=== PATIENT | female | born 1945 | race Caucasian/White ===

== ENCOUNTER 2016-09-18 08:38 | Outpatient (CLI) | payer MEDICARE ==
[2016-09-18] MEDS ORDERED: BARIUM SULFATE 135 ML BOTTLE PO ONE (09:40)
[2016-09-18] MEDS ORDERED: BARIUM SULFATE 176 GM BOTTLE PO ONE (09:40)
== END 2016-09-18 08:39 | disposition home or self-care (01) ==
DX: K21.9 Gastro-esophageal reflux disease without esophagitis (principal); K44.9 Diaphragmatic hernia without obstruction or gangrene; R05 Cough
CPT/HCPCS: 74220; A9270

== ENCOUNTER 2016-10-02 13:00 | Outpatient (CLI) | payer MEDICARE | END 2016-10-02 13:01 | disposition home or self-care (01) | DX: G23.1 Progressive supranuclear ophthalmoplegia [Steele-Richardson-Olszewski] (principal); F32.9 Major depressive disorder, single episode, unspecified; Z66 Do not resuscitate; Z87.891 Personal history of nicotine dependence; Z91.81 History of falling; Z51.5 Encounter for palliative care ==

== ENCOUNTER 2016-11-09 | Outpatient (CLI) | payer MEDICARE | END 2016-11-09 09:51 | disposition home or self-care (01) ==

== ENCOUNTER 2016-11-12 | Outpatient (CLI) | payer MEDICARE | END 2016-11-12 17:30 | disposition critical access hospital (66) | CPT/HCPCS: A0425; A0429 ==

== ENCOUNTER 2016-11-12 17:44 | Emergency (ER) | payer MEDICARE ==
[2016-11-12] MEDS ORDERED: TETANUS/DIPHTHERIA/PERTUSSIS 0.5 ML SYRINGE IM ONE ×2 (17:49→17:51)
== END 2016-11-12 19:55 | disposition home or self-care (01) ==
DX: S01.01XA Laceration without foreign body of scalp, initial encounter (principal); W01.0XXA Fall on same level from slipping, tripping and stumbling without subsequent striking against object, initial encounter; Y92.129 Unspecified place in nursing home as the place of occurrence of the external cause; G23.1 Progressive supranuclear ophthalmoplegia [Steele-Richardson-Olszewski]; F03.90 Unspecified dementia, unspecified severity, without behavioral disturbance, psychotic disturbance, mood disturbance, and anxiety; I10 Essential (primary) hypertension; E11.9 Type 2 diabetes mellitus without complications; Z91.81 History of falling; Z79.82 Long term (current) use of aspirin; Z79.84 Long term (current) use of oral hypoglycemic drugs

== ENCOUNTER 2016-12-13 13:30 | Outpatient (CLI) | payer MEDICARE | END 2016-12-13 13:31 | disposition home or self-care (01) | DX: Z51.5 Encounter for palliative care (principal); G23.1 Progressive supranuclear ophthalmoplegia [Steele-Richardson-Olszewski]; F32.3 Major depressive disorder, single episode, severe with psychotic features; R13.10 Dysphagia, unspecified; N39.0 Urinary tract infection, site not specified; Z91.81 History of falling; Z66 Do not resuscitate ==

== ENCOUNTER 2017-01-09 13:00 | Outpatient (CLI) | payer MEDICARE | END 2017-01-09 13:01 | disposition home or self-care (01) | DX: Z51.5 Encounter for palliative care (principal); G23.1 Progressive supranuclear ophthalmoplegia [Steele-Richardson-Olszewski]; R13.10 Dysphagia, unspecified; M25.512 Pain in left shoulder; K21.9 Gastro-esophageal reflux disease without esophagitis; F43.21 Adjustment disorder with depressed mood; E11.9 Type 2 diabetes mellitus without complications; Z91.81 History of falling; Z66 Do not resuscitate; Z87.440 Personal history of urinary (tract) infections ==

== ENCOUNTER 2017-02-07 14:00 | Outpatient (CLI) | payer MEDICARE ==
--- NOTE | 2017-02-07 21:15 | CONSULTATION NOTE ---
DATE OF CONSULTATION: 02/07/2017 00:00:00 REQUESTING PROVIDER: Kamran Balderrama MD. TIME OF VISIT: [id number]. TOPIC: Followup palliative care consult. Thank you, Dr. Balderrama for asking the palliative care consult service to be involved in the care of y our patient and continue to provide support for symptom management and goals of care, as well as murray sition planning. The patient is seen in her home setting, which is the dementia unit at [facility]. It is considerable and taxing effort for her to leave the home. She has progressive symptoms and sequela from her progressive supranuclear palsy. BRIEF HISTORY OF PRESENT ILLNESS UPDATE: This is a jose 72-year-old woman who has worsening progres sive supranuclear palsy originally noted as far as symptoms in 2010. She has been having rapid functi onal decline over the last several months to a year with visual deficits worsening, some change in he r cognition with impulsivity and difficulty with choking and swallowing, as well as functional declin e. In the context of progression of her disease she would be considered late stage. I am seeing her t yanick because she had told the staff that she had wanted to . She reports that she is uncomfortable all the time. Staff reports she has been intermittently tearful and has had a sad weekend. Has not h ad any suicidal action. I did followup with Louie, who is her sister, she had the same experience, t he patient wanted to "kill herself" and I am trying to discern the patient's current level of distres s and level of depression today. The patient does admit to feeling like she is dying. Does report she is somewhat scared and anxious about this. When asked if she wanted further information she declined . She does express feelings of overwhelming loss, recognizing she is not going to return to any level of independence and continues to become more and more dependent. The patient is quite tearful, able to express her sadness and did explore her feelings around this. This is the first time she has reall y admitted to depression beyond grief and depressive symptoms, and is willing to explore antidepress ants in the context of this. She is in a single room now. Her sister is doing as much as she can to b reak up the isolation and provide activities. The patient appreciates this, does enjoy human interact ion, field trips and activities. She had been out on the bus today. She does appear to have continued toning back in position, stiffening. She reports her vision changes are worsening, she sits with her head back and pressure on her neck, up most of the time. She has fregoso d increased left shoulder pain, most recently has been trialed on tramadol 50 mg b.i.d. from her [facility] physician with some relief, but not significant improvement. She did have a fall last week t hat did result in some left rib pain. On examination, she has some point tenderness just below her le ft breast. Unable to palpate any displaced fracture. She is able to be assisted sitting and standing without any sign of pain behaviors. She was able to weight bear and ambulate a few steps. She is work ing with physical therapy on a private-pay basis through [facility]. They have been working on stab ilizing and slowing her gait by adding weight to her walker, stretching and working on lowering her t one of her cervical extensors in hopes to help her swelling and posture and they are seeing her about 2 times a week. She does have the right to refuse this and we did explore also accessing her benefit to be able to access speech therapy as well. She has been evaluated by Na Bragg and would like t o continue to work with her. When asked what the patient worries about most, it continues to be her family. She does feel like a b urden. This is both Louie, her sister and her ex- Mohinder who visits her once a week. She is ab le to express some anticipatory grieving over leaving them and the sadness that they are going to fee l upon her . SYMPTOM BURDEN: As noted above. Left shoulder pain does appear to be worsening as far severity. She d oes report fatigue, does report she is sleeping better. She reports her appetite is good. She does pe rceive her quality of life as quite limited. CODE STATUS: THE PATIENT IS A DO NOT ATTEMPT RESUSCITATION, LIMITED ADDITIONAL INTERVENTIONS, USE OF ANTIBIOTICS IF LIFE CAN BE PROLONGED AND TRIAL OF MEDICALLY ASSISTED NUTRITION IF IT WAS GOING TO ALIREZA SAUNDERS QUALITY OF LIFE. SHELDON NICOLE IS HER SISTER AND DURABLE [facility] [place] THERAPEUTIC RECREATION DIRECTOR FOR MEDICAL A FFAIRS. HER PHONE NUMBER IS [phone], AND HER CELL IS [phone]. 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 She retired early a t age 55 related to her was a bit older wanting her to be available to take care of him. Unfo rtunately, her last year in a car accident. Her family is very much supportive. She has lost her daughter to cancer. She does have a son who does visit her intermittently. She does have gra ndchildren that check on her regularly as well. She is Gnosticism by background and receives quite a bi t of support from the ongoing weekly visits from the palliative care floor grinder. PERFORMANCE STATUS: The patient does need major assistance and cueing for all transfers. She does hav e trouble with her posture given her vision limitations and her tendency to tip. She has had some imp ulsivity. She has now had another fall and would put her at a palliative care performance status at 5 0%, of course, what is concerning is her progressive dysphagia. She did see the speech therapist who did progress her diet and provided some fairly prescriptive instructions as far as precautions. Her s ister is working on getting someone to be able to feed her. She has found someone for meals on , all 3 meals, and Wednesdays lunch and dinner. REVIEW OF SYSTEMS: ENT: Reports continued vision loss, is unable to really describe, but she can still see. CARDIOVASCULAR: Denies chest pain, no further GERD. RESPIRATORY: Denies shortness of breath though she does have intermittent choking with eating. GASTROINTESTINAL: She is incontinent of stool, reports her appetite has been good. GENITOURINARY: She most recently was treated last week with Cipro. She denies any further signs or sy mptoms. She reports she is aware of when she has burning and foul odor. MUSCULOSKELETAL: Continues to have muscle stiffness and intermittent tremors and some freezing. She i s quite stiff when trying to move. INTEGUMENTARY: Confirmed with caregivers no skin breakdown. NEUROLOGIC: She does have some intermittent short-term memory deficits though she is able to particip ate in the conversation. Her speech is getting much more difficult to understand, so it is hard to re ally get a clear picture of her cognitive status though she was quite engaged and conversant today, p articularly around her emotional distress. PSYCHIATRIC: She does admit to grief and loss and does appear somewhat anxious, particularly around t he recognition she is dying from her disease process. ENDOCRINE: No history of diabetes or hypothyroidism. HEMATOLOGIC/IMMUNOLOGIC: Recently treated for a urinary tract infection last week. Unfortunately was not able to get a culture and sensitivity. It was mixed lopez. PHYSICAL EXAMINATION: GENERAL: She is lying in bed. She does have her neck flexed back. She is gazing at me, able to make e ye contact. Her speech is very soft and difficult to understand. ENT: Mucous membranes are moist, no signs or symptoms of candidiasis. NECK: Slightly thickened. Trachea midline. RESPIRATORY: Breath sounds are diminished but clear. CARDIOVASCULAR: Her temperature 96, O2 saturation on room air 95%, pulse is 68, blood pressure was 11 2/64. EXTREMITIES: No lower extremity edema. She does need major assistance from getting from sitting to st anding. RESPIRATORY: No cough noted during conversation. PALLIATIVE CARE DISCUSSION: Who is present, myself and the patient. It was as above, the patient admi tted to the realization that she is dying and that things are not going to get better. Voiced concern s over all the things that she has yet to do. She is worried of course about her family, and does adm it to depression, is quite tearful through our conversation. In our discussion, we did discuss trying to address her looking at her pain, as well as her trying a medication for her depression. Unfortuna tely at that point in time, I did not recognize reviewing the change of her pain medication. She just presents with overwhelming feeling of sadness and appears to be in fairly significant amount of exis tential distress. I did follow up with a long lengthy conversation again with Louie, her DPOA, recognizing that the pa sergey's awareness that she is dying. Had expressed to her sister, as well, "that I don't want it . " She has been trying to put together more support, more interactions, things that might improve her quality of life, recognizing that her quantity of life is limited. She has made arrangements for new full size bed with the ability to elevate the head. She continues to allow whatever services that [facility] ht be of help to her and take her out for rides, anything to do some work to make her life more mera able. We did broach the fact that the patient at some point will hit a decision point that may look l yasmin transitioning to hospice, particularly the patient does not want to extend her current quality of life or her perceived suffering. We did agree though that at this point in time we would address her issue of discomfort and try and lighten her depression with some medication. Reassurance and recogni tion was given of what she is currently providing for her sister. IMPRESSION: This is a 72-year-old woman with progressive supranuclear palsy who continues to have wor sening functional and some cognitive decline. She does present today with major depressive disorder w ith persistent pervasive feelings of sadness and distress. She is appropriately grieving her current loss of quality of life and has agreed to trial antidepressant recognizing of course this may or may not be of help to her. She continues to have pain and discomfort, suspect most likely acute pain from her ribs is a contusion. RECOMMENDATIONS/COUNSELING DONE: 1. Progressive supranuclear palsy continues with both functional and considerable decline. It is diff icult to tease out cognitive decline. Will have physical therapy come back and do an evaluation for s afety, positioning and any equipment adjustments, as well as to address if there is further intervent ion available for her pain relief of her left shoulder. Also, will have speech therapy come to help w ith caregiver training for feeding and to assist with communication and voice quality. 2. Dysphagia. They do have an evaluation done from Na Bragg, speech therapy with diet modificatio ns and instructions for caregivers to follow. Na would like to continue to follow her to be able t o modify as appropriate. 3. Left shoulder pain. I will go ahead and discontinue the Tramadol 50 mg b.i.d. secondary to its int eractions with antidepressants. I did consult with her PCP and did in agreement to move forward with an opioids, will start with 1/2 tab t.i.d. and evaluate her tolerance and make sure she has no sedati on, nausea, or difficulty with the medication with confusion, then moved to a full tab t.i.d. for bet ter pain control. Did discuss with her sister related concerns about rib fracture. The patient andi roberto does not present with displaced symptoms. Would not recommend an x-ray at this point in time, as it would not change our treatment plan. 4. Major depressive disorder, poorly controlled. The patient now willing to consider antidepressant a nd will go ahead and start her on escitalopram 10 mg daily and titrate accordingly. Orders were writt en and are sent to facility and [facility]. Counseling was provided and acknowledged normalizing her cu rrent feelings of loss and concern about her eminent decline related to her disease process. 5. Advanced care planning. I have spoken with her sister, Louie, as far as moving forward on goals o f care in the context of her continued current decline, it is a quite complex situation. She is at hi gh risk for sequela of a fall or aspiration. I suspect we are moving into the 6 months or less progno sis, the need to further define this patient's goals of care. [id number] health is considerable and taxing effort for the patient to leave the facility to receive services. She requires PT for evaluation of current safety equipment, the need for transfe r retaining, OT for management of left shoulder pain for "frozen shoulder" and ST for assessment and caregiver training for feeding techniques, as well as communication. TIME SPENT: 60 minutes with greater than 50% of this done in counseling and coordination of care with in the facility with staff, followup with sister, review of symptom burden and anticipatory guidance. JOB #: [id number] EXT JOB #:[id number]
== END 2017-02-07 14:01 | disposition home or self-care (01) ==
LOC: PC 14:00
PROVIDERS: ATTEND Nurse Practitioner Adult Health
DX: Z51.5 Encounter for palliative care (principal); G23.1 Progressive supranuclear ophthalmoplegia [Steele-Richardson-Olszewski]; R13.10 Dysphagia, unspecified; M25.512 Pain in left shoulder; F32.9 Major depressive disorder, single episode, unspecified; Z87.440 Personal history of urinary (tract) infections; Z91.81 History of falling; Z66 Do not resuscitate

== ENCOUNTER 2017-02-22 02:57 | Outpatient (CLI) | payer MEDICARE | END 2017-02-22 02:58 | disposition critical access hospital (66) | LOC: EMS 02:57 | PROVIDERS: ATTEND Surgery | DX: S01.01XA Laceration without foreign body of scalp, initial encounter (principal); W01.198A Fall on same level from slipping, tripping and stumbling with subsequent striking against other object, initial encounter; Y92.121 Bathroom in nursing home as the place of occurrence of the external cause | CPT/HCPCS: A0425; A0429 ==

== ENCOUNTER 2017-02-22 03:10 | Emergency (ER) | payer MEDICARE ==
--- NOTE | 2017-02-22 03:29 | ED Physician Documentation ---
PD HPI HEAD INJURY - Stated complaint Stated Complaint: GLF - Chief complaint Chief Complaint: General - History obtained from History obtained from: EMS - History of Present Illness Mechanism of head injury: Fell, Laceration Where head injury occurred: Home Timing - onset: Enter time (229), Today Location of injury: Back Quality of pain: Pain Associated symptoms: Amnesia. No: LOC, AMS, Nausea / vomiting, Neck pain, Paresthesias, Seizures, Ear drainage, Nasal drainage Symptoms improve with: Rest Symptoms worsen with: Palpation, Movement Contributing factors: No: Anticoagulated Similar symptoms before: Has not had sx before Recently seen: Not recently seen - Additional information Additional information: 72 y/o female with advanced dementia due to supranuclear palsy did not push her call button to go to the bathroom and fell in the bathroom striking the back of her head. She denies neck pain, nausea or dizziness. 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 - Present Medications Home Medications: Ambulatory Orders Medication Instructions Recorded Confirmed Aspirin [Aspir 81] 81 mg PO DAILY 06/03/13 11/12/16 Losartan [Cozaar] 25 mg PO DAILY 06/03/13 11/12/16 Metformin HCl [Glumetza] 500 mg PO BID 06/03/13 11/12/16 Pravastatin Sodium 40 mg PO HS 06/03/13 11/12/16 Brimonidine 0.2% Ophth Drops 1 drops BID 11/12/16 11/12/16 [Alphagan P 0.2% Ophth Drops] Dorzolamide 2% Ophth Drops 1 drops BID 11/12/16 11/12/16 [Trusopt 2% Ophth Drops] Erythromycin Base [Erythromycin 1 applic BID 11/12/16 11/12/16 Ophthalmic Ointment] Latanoprost 0.005% Ophth Drops 1 drops DAILY 11/12/16 11/12/16 [Xalatan Ophth Drops] - Allergies Allergies/Adverse Reactions: Allergies Allergy/AdvReac Type Severity Reaction Status Date / Time Iodinated Contrast- Oral and Allergy Severe Respiratory Verified 02/22/17 03:16 IV Dye [Iodinated Contrast Media - IV Dye] bee pollen [Bee Pollen] Allergy Hives Verified 02/22/17 03:16 - Social History Does the pt smoke?: No Smoking Status: Never smoker Does the pt drink ETOH?: No Does the pt have substance abuse?: No - Immunizations Immunizations are current?: Yes - POLST Patient has POLST: No PD ED PE NORMAL - Vitals Vital signs reviewed: Yes (hypertensive ) - General General: Well developed/nourished, Other (The patient has a wide open eye stare and looks surprised. ) - HEENT HEENT: Other (There is limited EOM. There is a 2cm laceration to the left occiput with a tender hematoma and no crepitance. ) - Neck Neck: Other (The neck is rigid and extended but there is no bony tenderness. ) - Cardiac Cardiac: RRR, No murmur - Respiratory Respiratory: No respiratory distress, Clear bilaterally - Abdomen Abdomen: Soft, Non tender - Back Back: No CVA TTP, No spinal TTP - Derm Derm: Normal color, Warm and dry, No rash - Extremities Extremities: No deformity, No edema Results - Vitals Vitals: Vital Signs - 24 hr 02/22/17 03:12 Temperature 37.1 C Heart Rate 81 Respiratory 20 Rate Blood Pressure 163/101 H O2 Saturation 96 Oxygen O2 Source Room air - Rads (name of study) CT cervical spine Radiology: Prelim report reviewed (Impression: Stable degenerative changes in the cervical spine since 11/12/2016. No fracture is identified.), EMP read indepedently, See rad report CT head Radiology: Prelim report reviewed (Impression: No acute or focal intracranial abnormality.), EMP read indepedently, See rad report Procedures - Laceration (location) scalp Length in cm: 2 Wound type: Irregular, Clean Neurovascular status: Sensory intact, Motor intact, Vascular intact Anesthesia: Lidocaine 1% Wound Preparation: Hibiclens, Irrigated copiously NS, Wound explored, To the base Skin layer closure: [place] Other: Patient tolerated well, No complications, Tetanus UTD Complexity: Simple PD MEDICAL DECISION MAKING - ED course Complexity details: reviewed old records, reviewed results, re-evaluated patient , considered differential, d/w patient ED course: 72 y/o female with progressive supranuclear palsy fell in the bathroom this evening unwitnessed. She has a laceration to the scalp and this is stapled. CT of the head and neck were negative for acute. Departure - Departure Disposition: 01 Home, Self Care Clinical Impression: Fall from slip, trip, or stumble Qualifiers: Encounter type: initial encounter Qualified Code(s): W01.0XXA - Fall on same level from slipping, tripping and stumbling without subsequent striking against object, initial encounter Scalp laceration Qualifiers: Encounter type: initial encounter Qualified Code(s): S01.01XA - Laceration without foreign body of scalp, initial encounter Condition: Stable Instructions: ED Laceration Scalp Stitch Or Stap Follow-Up: Kamran Balderrama DO [Provider Admit Priv/Credential] - Comments: jesús out in 7-10 days
--- NOTE | 2017-02-22 04:18 | CT Preliminary Report ---
Exam: CT Head W/O IMPRESSION: No acute or focal intracranial abnormality. [facility] SITE ID: [id number]
--- NOTE | 2017-02-22 04:21 | CT Report ---
EXAM: CT HEAD EXAM DATE: 02/22/2017 04:04 AM. CLINICAL HISTORY: Unwitnessed fall. Head injury. COMPARISON: 11/12/2016. TECHNIQUE: Multiaxial CT images were obtained from the foramen magnum to the vertex. IV contrast: Non e. Reformats: Coronal. In accordance with CT protocol optimization, one or more of the following dose reduction techniques w ere utilized for this exam: automated exposure control, adjustment of mA and/or KV based on patient s ize, or use of iterative reconstructive technique. FINDINGS: Parenchyma: No intraparenchymal hemorrhage. No evidence of mass, midline shift, or CT findings of inf arction. Izaguirre-white differentiation is distinct. Extraaxial Spaces: Normal for age. No subdural or epidural collections identified. Ventricles: Normal in size and position. Sinuses: Imaged paranasal sinuses, orbits, and mastoids show no significant abnormality. Bones: No evidence of fracture or calvarial defect. Other: Extracranial soft tissue swelling over the left parietal region. IMPRESSION: No acute or focal intracranial abnormality. [facility] Referring Provider Line: [phone] SITE ID: [id number]
[2017-02-22] MEDS ORDERED: LIDOCAINE 1% 2 ML VIAL ONE (04:36)
--- NOTE | 2017-02-22 05:05 | CT Preliminary Report ---
Exam: CT Cervical Spine W/O IMPRESSION: Stable degenerative changes in the cervical spine since 11/12/2016. No fracture is identi fied. [facility] SITE ID: [id number]
--- NOTE | 2017-02-22 05:08 | CT Report ---
EXAM: CT CERVICAL SPINE WITHOUT CONTRAST DATE: 02/22/2017 04:04 AM HISTORY: Unwitnessed fall. Evaluate for cervical spine fracture COMPARISONS: 11/12/2016. TECHNIQUE: Thin-section axial images were acquired of the cervical spine without contrast. Post-proce ssing: Coronal and sagittal reformats. Other: None. In accordance with CT protocol optimization, one or more of the following dose reduction techniques w ere utilized for this exam: automated exposure control, adjustment of mA and/or KV based on patient s ize, or use of iterative reconstructive technique. FINDINGS: Alignment: Normal. No scoliosis or spondylolisthesis. Bones: No fracture or bone lesion. Interspace Levels/Facets: Stable degenerative changes in the cervical spine, most pronounced involving the disk spaces from C3- C4 through C6-C7, inclusive. Endplate osteophyte narrows the central canal and foramina bilaterally a t these levels, unchanged. Musculature: Normal. No fatty atrophy. Other: The paravertebral and prevertebral soft tissues are normal. The lung apices are clear. IMPRESSION: Stable degenerative changes in the cervical spine since 11/12/2016. No fracture is identi fied. [facility] Referring Provider Line: [phone] SITE ID: [id number]
[2017-02-22 05:15] VITALS: BP 159/75
== END 2017-02-22 07:21 | disposition home or self-care (01) ==
LOC: EDUNIT# → ED 03:10
DX: S01.01XA Laceration without foreign body of scalp, initial encounter (principal); S00.03XA Contusion of scalp, initial encounter; W01.0XXA Fall on same level from slipping, tripping and stumbling without subsequent striking against object, initial encounter; Y92.121 Bathroom in nursing home as the place of occurrence of the external cause; G23.1 Progressive supranuclear ophthalmoplegia [Steele-Richardson-Olszewski]; F03.90 Unspecified dementia, unspecified severity, without behavioral disturbance, psychotic disturbance, mood disturbance, and anxiety; E11.9 Type 2 diabetes mellitus without complications; Z79.84 Long term (current) use of oral hypoglycemic drugs; I10 Essential (primary) hypertension; Z79.82 Long term (current) use of aspirin
CPT/HCPCS: 12001; 70450; 72125; 99284

== ENCOUNTER 2017-03-01 13:35 | Outpatient (CLI) | payer MEDICARE ==
--- NOTE | 2017-03-02 18:09 | CONSULTATION NOTE ---
DATE OF CONSULTATION: 03/01/2017 00:00:00 REQUESTING PROVIDER: Kamran Balderrama DO. TIME OF VISIT: 12:45 to 01:45. Thank you, Dr. Balderrama, for asking the palliative care consult service to be involved in the care of your patient and providing support for pain and symptom management, goals of care, as well as the transition planning. The patient is seen in her home setting, which is the dementia unit at [facility]. It is considerable and taxing effort for her to leave the home. She has progressive symptoms and sequela from her progressive supranuclear palsy. BRIEF HISTORY OF PRESENT ILLNESS UPDATE: This is a jose 72-year-old woman who has worsening progressive supranuclear palsy originally noted as far as symptoms back in 2010. She has had a rapid decline over the last several months to a year with continued visual deficits worsening, able to only see blurred images, some change in her cognition with some fullness, impulsivity, difficulty with choking and swallowing, as well as functional decline. She is mostly wheelchair bound at this point. The patient last seen had an exacerbation of her depression and her bilateral shoulder pain. Today, she presents actually in a fairly good mood with good interaction. She is able to say she is not depressed and that she is not worrying about anything. She does appear with her voice though it is soft, a little bit more modulated. She is not tearing or crying through the visit today. Her other presenting symptom is bilateral shoulder pain. She reports currently it is a 0/10, at worst prior to medication, initiation of the hydrocodone, it was 9/10. We had started her on hydrocodone 5/325 mg half tab t.i.d. and after 1 week increased it to 1 tab t.i.d. She reports that it made her feel too foggy and more out of it, so she reports she wanted to decrease it back down. Currently, she is satisfied with her current regimen. She can have extra half tab for breakthrough pain if needed. SYMPTOM BURDEN: Pain as noted above. She does have ongoing fatigue. She is sleeping well at night though, but still sleeps some through the day. Part of this is isolation and boredom, other is that she does tire easily with increased activity. She denies nausea. Her appetite has been good. She denies shortness of breath, depression as noted above, and perceives currently her quality of life is acceptable. CODE STATUS: THE PATIENT IS A DO NOT ATTEMPT RESUSCITATION, LIMITED ADDITIONAL INTERVENTIONS, USE OF ANTIBIOTICS IF LIFE CAN BE PROLONGED AND TRIAL OF MEDICALLY ASSISTED NUTRITION IF IT WERE GOING TO SUSTAIN CURRENT QUALITY OF LIFE. JESSICA IS HER SISTER AND DURABLE [facility] PROC[employer] RN FOR MEDICAL AFFAIRS. HER PHONE NUMBER IS [phone] AND HER CELL IS [phone]. BRIEF SOCIAL HISTORY: The patient unfortunately had to move from [facility] in to [facility]. She does have some short-term memory and cognitive deficits as well as impulsivity, but was unable to get her needs met over on the assisted living side. This has been a very difficult adjustment for her. She currently now, though, has her own apartment, she got her full bed and she is absolutely thrilled and her sister, Jessica, has done many things to try and support her far as decrease in isolation and breaking up her days. She very much enjoys the weekly visits from the palliative care community outreach worker, she is Buddhist by background and her kalani is important to her. She does have other family members that visit and Louie has made arrangements for paid caregiver to come help with feeding. PERFORMANCE STATUS: The patient needs major assistance and cueing for all transfers and bed mobility. She does have a tendency with her posture to tone back. Home health, PT and speech therapy have been working with her, going to trial a [id number] wheelchair. She is dependent for bathing. REVIEW OF SYSTEMS: ENT: Reports continues vision loss, does have difficulty describing this. CARDIOVASCULAR: Denies chest pain. RESPIRATORY: Denies shortness of breath. She does have intermittent choking when she eats and drinks, drinking more so. This is quite frightening to her. GASTROINTESTINAL: She is incontinent of stool. She did have some diarrhea last week. Reports that she is moving her bowels every second or third day. Denies constipation. She is currently not on any bowel medications. MUSCULOSKELETAL: She continues to have muscle stiffening, intermittent tremors and some freezing. She is quite stiff to move. NEUROLOGIC: She does have some short-term memory deficits though she is quite able to participate and respond in conversation. Her responses though are somewhat delayed. Her speech is more difficult for her and her voice is quite soft. PSYCHIATRIC: She does appear to have improved mood. She was talking to her ex- Mohinder on arrival, it does appear they talk frequently on the phone. This does provide her some emotional support. She is unable to really talk much , but does listen to him extensively. ENDOCRINE: No history of diabetes or hypothyroidism. HEMATOLOGIC/IMMUNOLOGIC: She continues to have recurrent urinary tract infections. Unfortunately is describing burning and discomfort the last few days. Last culture was mixed lopez. PHYSICAL EXAMINATION: GENERAL: She is lying in the bed. She looks very comfortable in her new full bed. She is gazing and trying to keep contact with me. Her speech is very soft and more difficult to understand. ENT: Mucous membranes are moist, no signs or symptoms of candidiasis. NECK: Slightly thickened with her head tipped back. Trachea midline. RESPIRATORY: Breath sounds are diminished but clear. CARDIOVASCULAR: Her temperature is 97.0, pulse is 72, O2 saturation is 93, blood pressure 108/62. EXTREMITIES: She has no lower extremity edema. Does need major assistance in getting from sitting to standing and bed mobility. PALLIATIVE CARE DISCUSSION: WHO WAS PRESENT: Myself, the patient and Sofia Andrade , nurse practitioner. The patient reports she is not worrying about anything, she has nothing that she really wants to talk about. She is feeling less depressed and more encouraged. She does have this "new person" who is helping her with feeding. She finds this quite challenging, as she talks so fast and cannot follow her. She reports that she "jabbers." Her biggest concern was getting her jesús out today. We did not really explore anything further other than she is finding much support from the palliative care team. IMPRESSION: This is a 72-year-old woman with progressive supranuclear palsy who continues to have worsening functional status. She did have a fall that resulted in jesús on 02/22/2017. Her CT of her head and neck were unremarkable. She does present today with improved mood, better pain control and perceives better quality of life with the recent modifications to her bedroom with the bed and looking forward to getting the chair. She continues to be supported by the palliative care consult team through community outreach worker, social media strategist and nurse practitioner. RECOMMENDATIONS/COUNSELING DONE: 1. Head laceration from a ground level fall. She had 2 jesús. The area does appear well healed. The small amount of crusting of eschar area was clean. Lenox were removed. Just a slight bit of oozing, is no area to really put a dressing on. They did not cut her hair. I did tell her though it will just work its way off as far as she when she is shampooing her hair. 2. Urinary tract infection symptoms. I am concerned, we did not have a CandS last time to treat. She has been treated twice now with Cipro. I did go ahead and get a cath specimen and hoping to further treat this. She is having discomfort and pain and burning and was very tender in obtaining the specimen. There are no signs or symptoms of candidiasis, but it is red and somewhat swollen in her vaginal area. Specimen was dropped off at [facility]. 3. Dysphagia. She is being worked with Ivana ERICKSON and Na SACNHEZ. They are expecting a [id number] wheelchair, will continue to work with positioning and aspiration precautions and diet. I did speak with the dance director as far as a followup with the person feeding with them to create as less distracting environment so that she can concentrate on eating and not trying to talk. 4. Left shoulder pain. She is being well managed on her hydrocodone 1/2 tab t.i.d. She was unable to tolerate a larger dose. She does feel that her pain is well controlled on his current regimen. We will need to watch for constipation. Currently, she is moving her bowels without difficulty. 5. Major depressive disorder, poorly controlled. She has been started on escitalopram. At this point in time, it does appear we do not need to titrate this. Counseling has continued to provide as far as support through the interdisciplinary team. TIME SPENT: 60 minutes with greater than 50% of this done in counseling and coordination of care, within the facility with staff, followup with the directive of nursing, as well as review of symptom burden, anticipatory guidance and obtaining a urine specimen and getting it to the lab. ALLERGIES: NO KNOWN DRUG ALLERGIES. MEDICATION LIST: 1. Woman's 1 daily multivitamin 1 time a day. 2. Brimonidine 0.2% eyedrops 1 drop both eyes 2 times a day. 3. Torsemide HCL 2% eyedrops 1 in both eyes b.i.d.. 4. Metformin 500 mg. 1 tab b.i.d.. 5. Hydrocodone/acetaminophen 5/325 mg 1/2 tab t.i.d. around the clock. 6. Hydrocodone/acetaminophen tablet 5/325 mg 1/2 tab p.r.n.. 7. Acetaminophen 500 mg. 1 tab every 5 hours p.r.n. for breakthrough pain. 8. Bisacodyl suppository 10 mg if constipation not relieved in 38 hours. 9. Blood glucose monitoring for signs and symptoms of hypoglycemia. 10. Milk of magnesia 30 mg q.24h as needed for constipation. 11. Robitussin syrup 100/10 mg/5 ml, 10 ml q.6h hours p.r.n. cough. 12. Pravastatin 40 mg daily. 13. Miralax 1/2 scoop daily for constipation. 14. Lexapro 10 mg daily. 15. Latanoprost 0.005% eyedrops, 1 drop b.i.d. Of note, her weight is diminished through the week on 02/15 at 174.6, 02/22 at 173.4, and 03/01 at 171.2. ADDENDUM 03/02/2017 C & S not available, past microbiolgy had very little resistance. Has had two rounds of short CIPRO. Ordered Bactrim DS BID for 10 days, called Louie to give message to Katheryn and rX faxed to [employer] [facility] [employer]. Update and support to sister provided. JOB #: [id number] EXT JOB #:[id number] MTDD
== END 2017-03-01 13:36 | disposition home or self-care (01) ==
LOC: PC 13:35
PROVIDERS: ATTEND Nurse Practitioner Adult Health
DX: Z51.5 Encounter for palliative care (principal); S01.91XD Laceration without foreign body of unspecified part of head, subsequent encounter; R30.0 Dysuria; R13.10 Dysphagia, unspecified; F32.9 Major depressive disorder, single episode, unspecified; M25.512 Pain in left shoulder; M25.511 Pain in right shoulder; G23.1 Progressive supranuclear ophthalmoplegia [Steele-Richardson-Olszewski]; Z99.3 Dependence on wheelchair; Z79.891 Long term (current) use of opiate analgesic; Z66 Do not resuscitate; Z91.81 History of falling; Z87.440 Personal history of urinary (tract) infections

== ENCOUNTER 2017-03-01 14:00 | Outpatient (CLI) | payer MEDICARE ==
[2017-03-01 16:55] LABS: BILIRUBIN,URINE NEGATIVE (NEGATIVE); PH,URINE 6.5 PH (5.0-7.5)
[2017-03-01 17:14] LABS: UA w/ MICROSCOPIC CHARGE YES
[2017-03-01 17:15] LABS: UR CULTURE IF IND INDICATED
== END 2017-03-01 14:01 | disposition home or self-care (01) ==
LOC: LAB.R 14:00
PROVIDERS: ATTEND Nurse Practitioner Adult Health
DX: R30.9 Painful micturition, unspecified (principal)
CPT/HCPCS: 81001; 81003; 87077; 87086

== ENCOUNTER 2017-03-28 15:00 | Outpatient (CLI) | payer MEDICARE ==
--- NOTE | 2017-03-28 20:00 | PROVIDER PROGRESS NOTE ---
Palliative Care Follow Up - Referral Referring Provider: Dr. Ceci Balderrama Time of Visit: 9761-6705 Referral setting: Assisted living (Patient seen at [facility], it is a taxing and considerable effort for her to get out of facility, as well as to evaluate current care plan and family conference) Referral Reason: Progressive Supranuclear Palsy - Information Sources Records Reviewed: RN notes reviewed, Old records reviewed History obtained from: Patient, Family (sister Louie), Caregiver (Cintia RODRIGUEZ) Exam limitations: Clinical condition (Patient with more difficulty with speech and voice, hard to understand) - History of Present Illness Update Brief HPI Update: This is a jose 72 year old woman with progressive supranuclear palsy, who has had rapid decline even in the month since I last saw her. Her ability to swallow is very compromised both by her dysphagia, as well as her spastic neck, it is almost impossible to get her into a neutral position. Rehab services have been working with J brace, massage, and positioning in attempt to improve safety and positioning to aid with swallowing. The continued difficulty is she continues to choke, more prominently with food, but also on secretions. She does admit this is much more scarey and alarming to her than previously. It is also more concern for facility staff about her choking and having an incident. Speech has been working with CGs to educate on techniques. There is a referral for Dr. Barone in process to evaluate if botox may help with rigidity and process. My evaluation is that no matter even with positioning is that with her progressive disease, even positioning is not going to make up for her poor diaphragmatic cough and affect on swallowing/vocal chords. Thus our meeting today about goals of care and at juncture to discuss tube feedings. Patient has had about 5 pound weight loss, amazingly has not had aspiration pneumonia, but has been treated almost monthly with AB for UTI, wonder if that is treating some of it. She is getting frustrated as she is having more difficulty communicating, voice is soft, and words hard to understand. She has some impulsivity, and STM issues in that she had a fall on 03/24 when she got up without calling. She does report her pain is much better, her depression improved, and still enjoys her relationships with family and friends. Social History - Living Situation Living arrangement: Assisted living Living Situation: With family (sister oversees care, has hired some private assistance for feeding and socialization), With caregiver(s) Support System: Patient has had rapid decline, moved into [facility] end of last year and because of choking and increased needs transitioned over to [facility]. Her sister and family are her lifeline, she is very friendly with staff, has an ex Mohinder who provides support as well. She gets weekly visits from the Senior Operator. Medications/Allergies - Medications Home Medications: Ambulatory Orders Medication Instructions Recorded Confirmed Aspirin [Aspir 81] 81 mg PO DAILY 06/03/13 03/28/17 Losartan [Cozaar] 25 mg PO DAILY 06/03/13 03/28/17 Metformin HCl [Glumetza] 500 mg PO BID 06/03/13 03/28/17 Pravastatin Sodium 40 mg PO HS 06/03/13 03/28/17 Brimonidine 0.2% Ophth Drops 1 drops BID 11/12/16 03/28/17 [Alphagan P 0.2% Ophth Drops] Dorzolamide 2% Ophth Drops 1 drops BID 11/12/16 03/28/17 [Trusopt 2% Ophth Drops] Latanoprost 0.005% Ophth Drops 1 drops DAILY 11/12/16 03/28/17 [Xalatan Ophth Drops] Acetaminophen 500 mg PO Q6HR PRN 03/28/17 03/28/17 Bisacodyl Supp [Dulcolax Supp] 10 mg PO DAILY PRN 03/28/17 03/28/17 Escitalopram Oxalate 10 mg PO DAILY 03/28/17 03/28/17 HYDROcod/ACETAM 5/325 [Arroyo 5/325] 0.5 tab PO Q8HR PRN 03/28/17 03/28/17 HYDROcod/ACETAM 5/325 [Arroyo 5/325] 0.5 tab PO TID 03/28/17 03/28/17 Loperamide HCl [Loperamide] 1 tab PO Q6HR PRN 03/28/17 03/28/17 Magnesium Hydroxide [Milk of 30 ml PO DAILY PRN 03/28/17 03/28/17 Magnesia] Meloxicam 7.5 mg PO DAILY PRN 03/28/17 03/28/17 Multivitamin W/Minerals [Theragran 1 tab PO DAILY 03/28/17 03/28/17 M] Omeprazole [PriLOSEC] 20 mg PO DAILY 03/28/17 03/28/17 Polyethylene Glycol 3350 [Miralax] 8.5 gm PO DAILY 03/28/17 03/28/17 guaiFENesin/DEXTROMETHORPHAN 10 ml PO Q6HR PRN 03/28/17 03/28/17 [Robitussin Dm] - Allergies Allergies/Adverse Reactions: Allergies Allergy/AdvReac Type Severity Reaction Status Date / Time Iodinated Contrast- Oral and Allergy Severe Respiratory Verified 02/22/17 03:16 IV Dye [Iodinated Contrast Media - IV Dye] bee pollen [Bee Pollen] Allergy Hives Verified 02/22/17 03:16 Review of Systems - Constitutional Constitutional: reports: Fatigue, Weakness, Weight loss - Eyes Eyes: reports: Blurred vision, Vision loss, Other (very watery) - Ears, Nose & Throat Ears, Nose & Throat: denies: Nasal congestion - Cardiovascular Cariovascular: reports: Decr. exercise tolerance - Respiratory Respiratory: reports: Cough (choking with eating and secretions) - Gastrointestinal Gastrointestinal: denies: Abdominal pain, Constipation - Genitourinary Genitourinary: denies: Dysuria, Frequency, Urgency - Musculoskeletal Musculoskeletal: reports: Muscle aches, Stiffness, Limited range of motion, Muscle weakness - Integumentary Integumentary: reports: Dryness - Neurological Neurological: reports: General weakness, Memory problems - Psychiatric Psychiatric: reports: Depression (improved) - Endocrine Endocrine: reports: Other (bs good range) - Hematologic/Lymphatic Hematologic/Lymphatic: reports: Recurrent infections (utis) - All Other Systems All Other Systems: reports: Reviewed and negative Physical Examination - Vital Signs Temperature: 97.7 C Pulse Rate: 63 Respiratory Rate: 18 O2 Saturation: 94 (ra) Blood Pressure: 122/68 - Physical Exam General Appearance: positive: Mild distress, Anxious Eyes Bilateral: positive: Other (eyes watery with squinting) ENT: positive: No signs of dehydration Neck: positive: Stiff neck (thrust and toned) Cardiovascular: positive: Regular rate & rhythm Abdomen: positive: Nml bowel sounds Skin: positive: Pallor, Dryness Extremities: negative: No pedal edema Neurologic/Psychiatric: positive: Oriented x3, Weakness, Slurred/abnml speech Palliative Care - POLST Patient has POLST: Yes POLST Status: DNR, Limited Interventions Pain: Pain improved, Location ( right shoulder), Severity (none) Drowsiness: Mild (1-3) Nausea: None Anxiety: Mild (1-3) Dyspnea: None Anorexia: None Insomnia: Sleeps well Constipation: Yes, Opoid induced, Managed Feelings of wellbeing/Perceived Quality of Life: Worsening Performance Status: Patient totally dependent for ADLs and feeding, limited rom of arms/tremors. Can foot pedal w/c , needs assist with transfers. Dislikes tilt in space in the context of "no brakes" and can't "wheel it" with her feet. - Palliative Care Discussion: Patient discussion included sister Louie, myself, and Sofia LEE. Discussed options regarding PEG /tube feedings vs continued choking which is very scarey for her. She is aware another setting would be required, but is not ready to and afraid of dying at this time. She still enjoys being with her friends and family, staff enjoy her here. In attempting to address anticipatory guidance as communication is becoming very difficult, establishing a threshold to know when to stop the feeding. If perceived suffering or unable to be present with her loved ones, tried encouraging different weighs to communicate yes/no, on squeeze of no 2 for yes, then using thumbs up and thumbs down. Did use it in interpretting discussion to sister. Louie had asked I meet with her first, knows she does not want to be a burden on her, and feels may share more honestly if I had spoken to her prior to family meeting. Impression and Recommendations - Palliative Care Impression: This is a 72 year old woman with PSP who demonstrates ongoing decline, mostly functional in nature manifested by increased choking, dysphagia, difficulty communicating, increased vision changes,weight loss and increased weakness. At critical juncture of needing to decide on feeding tube vs no tf and hospice support, patient goals to include pursuing PEG tube with hope to improve QOL and extend quantity as well. Family conference with sister to confirm goals, plan will necessitate moving to next level of care. Recommendations/Counseling Done: 1. Dysphagia. Discussed case with Na Bragg HIGH SCHOOL LEARNING SUPPORT TEACHER, only so much with positioning can do to facilitate eating, agreed most problem with neurological decline and choking is very scary to patient. Will use what precautions and resources currently available until transition. Spoke with Dr. Balderrama regarding family conference, will make referral to surgeon on [place]. 2. Left shoulder pain, improved with rehab support and TID 1/2 tab hydrocodone TID, no changes needed. Not using any BTP meds. 3. UTI, finished last course of AB on 03/13. Denies any recurrent symptoms. 4. Major depressive disorder, single episode. Patient reports feelings of depression have much improved. Appears less tearful and able to tolerate very difficult conversation. Meeting weekly with Senior Operator. 5. Advanced Care Planning. Family conference for goals of care, will revisit again next week as very complicated decision making, weighing of benefits and burdens. Sister will start looking for other setting, GARBAGE TRUCK DRIVER back next week will alert her to assist with transition. POLST in place. Discussion of how to support patient in current setting until then with MICHAEL.
== END 2017-03-28 15:01 | disposition home or self-care (01) ==
LOC: PC 15:00
PROVIDERS: ATTEND Nurse Practitioner Adult Health
DX: Z51.5 Encounter for palliative care (principal); R13.10 Dysphagia, unspecified; M25.512 Pain in left shoulder; F32.9 Major depressive disorder, single episode, unspecified; G23.1 Progressive supranuclear ophthalmoplegia [Steele-Richardson-Olszewski]; Z87.440 Personal history of urinary (tract) infections; Z91.81 History of falling; Z66 Do not resuscitate; Z79.891 Long term (current) use of opiate analgesic

== ENCOUNTER 2017-04-04 14:30 | Outpatient (CLI) | payer MEDICARE ==
--- NOTE | 2017-04-04 18:14 | PROVIDER PROGRESS NOTE ---
Palliative Care Follow Up - Referral Referring Provider: Dr. Ceci Balderrama Time of Visit: 0750-0235 Referral setting: Assisted living Referral Reason: PSP - Information Sources History obtained from: Patient Exam limitations: Clinical condition (Some STM issues, voice is getting very soft and difficult to hear) - History of Present Illness Update Brief HPI Update: This is a jose 72 year old woman with progressive supranuclear palsy, who continues with decline, reports more difficulty with choking even since last week. Her ability to swallow is compromised by her dysphagia, spasticity in neck , and difficult cough effort. PT/ST have been working with J brace, massage, and positioning, and has private CG Ruben who is aiding with feeding, reports best technique is head forward and slowing down. Patient reports felt poorly for several days, but improved today, had fever, denies s/s UTI today, lungs are clear. Her voice is quite soft, more delayed speech in conversation, and concern about STM issues and impulsivity. Reports pain in shoulders/neck controlled, depression currently managed, and awaiting appointment with surgeon for PEG tube placement, Louie having difficulty finding jail that will accept her, goal of today's visit to revisit goals of care. Social History - Living Situation Living arrangement: Assisted living Living Situation: Other (staff very attentive, paid cg to help with feeding) Support System: Sister Louie KARIMI, working very hard on finding alternative placement; Mohinder ex advocate and support for patient as well Medications/Allergies - Medications Home Medications: Ambulatory Orders Medication Instructions Recorded Confirmed Aspirin [Aspir 81] 81 mg PO DAILY 06/03/13 03/28/17 Losartan [Cozaar] 25 mg PO DAILY 06/03/13 03/28/17 Metformin HCl [Glumetza] 500 mg PO BID 06/03/13 03/28/17 Pravastatin Sodium 40 mg PO HS 06/03/13 03/28/17 Brimonidine 0.2% Ophth Drops 1 drops BID 11/12/16 03/28/17 [Alphagan P 0.2% Ophth Drops] Dorzolamide 2% Ophth Drops 1 drops BID 11/12/16 03/28/17 [Trusopt 2% Ophth Drops] Latanoprost 0.005% Ophth Drops 1 drops DAILY 11/12/16 03/28/17 [Xalatan Ophth Drops] Acetaminophen 500 mg PO Q6HR PRN 03/28/17 03/28/17 Bisacodyl Supp [Dulcolax Supp] 10 mg PO DAILY PRN 03/28/17 03/28/17 Escitalopram Oxalate 10 mg PO DAILY 03/28/17 03/28/17 HYDROcod/ACETAM 5/325 [[place] 5/325] 0.5 tab PO Q8HR PRN 03/28/17 03/28/17 HYDROcod/ACETAM 5/325 [[place] 5/325] 0.5 tab PO TID 03/28/17 03/28/17 Loperamide HCl [Loperamide] 1 tab PO Q6HR PRN 03/28/17 03/28/17 Magnesium Hydroxide [Milk of 30 ml PO DAILY PRN 03/28/17 03/28/17 Magnesia] Meloxicam 7.5 mg PO DAILY PRN 03/28/17 03/28/17 Multivitamin W/Minerals [Theragran 1 tab PO DAILY 03/28/17 03/28/17 M] Omeprazole [PriLOSEC] 20 mg PO DAILY 03/28/17 03/28/17 Polyethylene Glycol 3350 [Miralax] 8.5 gm PO DAILY 03/28/17 03/28/17 guaiFENesin/DEXTROMETHORPHAN 10 ml PO Q6HR PRN 03/28/17 03/28/17 [Robitussin Dm] - Allergies Allergies/Adverse Reactions: Allergies Allergy/AdvReac Type Severity Reaction Status Date / Time Iodinated Contrast- Oral and Allergy Severe Respiratory Verified 02/22/17 03:16 IV Dye [Iodinated Contrast Media - IV Dye] bee pollen [Bee Pollen] Allergy Hives Verified 02/22/17 03:16 Review of Systems - Constitutional Constitutional: reports: Fatigue, Fever (reports felt feverish a couple of days ago, afebrile today and "feels normal again"), Weakness, Weight loss - Eyes Eyes: reports: Blurred vision (continues to worsen), Field loss, Vision loss - Ears, Nose & Throat Ears, Nose & Throat: reports: Other (voice getting very weak, reports choking continues to get worse). denies: Hearing loss - Cardiovascular Cariovascular: denies: Chest pain, Edema, Lightheadedness - Respiratory Respiratory: reports: Cough, Other (SOB with choking episodes). denies: Sputum production - Gastrointestinal Gastrointestinal: reports: Abdominal pain (now resolved, thinking may had flu like symptoms). denies: Constipation, Diarrhea, Nausea - Genitourinary Genitourinary: reports: Incontinence. denies: Dysuria, Frequency - Musculoskeletal Musculoskeletal: reports: Muscle aches, Stiffness, Limited range of motion, Muscle weakness - Integumentary Integumentary: reports: Dryness - Neurological Neurological: reports: Memory problems, Other (mostly wheelchair bound) - Psychiatric Psychiatric: reports: Depression (reports controlled), Anxiety (when choking). denies: Suicidal, Delusions, Hallucinations - Endocrine Endocrine: reports: Intolerance to heat - Hematologic/Lymphatic Hematologic/Lymphatic: reports: Recurrent infections (recurrent UTIs, denies current symptoms) - All Other Systems All Other Systems: reports: Reviewed and negative Physical Examination - Vital Signs Temperature: 98.0 C Pulse Rate: 73 Respiratory Rate: 18 O2 Saturation: 98 (ra) Blood Pressure: 112/62 - Physical Exam General Appearance: positive: Mild distress Eyes Bilateral: positive: Other (eyes). negative: No lid inflammation (tilted gaze) ENT: positive: No signs of dehydration. negative: Oral lesions Neck: positive: Stiff neck Respiratory: positive: Breath sounds nml, Other Cardiovascular: positive: Regular rate & rhythm Abdomen: positive: Nml bowel sounds Skin: positive: Pallor Extremities: positive: No pedal edema Neurologic/Psychiatric: positive: Mood/affect nml (Participated in conversation , speech slow but answers appropriate, revisited frequently information to assure understanding), Slurred/abnml speech Palliative Care - POLST Patient has POLST: Yes POLST Status: DNR, Limited Interventions Pain: Pain unchanged, Location (left shoulder, back), Severity (reports currently controlled no concerns) Drowsiness: Mild (1-3) (does spend a lot of time in bed, fatigue worsening) Nausea: None Anxiety: None Dyspnea: None Anorexia: None Insomnia: Sleeps well Constipation: No, Yes, Opoid induced, Managed Feelings of wellbeing/Perceived Quality of Life: Worsening, Comment (concerned about choking and transition to new setting) Performance Status: Is mostly wheelchair bound, can ambulate with contact assist short distances, dependent for feeding and ADLs - Palliative Care Discussion: Surrogate decision maker [Brad MADDOX" [place] [phone]. Patient on bed, aware discussion to revisit decision and questions about tube feeding. Jj having difficulty finding placement or someone to accept her, this has been of concern for all involved. Does not have appointment with surgeon yet. Revisited goal, if patient still wanted to pursue, patient still enjoys family, outings ( though getting more difficult) perceives quality of life as still worth living. Did ask me about if it is "reversible", counseled at the time she no longer wants to have TF or if she can't make that decision, and QOL is such not acceptable can stop, but would still be able to use PEG for medications which is very important to keep her comfortable at EOL when that time comes. She wanted to know if she could still eat some, counseled on risks/benefits, could still do ice cream etc. but would be less "volume" and risk at this time going in, at some point will not be safe and getting closer to have anything by mouth if choking. She perceives this is getting worse still, and is fearful. Reviewed the process, will have consult with surgeon, then set date, if gets sick or hospitalized may have to happen sooner or urgently. ernst Vines but very good friend and support joined us at the end of visit on speaker phone, concerned about finding a good placement, he lives in [place] and is willing to be advocate for her if she is "place" further afield. Patient at this time, still saying wants to proceed, questions addressed, just waiting on coordination care. Impression and Recommendations - Palliative Care Impression: This is a jose 72 year old woamn with PSP who demonstrates ongoing decline, mostly functional in nature manifrested by increased choking, dypsphagia, difficulting with communication, and weigh loss. Patient's goals include currently moving forward with PEG placement, this will result in need for transition to another level of care. Patient's questions and concerns revisited and addressed, wants to move forward. Recommendations/Counseling Done: 1. Dysphagia. Patient's perception continues to progress as far as difficulty choking, awaiting PEG tube placement, timing is dependent on surgical referral and finding new setting. Counseling of placement of tube and feedings, implications, addressing concerns, and revisiting goals. Patient does want to proceed at this time, perceives QOL such that is not ready to transition EOL care yet. Patient concerns included "reversing" decision if wanted, reiterated need for PG tube for medications. Patient following aspiration precautions, working with team. 2. Left shoulder pain. Patient reports currently controlled. 3. Advanced Care Planning. Having difficulty finding placement for transition, left message for [facility] if any further ideas. Will need to coordinate timing with PEG tube placement. Message left in follow up with sister regarding referral progress. Time Spent: 45 minutes with greater than 50% done in counseling regarding TF and goals of care, anticipatory guidance.
== END 2017-04-04 14:31 | disposition home or self-care (01) ==
LOC: PC 14:30
PROVIDERS: ATTEND Nurse Practitioner Adult Health
DX: Z51.5 Encounter for palliative care (principal); R13.10 Dysphagia, unspecified; M25.512 Pain in left shoulder; G23.1 Progressive supranuclear ophthalmoplegia [Steele-Richardson-Olszewski]; Z99.3 Dependence on wheelchair; Z87.440 Personal history of urinary (tract) infections; Z66 Do not resuscitate; M54.9 Dorsalgia, unspecified

== ENCOUNTER 2017-04-23 13:30 | Outpatient (CLI) | payer MEDICARE ==
--- NOTE | 2017-04-23 17:35 | PROVIDER PROGRESS NOTE ---
Palliative Care Follow Up - Referral Referring Provider: Dr. Ceci Balderrama Time of Visit: [id number] Referral setting: Assisted living (Patient is seen in her home setting which is [facility] assisted living memory care section) Referral Reason: PSP - Information Sources Records Reviewed: Old records reviewed History obtained from: Patient, Caregiver Exam limitations: Clinical condition (patient with some mild STM issues, very difficult speech to understand) - History of Present Illness Update Brief HPI Update: This is a jose 72 year old woman with progressive supranuclear palsy, who continues to decline. She has had increasing difficulty with swallowing and choking not only on her food but secretions as well. She did see Dr. Regalado regarding placement of a feeding tube, she has been vascilating in her messaging to various team members, and was seen in the setting by Speech Therapist Na Bragg. There has been reluctance to move forward as finding placement once she has the PEG tube, will necessitate a change in her living situation. But [facility] is very clear, she is already concerned about being able to meet her needs with increasing symptom burden and as an assisted living not only the PEG tube, but her choking risk is more than they want to take on. She has lost another 5 pounds this week, she has presented with symptoms of a UTI, unfortunately they did NOT get a UA as requested so unclear if treating appropriately, is on tetracycline based on last micro and positive response. She reports her symptoms have resolved. The concern is her hypertonicity in her neck that results in hyperextenstion,leaving her airway open for food to penetrate her larynx. She had choking and coughing reported today both and breakfast and lunch, such that the residents were very upset, she was scared as well. She has a very poor ineffective cough. Even with the PEG tube, she would struggle with her secretions, I had her on her back for part of an exam, and was unable to clear her oral secretions unless turned on side, and needed assist to turn. Please see pallliative care discussion, but patient is "not ready to " and wants to proceed with PEG tube placement at this time, will need transition plan in place before can set appt. Social History - Living Situation Living arrangement: Assisted living (at [facility]) Support System: Mohinder martinez very concerned about patient getting good care, per patient has been exploring placement options [place] [facility] Louie Barragan patient's sister and DPOA, has been supporting her and trying to find placement, has been coming against many barriers, now [facility] until 04/29. Left message to follow up Medications/Allergies - Medications Home Medications: Ambulatory Orders Medication Instructions Recorded Confirmed Aspirin [Aspir 81] 81 mg PO DAILY 06/03/13 04/23/17 Losartan [Cozaar] 25 mg PO DAILY 06/03/13 04/23/17 Metformin HCl [Glumetza] 500 mg PO BID 06/03/13 04/23/17 Pravastatin Sodium 40 mg PO HS 06/03/13 03/28/17 Brimonidine 0.2% Ophth Drops 1 drops BID 11/12/16 04/23/17 [Alphagan P 0.2% Ophth Drops] Dorzolamide 2% Ophth Drops 1 drops BID 11/12/16 04/23/17 [Trusopt 2% Ophth Drops] Latanoprost 0.005% Ophth Drops 1 drops DAILY 11/12/16 04/23/17 [Xalatan Ophth Drops] Acetaminophen 500 mg PO Q6HR PRN 03/28/17 04/23/17 Bisacodyl Supp [Dulcolax Supp] 10 mg PO DAILY PRN 03/28/17 04/23/17 Escitalopram Oxalate 10 mg PO DAILY 03/28/17 04/23/17 HYDROcod/ACETAM 5/325 [[place] 5/325] 0.5 tab PO Q8HR PRN 03/28/17 04/23/17 HYDROcod/ACETAM 5/325 [[place] 5/325] 0.5 tab PO TID 03/28/17 04/23/17 Loperamide HCl [Loperamide] 1 tab PO Q6HR PRN 03/28/17 04/23/17 Magnesium Hydroxide [Milk of 30 ml PO DAILY PRN 03/28/17 04/23/17 Magnesia] Meloxicam 7.5 mg PO DAILY PRN 03/28/17 04/23/17 Multivitamin W/Minerals [Theragran 1 tab PO DAILY 03/28/17 04/23/17 M] Omeprazole [PriLOSEC] 20 mg PO DAILY 03/28/17 04/23/17 Polyethylene Glycol 3350 [Miralax] 8.5 gm PO DAILY 03/28/17 04/23/17 guaiFENesin/DEXTROMETHORPHAN 10 ml PO Q6HR PRN 03/28/17 04/23/17 [Robitussin Dm] Saccharomyces Boulardii [Florastor] 250 mg PO BID 04/23/17 04/23/17 Tetracycline HCl 500 mg PO TID 04/23/17 04/23/17 - Allergies Allergies/Adverse Reactions: Allergies Allergy/AdvReac Type Severity Reaction Status Date / Time Iodinated Contrast- Oral and Allergy Severe Respiratory Verified 02/22/17 03:16 IV Dye [Iodinated Contrast Media - IV Dye] bee pollen [Bee Pollen] Allergy Hives Verified 02/22/17 03:16 Review of Systems - Constitutional Constitutional: reports: Fatigue, Weakness, Weight loss (159.2 04/20 was 164 04/13) - Eyes Eyes: reports: Blurred vision (worsenng), Field loss, Vision loss - Ears, Nose & Throat Ears, Nose & Throat: reports: Hearing loss, Other (less able to speak) - Cardiovascular Cariovascular: denies: Chest pain, Edema - Respiratory Respiratory: reports: Cough, SOB with exertion - Gastrointestinal Gastrointestinal: reports: Constipation (intermittent), Other (has to eat slowing, increase in choking episodes) - Genitourinary Genitourinary: reports: Urgency, Incontinence. denies: Dysuria - Musculoskeletal Musculoskeletal: reports: Stiffness, Limited range of motion, Muscle weakness - Integumentary Integumentary: reports: Dryness - Neurological Neurological: reports: General weakness, Memory problems - Psychiatric Psychiatric: reports: Depression (sadness, denies depression), Anxiety (with choking), Hallucinations (history per staff last week with UTI) - Endocrine Endocrine: reports: Intolerance to heat, Other (blood sugars every other day in good range about 120's) - Hematologic/Lymphatic Hematologic/Lymphatic: reports: Recurrent infections (UTIs, no aspiration pneumonia yet) - All Other Systems All Other Systems: reports: Reviewed and negative Physical Examination - Vital Signs Temperature: 97.8 C Pulse Rate: 71 Respiratory Rate: 18 O2 Saturation: 95 (RA AT REST) Blood Pressure: 112/68 - Physical Exam General Appearance: positive: Alert, Anxious Eyes Bilateral: positive: No lid inflammation, Conjunctivae nml, Other (needs to tip back to see me; watery eyes) ENT: positive: No signs of dehydration Neck: positive: Stiff neck (hyperextended, examined her in bed) Respiratory: positive: Breath sounds nml, Other (patient noted choking episode on secretions; very difficult to get deep enough breath to expel liquid) Cardiovascular: positive: Regular rate & rhythm Abdomen: positive: Non-tender, Nml bowel sounds, No distention Skin: positive: Pallor Extremities: positive: Other (bed mobility with assistance; pivot transfers and one person assist, can walk few steps but difficult with balance/hyperextension and vision) Neurologic/Psychiatric: positive: Oriented x3, Weakness, Slurred/abnml speech Palliative Care - POLST Patient has POLST: Yes POLST Status: DNR, Limited Interventions Pain: Pain unchanged, Location (shoulder/neck reports well controlled on current regimen) Drowsiness: Mild (1-3) Nausea: None Anxiety: Mild (1-3) Dyspnea: Mild (1-3) Anorexia: None Insomnia: Sleeps well Constipation: Yes, Opoid induced, Managed (reports intermittently problem; on AB will not titrate today) Feelings of wellbeing/Perceived Quality of Life: Worsening Performance Status: Patient dependent for all ADLs including feeding and bed posititioning, though can make needs known when person nearby, difficulty summoning someone if in distress - Palliative Care Discussion: Discussed the TF again, as needing to move forward on concerns of facility, staff, and clinical team. Reviewed she has lost 5 pounds over a week. Reviewed her visit with the surgeon, she says she knew alot about the PEG tube as we had been discussing it for several visits now. I reviewed that she has been inconsistent in what she has been telling the different members of the team and her caregivers. She is telling me yes she wants to go ahead, yes she understands she will have to move and yes she knows she is getting worse but she is not ready to still appreciates her current quality of life. She said she was not sure because she wanted the freedom of not having the tube but had not appreciated not having the tube would mean at some point we would be doing comfort measures only. She would still like oral intake as long as possible, but after today does understand that it is hard on the staff when she is choking, and concern for safety if she is not able to clear her airway. Speech therapist was hoping to extend her time with more careful feeding and support. She is scheduled for swallow evaluation tomorrow. Unfortunately the PEG tube will only decrease her risk with eating, she is still going to be at risk because of her oral secretions. She was unable to define what a threshold for no further treatment would be. I do not believe given the complexity of her care, she will be able to stay in her current setting much longer with or without a PEG tube. She is now needing meds crushed, discussed could give them in her PEG tube and would be able to "skip this". For EOL a PEG tube will assist with management of comfort medications too, given her inability to clear oral meds/secretions. Impression and Recommendations - Palliative Care Impression: This is a jose unfortunate 72 year old woman with worsening PSP, with increasing difficulties managing her dysphagia. After much discussion, patient is currently expressing desire to move on with PEG tube feeding unfortunately her sister is not available this week, but will send her message. Recommendations/Counseling Done: 1. Dysphagia secondary to progressive PSP. Patient due for swallow evaluation follow up tomorrow, call to Na SANCHEZ with my concerns and findings today. Agreed PEG tube will be of benefit, but patient will remain at risk for aspiration with secretions. Patient is due to follow up with surgeon next week. Would recommend to coordinate with transition plan and placement, may consider inpatient stay for safety considerations in transition. 2. Chronic pain neck and shoulder. Currently controlled with current regimen, in addition to massage PT/support. 3. Depression, despite multiple changes and decline patient remains remarkedly upbeat, continues to worry about the impact on those around her. She is seeing the Palliative Care Residential Advisor on weekly basis. 4. Advanced care planning. Has POLST, currently satisfied with current quality of life though admits it is declining. Will need transition plan, message left for sister. Spoke with facility RN [facility], will not be able to care for her much longer with or without PEG tube with her increasing care needs. 5. UTI. Positive urine dip and symptoms. Facililty was to obtain cathed UA, does not appear to have happened prior to starting AB based on last micro. Patients symptoms improved. Will need to continue to monitor as recurrent in nature. Time Spent: 60 minutes with greate than 50% done in counseling of patient related to goals of care/PEG tube and anticipatory guidance. Coordination of care with facility staff and ST.
== END 2017-04-23 13:31 | disposition home or self-care (01) ==
LOC: PC 13:30
PROVIDERS: ATTEND Nurse Practitioner Adult Health
DX: Z51.5 Encounter for palliative care (principal); G23.1 Progressive supranuclear ophthalmoplegia [Steele-Richardson-Olszewski]; G89.29 Other chronic pain; M54.2 Cervicalgia; M25.519 Pain in unspecified shoulder; F32.9 Major depressive disorder, single episode, unspecified; N39.0 Urinary tract infection, site not specified; Z87.440 Personal history of urinary (tract) infections; R63.4 Abnormal weight loss; K59.03 Drug induced constipation; T40.2X5A Adverse effect of other opioids, initial encounter; Z66 Do not resuscitate

== ENCOUNTER 2017-04-24 09:00 | Outpatient (CLI) | payer MEDICARE ==
[2017-04-24] MEDS ORDERED: BARIUM SULFATE 148 GM POWDER PO ONE (09:53)
[2017-04-24] MEDS ORDERED: BARIUM SULFATE 454 GM TUBE PO ONE (09:53)
--- NOTE | 2017-04-24 12:56 | XRAY Report ---
MODIFIED BARIUM SWALLOW: 04/24/2017 HISTORY: Dysphagia. FINDINGS/IMPRESSION: Standard modified barium swallow performed under direction of the Speech Pathol ogist. The patient consumed pureed material under fluoroscopic guidance. A videotape was obtained. Fluoro time 42 seconds. Prompt aspiration/penetration documented. The procedure was terminated when this was identified. Reference Speech Pathology report for more detailed procedural information. JOB #: [id number] EXT JOB #:[id number]
== END 2017-04-24 09:01 | disposition home or self-care (01) ==
LOC: DI 09:00
PROVIDERS: ATTEND Surgery
DX: R13.10 Dysphagia, unspecified (principal)
CPT/HCPCS: 74230

== ENCOUNTER 2017-05-01 08:49 | Day surgery (SDC) | payer MEDICARE ==
[2017-05-01 09:46] LABS: CALCIUM 9.9 mg/dL (8.5-10.3); CREATININE 0.8 mg/dL (0.4-1.0); POTASSIUM 4.1 mmol/L (3.5-5.0)
[2017-05-01] MEDS ORDERED: LACTATED RINGERS 1,000 ML IV ONE ×2 (10:00→14:16)
[2017-05-01] MEDS ORDERED: LIDOCAINE 1%-EPI 1:100000 20 ML MDV SUBQ ONE (13:11)
[2017-05-01] MEDS ORDERED: MIDAZOLAM 2 MG/2 ML VIAL IVP ONE (13:45)
[2017-05-01] MEDS ORDERED: fentaNYL 100 MCG/2 ML VIAL IVP ONE (13:45)
[2017-05-01] MEDS: fentaNYL 100 MCG/2 ML VIAL ONE ×2 (14:05→14:25)
--- NOTE | 2017-05-01 14:07 | OPERATIVE REPORT ---
DATE OF SURGERY: 05/01/2017 00:00:00 SURGEON: Evelyn Regalado MD. IMPROVEMENT MANAGER: Ramone Rooney MD. PREOPERATIVE DIAGNOSIS: Supragenicular palsy with dysphagia. POSTOPERATIVE DIAGNOSIS: Supragenicular palsy with dysphagia. NAME OF PROCEDURE: Percutaneous gastrostomy tube placement. INDICATION FOR PROCEDURE: This is a 72-year-old female with progressive supragenicular palsy causing severe dysphagia with inability to take p.o. FINDINGS: After obtaining informed consent, the patient was intubated by Anesthesia. She was prepped and draped in the usual sterile fashion and a time-out was taken according to protocol. The endoscope was introduced into the patient's stomach and the anterior abdominal wall was palpated to identify t he location of the needle insertion site. The area was also transilluminated to ensure safe passage o f the needle. An 18 mL syringe was then inserted and local anesthetic administrated. The introducer n eedle was then placed through the abdominal cavity into the stomach. The guidewire was then inserted through the needle and was grasped with a snare from the endoscope. This was then withdrawn from the patient's mouth. The gastrostomy tube was then connected to the guidewire and was withdrawn back thro ugh the patient's stomach out through the external abdominal wall. The endoscope was reintroduced, an d a PEG tube was positioned ensuring that the flange was abutting the gastric mucosa, but was not not ed to be too tight. The PEG tube was then secured into place at this location. The endoscope was then removed. The patient was extubated and taken to the recovery room in stable condition after tolerate d the procedure well. ESTIMATED BLOOD LOSS: Minimal. COMPLICATIONS: None. JOB #: [id number] EXT JOB #:[id number]
[2017-05-01 16:02] VITALS: BP 132/82
== END 2017-05-01 08:50 | disposition home or self-care (01) ==
LOC: SDS 08:49
PROVIDERS: ATTEND Surgery
PROC: 0DH63UZ Insertion of Feeding Device into Stomach, Percutaneous Approach (ICD-10-PCS; principal; 2017-05-01 10:45)
DX: R13.10 Dysphagia, unspecified (principal); G23.1 Progressive supranuclear ophthalmoplegia [Steele-Richardson-Olszewski]; Z87.891 Personal history of nicotine dependence
CPT/HCPCS: 49440; 80048; J7120

== ENCOUNTER 2017-05-02 15:00 | Outpatient (CLI) | payer MEDICARE ==
--- NOTE | 2017-05-02 22:07 | PROVIDER PROGRESS NOTE ---
Palliative Care Follow Up - Referral Referring Provider: Dr. Kamran Balderrama Time of Visit: 2739-1097 Referral setting: Shelter Facility (New setting for patient, just moved in yesterday; staff are not familiar with her yet) Referral Reason: Progressive Supranuclear Palsey (PSP) - Information Sources Records Reviewed: RN notes reviewed History obtained from: Patient, Caregiver (clinical staff are new to patient) Exam limitations: Clinical condition (patient with very difficult speech to understand as her ability to move air through her vocal cords has diminished) - History of Present Illness Update Brief HPI Update: This is a jose unfortunate 72 year old woman with progressive supranulcear palsy, who has had original symptoms back in 2010. Dhes has had a rapid decline over the last several year that has necessitated move from home to assist living at [facility], then to [facility] and now to [facility]. Related to her disease process she is unable to aim her eyes properly, has increasing visual deficits, so for her to see faces or have conversation needs to tip head back and have objects close. The other significant issue is the loss of balance with walking and/or transferring and will find her falling/leaning back and has had many falls as a result. Finally the most dramatic symptom is the change in ability to swallow, this has reached a point where she coughs and chokes or any oral intake including her secretions. As a result of the severe decline the last week, she had a PEG tube place 05/01. Speech therapy had noted she has an "absent cough" and when she clears her airway it is with a forceful adducting of her vocal chords and this can make a horrendous loud high pitched cough/ sound that was often frightening to staff and other residents, she is very embarrassed with this happens. After weighing benefits and burdens agains transitioning to hospice, patient still feels has quality of life though understands things are changing quickly, and wanted to proceed, it was almost too late as the choking and cough had peaked over this last week. She was having weight loss with decreased intake, and developed a UTI most likely contributed to by her decrease in fluids. Today I find her with much confusion over her transition orders. Surgeon had them wait 24 hours before starting feeding, unfortunately she is choking/ coughing is needing to be NPO, they had tried medications with much difficulty today. Was seen by facility [facility] with recommendations minimal oral challenges, was to work on managing secretions, and confirmed with Na SANCHEZ who saw her last at [facility] on Sunday to NOT have her do any thing oral. Patient has had not intake other than few bites with meds since admission yesterday. Social History - Living Situation Living arrangement: intermediate Support System: Clementina is paid caregiver that provides support/outings for patient. Mohinder is exhusband still very much committed to their friendship, and sister Louie Barragan is DPOA and has been instrumental is helping Katheryn get care needs met and managing her affairs. She has a son who visits some too. Medications/Allergies - Medications Home Medications: Ambulatory Orders Medication Instructions Recorded Confirmed Aspirin [Aspir 81] 81 mg PEG DAILY 06/03/13 05/01/17 Losartan [Cozaar] 25 mg PEG DAILY 06/03/13 05/02/17 Brimonidine 0.2% Ophth Drops 1 drops EACHEYE BID 11/12/16 05/02/17 [Alphagan P 0.2% Ophth Drops] Dorzolamide 2% Ophth Drops 1 drops EACHEYE BID 11/12/16 05/02/17 [Trusopt 2% Ophth Drops] Latanoprost 0.005% Ophth Drops 1 drops EACHEYE DAILY 11/12/16 05/02/17 [Xalatan Ophth Drops] Acetaminophen 500 mg PEG Q6HR PRN 03/28/17 05/01/17 Bisacodyl Supp [Dulcolax Supp] 10 mg [place] DAILY PRN 03/28/17 05/02/17 Escitalopram Oxalate 10 mg PEG DAILY 03/28/17 05/02/17 HYDROcod/ACETAM 5/325 [[place] 5/325] 2.5 mg PEG Q8HR PRN 03/28/17 05/02/17 Loperamide HCl [Loperamide] 10 ml PEG Q6HR PRN 03/28/17 05/02/17 Magnesium Hydroxide [Milk of 30 ml PEG DAILY PRN 03/28/17 05/02/17 Magnesia] Multivitamin W/Minerals [Theragran 10 ml PEG DAILY 03/28/17 05/02/17 M] Omeprazole [PriLOSEC] 20 mg PEG DAILY 03/28/17 05/02/17 Polyethylene Glycol 3350 [Miralax] 8.5 gm PEG DAILY 03/28/17 05/02/17 guaiFENesin/DEXTROMETHORPHAN 10 ml PEG Q6HR PRN 03/28/17 05/02/17 [Robitussin Dm] Saccharomyces Boulardii [Florastor] 250 mg PEG BID 04/23/17 05/02/17 - Allergies Allergies/Adverse Reactions: Allergies Allergy/AdvReac Type Severity Reaction Status Date / Time Iodinated Contrast- Oral and Allergy Severe Respiratory Verified 02/22/17 03:16 IV Dye [Iodinated Contrast Media - IV Dye] bee pollen [Bee Pollen] Allergy Hives Verified 02/22/17 03:16 morphine AdvReac Intermediate Hallucinati Verified 05/01/17 09:59 ons Review of Systems - Constitutional Constitutional: reports: Fatigue, Weakness, Weight loss. denies: Fever, Chills - Eyes Eyes: reports: Blurred vision, Field loss, Vision loss - Ears, Nose & Throat Ears, Nose & Throat: reports: Other (voice weakening) - Cardiovascular Cariovascular: reports: Decr. exercise tolerance. denies: Chest pain - Respiratory Respiratory: reports: Cough (high pitch; exacerbated with attempts for food/ fluid). denies: Wheezing - Gastrointestinal Gastrointestinal: denies: Abdominal pain, Abdominal distention, Nausea, Vomiting - Genitourinary Genitourinary: reports: Incontinence (mild;only if not toileted urgently), Other (recent UTI) - Musculoskeletal Musculoskeletal: reports: Muscle aches, Stiffness, Limited range of motion, Muscle weakness - Integumentary Integumentary: reports: Dryness, Other (new PEG site) - Neurological Neurological: reports: General weakness, Memory problems, Abnormal gait - Psychiatric Psychiatric: reports: Depression (controlled currently; sad at decline), Anxiety (in new setting) - Endocrine Endocrine: reports: Other (patient with diabetes; not restarted on metformin will need to monitor) - Hematologic/Lymphatic Hematologic/Lymphatic: reports: Recurrent infections (UTIs ; so far no aspiration pneumonia but on AB frequently) - All Other Systems All Other Systems: reports: Reviewed and negative Physical Examination - Vital Signs Temperature: 96.8 C Pulse Rate: 83 Respiratory Rate: 18 O2 Saturation: 95 Blood Pressure: 120/72 - Physical Exam General Appearance: positive: No acute distress, Alert Eyes Bilateral: positive: No lid inflammation, Other (tipped back; difficulty focusing) ENT: positive: Dry mucous membranes, Other (lips dry) Neck: positive: Stiff neck (tipped back) Respiratory: positive: Breath sounds nml. negative: Wheezes, Rales, Rhonchi Cardiovascular: positive: Regular rate & rhythm Abdomen: positive: Other (TF just started about 30 mls in; bowel tones sluggish) Skin: positive: Other (exit site without s/s of leakage or infections) Extremities: positive: No pedal edema, Other (up to br) Neurologic/Psychiatric: positive: Oriented x3, Weakness, Slurred/abnml speech Palliative Care - POLST Patient has POLST: Yes POLST Status: DNR, Limited Interventions Pain: Pain unchanged, Location (usually in shoulders; patient reports overall improved; may consider stopping hydrocodone next visit) Drowsiness: Mild (1-3) Nausea: None Anxiety: Mild (1-3) Dyspnea: None Anorexia: Weight loss Insomnia: Sleeps well Constipation: Yes, Opoid induced, Managed Feelings of wellbeing/Perceived Quality of Life: Worsening Performance Status: Previous level of function prior to this episode [patient dependent for all ADLs , has been participating in program to maintain current function]. Current level of functioning [no change except no longer eating so not being fed]. Palliative Care Performance Status [40]. - Palliative Care Discussion: Surrogate decision maker [Louie Barragan]. Patient/Family understanding of the illness [Sister distressed at continued changes for Katheryn; patient understands the terminal nature of her disease; is hoping for longer time; but at time of transition wants to not suffer]. Information preferences [patient with some cognitive changes but understands most explainations if repeated allowed to ask questions]. Most important goals [quality of life]. Patient somewhat overwhelmed in communicating her needs in a new setting as staff at [facility] used to her. Still retaining her sense of humor through our conversation, hoping this will give her more quality of life without the choking as it is very scarey for her, and quantity of more time with her friends and family. Results - Lab Results Lab results reviewed: Yes Lab and Imaging Results: 05/01 sodium 139; k 3.9 Impression and Recommendations - Palliative Care Impression: This is a jose 72 year old woman with PSP, with rapid progression of dysphagia , minimal ability to clear airway, and recent to transition to [facility] to support new PEG tube feeding. Patient treatment plan with confusion on transition, at risk for sequela of dehydration, orders/calls made to address. Recommendations/Counseling Done: 1. Dysphagia secondary to PSP, at critical threshold. Confirmed with Na SANCHEZ who had done barium swallow and visit last Sunday, patient is not to be taking anything orally related to her risk. Goal has been to sustain her nutritionally as best able in her current setting until TF initiated. Ifeoma SANCHEZ here, will follow and continue to evaluate for quality of life issues, but assistance with management of oral secretions and continued program. NPO order written with speech to modify as appropriate. Spoke to Louie about obtaining ALS wheelchair to facility "tilt in space'. Had received meds orally today with coughing and choking. 2. Malnutrition. Unfortantely has not received other than few bites/sips with medications any meaningful intake and did not see commissioning specialist despite request urgently to do so on admit. Call to Brionna for support; given information recommendations made to patient needs 1800 calories, receiving Jevity 1.2 librado/ ml. Orders written to start [address] tube [address] to 10 ml, check residual every 4 hours if less than 50 to add 10 mls, no goal stated. Recommended final goal rate 70 mls/hr. Will need water needs would be calculated at 175 mls ever [address] Rooney seconds grader for Dr. Regalado related situation and need to address fluid status; his recommendations were to be more agressive at this time do a 175 ml gravity water drain; continue with plan to add 10 ml; but hold only for residual greater than 200 ml; and check q 1 hour until less than and restart feeding. Further inst. were given to staff to keep HOB greater than 45 degrees; check residual and patient status if not any coughing or choking can still regurgitate with PEG tube. Ondansetron 8 mg ODT every 8 hours ordered as needed for nausea. Medicaitons to be given through tube. Plan reviewed with clinical staff. Weights weekly and BMP in follow up on Sunday to assist with dietary recommendations. Brionna will see her Sunday next week. 3. Left shoulder pain; patient perceives may be able to stop pain medication; agreed to re-evaluate next visit. 4. Depression, despite changes patient though expresses anxiety with transition feels she is doing okay. Palliative Care Hand I Blocker visited earlier to offer support. Time Spent: 75 minutes in counseling and coordination of care related to TF and transition to new setting.
== END 2017-05-02 15:01 | disposition home or self-care (01) ==
LOC: PC 15:00
PROVIDERS: ATTEND Nurse Practitioner Adult Health
DX: Z51.5 Encounter for palliative care (principal); R13.10 Dysphagia, unspecified; E46 Unspecified protein-calorie malnutrition; M25.512 Pain in left shoulder; F32.9 Major depressive disorder, single episode, unspecified; F41.9 Anxiety disorder, unspecified; E11.9 Type 2 diabetes mellitus without complications; G23.1 Progressive supranuclear ophthalmoplegia [Steele-Richardson-Olszewski]; Z91.81 History of falling; Z93.1 Gastrostomy status; Z87.440 Personal history of urinary (tract) infections; Z79.84 Long term (current) use of oral hypoglycemic drugs; Z66 Do not resuscitate
CPT/HCPCS: 99310

== ENCOUNTER 2017-05-07 21:55 | Outpatient (CLI) | payer MEDICARE ==
[2017-05-07 22:56] LABS: CALCIUM 9.6 mg/dL (8.5-10.3); CREATININE 0.7 mg/dL (0.4-1.0); POTASSIUM 4.1 mmol/L (3.5-5.0)
== END 2017-05-07 21:56 ==
LOC: LAB.R 21:55
DX: N18.3 Chronic kidney disease, stage 3 (moderate) (principal)
CPT/HCPCS: 80048

== ENCOUNTER 2017-05-08 14:00 | Outpatient (CLI) | payer MEDICARE ==
--- NOTE | 2017-05-08 17:20 | PROVIDER PROGRESS NOTE ---
Palliative Care Follow Up - Referral Referring Provider: Dr. Kamran Balderrama Time of Visit: 2920-0090 Referral setting: [facility] Facility Referral Reason: PSP - Information Sources Records Reviewed: RN notes reviewed, Other History obtained from: Patient, Family (sister Louie had "list of concerns" wanted me to follow up from patient) Exam limitations: Clinical condition (patient with more difficulty communicating ; voice very soft; some stm issues noted) - History of Present Illness Update Brief HPI Update: Please see 05/02 note for more extensive HPI. This is a jose 72 year old woman with progressive supranuclear palsy who recently had PEG tube place 05/01 for increased choking, dysphagia, and weight loss. She has been tolerating her new tube feeding, currently at 70 mls hr with total of 1400 ml/24 hours and 175 ml q4 hours flushes water. It was a bit of a complicated transition but things are settling down. Patient appears well hydrated, more alert, and denies depression or anxiety. She is going to be working with rehab team including Ifeoma SANCHEZ to maximize function with the focus on quality of life. She is relieved to not be choking, is managing her oral secretions, and starting to adjust to new setting. Communication has been challenging as her voice is very weak, and looking at creating a communication board to assist. Social History - Living Situation Living arrangement: [facility] (new setting for patient since last Sunday) Support System: Sister Louie Barragan, visits regularly oversees her care and finances; paid cg Clementina has shifts to come provide support and transportation; Mohinder ex comes weekly to visit and provide support Medications/Allergies - Medications Home Medications: Ambulatory Orders Medication Instructions Recorded Confirmed Aspirin [Aspir 81] 81 mg PEG DAILY 06/03/13 05/01/17 Losartan [Cozaar] 25 mg PEG DAILY 06/03/13 05/02/17 Brimonidine 0.2% Ophth Drops 1 drops EACHEYE BID 11/12/16 05/02/17 [Alphagan P 0.2% Ophth Drops] Dorzolamide 2% Ophth Drops 1 drops EACHEYE BID 11/12/16 05/02/17 [Trusopt 2% Ophth Drops] Latanoprost 0.005% Ophth Drops 1 drops EACHEYE DAILY 11/12/16 05/02/17 [Xalatan Ophth Drops] Acetaminophen 500 mg PEG Q6HR PRN 03/28/17 05/01/17 Bisacodyl Supp [Dulcolax Supp] 10 mg IN DAILY PRN 03/28/17 05/02/17 Escitalopram Oxalate 10 mg PEG DAILY 03/28/17 05/02/17 HYDROcod/ACETAM 5/325 [[place] 5/325] 2.5 mg PEG Q8HR PRN 03/28/17 05/02/17 Loperamide HCl [Loperamide] 10 ml PEG Q6HR PRN 03/28/17 05/02/17 Magnesium Hydroxide [Milk of 30 ml PEG DAILY PRN 03/28/17 05/02/17 Magnesia] Multivitamin W/Minerals [Theragran 10 ml PEG DAILY 03/28/17 05/02/17 M] Omeprazole [PriLOSEC] 20 mg PEG DAILY 03/28/17 05/02/17 Polyethylene Glycol 3350 [Miralax] 8.5 gm PEG DAILY 03/28/17 05/02/17 guaiFENesin/DEXTROMETHORPHAN 10 ml PEG Q6HR PRN 03/28/17 05/02/17 [Robitussin Dm] Saccharomyces Boulardii [Florastor] 250 mg PEG BID 04/23/17 05/02/17 - Allergies Allergies/Adverse Reactions: Allergies Allergy/AdvReac Type Severity Reaction Status Date / Time Iodinated Contrast- Oral and Allergy Severe Respiratory Verified 02/22/17 03:16 IV Dye [Iodinated Contrast Media - IV Dye] bee pollen [Bee Pollen] Allergy Hives Verified 02/22/17 03:16 morphine AdvReac Intermediate Hallucinati Verified 05/01/17 09:59 ons Review of Systems - Constitutional Constitutional: reports: Fatigue, Weakness, Weight loss (lost 1.5 pounds this week 157) - Eyes Eyes: reports: Blurred vision (as a result of PSP), Vision loss, Corrective lenses - Ears, Nose & Throat Ears, Nose & Throat: reports: Other (dry mouth). denies: Hearing loss - Cardiovascular Cariovascular: reports: Decr. exercise tolerance. denies: Chest pain - Respiratory Respiratory: reports: Cough (less cough per patient report without having any thing orally; staff report less cough as well this week; managing oral secretions currently), SOB with exertion - Gastrointestinal Gastrointestinal: reports: Constipation (reports only BM once since here; confirmed with staff), Nausea (denies at time of visit; ondansetron given one time on records), Other (Tolerating at 70 ml in hour/bolus water 175 ml q4 hours ; worried about weight gain; reports feeling hungery; did meet with director validation today). denies: Vomiting, Reflux/heartburn - Genitourinary Genitourinary: reports: Incontinence (at times), Other (complains of "itching and burning in groin"; recently on AB). denies: Dysuria - Musculoskeletal Musculoskeletal: reports: Stiffness (flailed back and stiff with PSP) - Integumentary Integumentary: denies: Rash - Neurological Neurological: reports: General weakness, Focal weakness (listing to right in chair), Memory problems, Slurred speech (sister reports staff having difficult time understanding her; voice much more quiet) - Psychiatric Psychiatric: denies: Depression, Anxiety - Endocrine Endocrine: reports: Other (Blood sugars slightly eleveated are not fasting because of TF 130-150 range) - Hematologic/Lymphatic Hematologic/Lymphatic: reports: Recurrent infections (has had frequent UTIs not pneumonia yet) - All Other Systems All Other Systems: reports: Reviewed and negative Physical Examination - Vital Signs Temperature: 97.8 C Pulse Rate: 72 Respiratory Rate: 18 O2 Saturation: 95 Blood Pressure: 102/62 - Physical Exam General Appearance: positive: No acute distress, Alert Eyes Bilateral: positive: Conjunctivae nml ENT: positive: No signs of dehydration Neck: positive: Trachea midline, Stiff neck (tipped back with tone) Respiratory: positive: Breath sounds nml, Other (diminished in bases difficulty taking full breath) Cardiovascular: positive: Regular rate & rhythm Abdomen: positive: Non-tender, Nml bowel sounds, No distention, Other (PEG exit site looks good; exam of vaginal area-thick white secretions; redness and irritation; uncomfortable when manipulating labia for exam) Skin: positive: Pallor. negative: Rash Extremities: positive: Other (shuffle pivot transfer; needing significant cuing ; difficult to get to bend to sit; suppose to have HOB up 45 degrees to prevent aspiration) Neurologic/Psychiatric: positive: Oriented x3, Mood/affect nml, Weakness, Slurred/abnml speech (speech difficult) Palliative Care - POLST Patient has POLST: Yes POLST Status: DNR, Limited Interventions Pain: Pain unchanged, Location (bilateral shoulder pain; reports currently controlled does not want to change regimen; 2.5 mg hydrocodone TID) Drowsiness: Mild (1-3), Comment (reports more fatigue; comfortable laying in bed ; not new behavior did this at [facility]) Nausea: None Anxiety: None Dyspnea: Mild (1-3) (with activity sixto) Insomnia: Sleeps well Constipation: Yes, Opoid induced, Unmanaged, Comment (will titrate bowel program ) Feelings of wellbeing/Perceived Quality of Life: No change (Still perceives life as worth living; worries about her loved ones worrying about her) Performance Status: Dependent for all ADLs, toileting; and cueing for transfers - Palliative Care Discussion: Surrogate decision maker []. Patient/Family understanding of the illness []. Information preferences []. Most important goals []. Patient/Family concerns [] . Family conference []. Results - Lab Results Lab results reviewed: Yes Lab and Imaging Results: NA 137 k4.1 BUN 9.0; Glucose 131; Ca 9.6 Impression and Recommendations - Palliative Care Impression: This is a 72 year old woman with PSP, recently initiated on tube feeding as lost ability to swallow/high risk for aspiration and to meet nutritional needs. This necessitated a move to higher skilled facility of SNF. She is tolerating well at 70 ml, with water bolus 175 ml q 4 hours no nausea or diarrhea. Having more difficulty in new setting in communicating her needs with new caregivers and with progressive loss of voice. Recommendations/Counseling Done: 1. Vaginal candidiasis. Diflucan 100 mg ordered for 3 days. Patient recently prior to surgery had UTI treated with AB. 2. Dysphagia related to PSP. Tolerating current Jevity at 1.2 at 70 mls in hour. Spoke with director validation, Brionna, recommended increase to 80 mls for less " tube time" to accomodate patient's goals to be able to take "field trips" out. Rama SANCHEZ is ordering "see's chocolate lollipops" to allow pleasure tastes. Tube feedings increased to 75 ml for 3 days, then 80 mls, to stop residual checks unless symptomatic. 3. Diabetes Type II. Patient concerned about "elevated" BS reviewed not fasting and within a reasonable range, will monitor and adjust accordingly. 4. Constipation. Increased Miralax form 8.6 to 17 grams daily. Inst. to give 2 senna now, and if no BM tomorrow biscodyl supp per [place] bowel program. 5. Chronic shoulder pain. Discussed given her constipation and less stress on shoulders stopping hydrocodone, patient wants to continue at this time, feels effective regimen, expects to increase activity as time goes on. 6. Dysphonia secondary to PSP. Discussed at length with Rama SANCHEZ about reader board to communicate with staff, both patient and staff get frustrated. Staff and patient in agreement. 7. Generalized weakness. patient notes continue less tolerance of sitting balance/activity. Will be working with rehab to maximize function. Patient very much as goal wants to participate for as long as possible in activities that bring her reece. Reports very much enjoyed outing with Mohinder on ride to [facility]. 8. Advanced care planning, patient continues to express resignation and acceptance of current situation. Denies depression or anxiety currently, worries about the burden on her loved ones and some about her impending decline. Counseling for normalizing her feelings regarding anticipatory grief. Will continue with [facility] Zipper Trimmer Hand, new volunteers to start, encouraged to participate in activities in new setting as has energy too. Time Spent: Time spent 60 minutes with greater than 50% done in counseling on pain/ depression and bowels, coordination of care with facility staff, director validation and sister Louie.
== END 2017-05-08 14:01 | disposition home or self-care (01) ==
LOC: PC 14:00
PROVIDERS: ATTEND Nurse Practitioner Adult Health
DX: Z51.5 Encounter for palliative care (principal); B37.3 Candidiasis of vulva and vagina; E11.9 Type 2 diabetes mellitus without complications; K59.03 Drug induced constipation; T40.2X5A Adverse effect of other opioids, initial encounter; M25.519 Pain in unspecified shoulder; G89.29 Other chronic pain; R49.0 Dysphonia; G23.1 Progressive supranuclear ophthalmoplegia [Steele-Richardson-Olszewski]; Z93.1 Gastrostomy status; Z87.440 Personal history of urinary (tract) infections; Z66 Do not resuscitate; Z79.891 Long term (current) use of opiate analgesic
CPT/HCPCS: 99310

== ENCOUNTER 2017-05-18 20:00 | Outpatient (CLI) | payer MEDICARE ==
[2017-05-18 22:58] LABS: BILIRUBIN,URINE NEGATIVE (NEGATIVE); PH,URINE 6.5 PH (5.0-7.5); UA CHARGE (STRIP ONLY) YES
== END 2017-05-18 20:01 | disposition home or self-care (01) ==
LOC: LAB.R 20:00
PROVIDERS: ATTEND Family Medicine
DX: R82.99 Other abnormal findings in urine (principal)
CPT/HCPCS: 81001; 81003

== ENCOUNTER 2017-05-23 11:15 | Outpatient (CLI) | payer MEDICARE ==
--- NOTE | 2017-05-23 20:26 | PROVIDER PROGRESS NOTE ---
Palliative Care Follow Up - Referral Referring Provider: Dr. Kamran Balderrama Time of Visit: 11:15-12:15 Referral setting: Nursing Home Facility (Patient now at [facility]) Referral Reason: PSP - Information Sources Records Reviewed: RN notes reviewed, Old records reviewed History obtained from: Patient, Family (follow up with sister, Louie) Exam limitations: Clinical condition (Patient able participate in exam; some inconsistency with questions/STM but not confused) - History of Present Illness Update Brief HPI Update: Please see 05/02 note for more extensive HPI. This is a jose 72-year-old woman with progressive supranuclear palsy and had PEG tube placed on 05/01 for symptoms of disease progression that included choking, dysphagia, and ongoing weight loss. She has been transition to continuous feeding at night, with bolus feedings during the day. Unfortunately she is tolerating the bolus feedings poorly, with reflux, gurgling, and abdominal discomfort. I agreed we would decrease the volume, and distribute more evenly through the day. She continues to work with the rehabilitation team to maximize functionality, but she is no longer able to tolerate oral intake. Patient has had 3 falls this week, circumstances were related to getting up to go to the bathroom. Patient can still be continent, and dislikes sweating the bed. Is aware, need to minimize fall risk, which may include changing out her bed. In discussion with her sister, this is the last piece, that represents in the things from her previous normal life. But is hoping we can come up with a compromise. Patient does complain of new left sided shoulder pain from fall. She does have adequate range of motion, no point tenderness, no observable bruising. She does have pain medication available, encouraged to use if needed. Social History - Living Situation Living arrangement: [facility] (Patient transitioned to SNF with implementation of TF; needed higher level of care) Support System: Sister Louie DPOA; oversees care plan Medications/Allergies - Medications Home Medications: Ambulatory Orders Medication Instructions Recorded Confirmed Aspirin [Aspir 81] 81 mg PEG DAILY 06/03/13 05/01/17 Losartan [Cozaar] 25 mg PEG DAILY 06/03/13 05/23/17 Brimonidine 0.2% Ophth Drops 1 drops EACHEYE BID 11/12/16 05/23/17 [Alphagan P 0.2% Ophth Drops] Dorzolamide 2% Ophth Drops 1 drops EACHEYE BID 11/12/16 05/23/17 [Trusopt 2% Ophth Drops] Latanoprost 0.005% Ophth Drops 1 drops EACHEYE DAILY 11/12/16 05/23/17 [Xalatan Ophth Drops] Acetaminophen 500 mg PEG Q6HR PRN 03/28/17 05/23/17 Bisacodyl Supp [Dulcolax Supp] 10 mg [place] DAILY PRN 03/28/17 05/23/17 Escitalopram Oxalate 10 mg PEG DAILY 03/28/17 05/23/17 HYDROcod/ACETAM 5/325 [[place] 5/325] 2.5 mg PEG Q8HR PRN 03/28/17 05/23/17 Loperamide HCl [Loperamide] 10 ml PEG Q6HR PRN 03/28/17 05/23/17 Magnesium Hydroxide [Milk of 30 ml PEG DAILY PRN 03/28/17 05/23/17 Magnesia] Multivitamin W/Minerals [Theragran 10 ml PEG DAILY 03/28/17 05/23/17 M] Omeprazole [PriLOSEC] 20 mg PEG DAILY 03/28/17 05/23/17 Polyethylene Glycol 3350 [Miralax] 17 gm PEG DAILY 03/28/17 05/23/17 guaiFENesin/DEXTROMETHORPHAN 10 ml PEG Q6HR PRN 03/28/17 05/23/17 [Robitussin Dm] Saccharomyces Boulardii [Florastor] 250 mg PEG BID 04/23/17 05/23/17 HYDROcod/ACETAM 5/325 [[place] 5/325] 2.5 mg PEG Q8HR PRN 05/23/17 05/23/17 Metformin HCl 500 mg PEG BID 05/23/17 05/23/17 Ondansetron [Zuplenz] 8 mg PEG Q8HR PRN 05/23/17 05/23/17 - Allergies Allergies/Adverse Reactions: Allergies Allergy/AdvReac Type Severity Reaction Status Date / Time Iodinated Contrast- Oral and Allergy Severe Respiratory Verified 02/22/17 03:16 IV Dye [Iodinated Contrast Media - IV Dye] bee pollen [Bee Pollen] Allergy Hives Verified 02/22/17 03:16 morphine AdvReac Intermediate Hallucinati Verified 05/01/17 09:59 ons Review of Systems - Eyes Eyes: reports: Vision loss - Ears, Nose & Throat Ears, Nose & Throat: reports: Other (dry mouth) - Cardiovascular Cariovascular: denies: Chest pain, Edema - Respiratory Respiratory: reports: Cough (much less; improved without taking in oral) - Gastrointestinal Gastrointestinal: reports: Constipation, Nausea (intermittent ondansetron helpful), Reflux/heartburn (reports "gurgling" and reflux with bolus feedings;) . denies: Vomiting - Genitourinary Genitourinary: reports: Other (patient gets stressed at thought being incontinent; dislikes waiting for help to BR) - Musculoskeletal Musculoskeletal: reports: Muscle pain, Muscle aches, Stiffness (increase pain in left shoulder from recent fall; right elbow pain full with ROM) - Integumentary Integumentary: reports: Dryness - Neurological Neurological: reports: General weakness, Slurred speech (speech a little more clear today) - Psychiatric Psychiatric: reports: Depression (reports doing pretty well despite stressors experiencing with new placement) - Endocrine Endocrine: reports: Other (blood sugar 138;) - Hematologic/Lymphatic Hematologic/Lymphatic: reports: Recurrent infections (Urine was negative; received 3 days of Bactrim; recurrent yeast infection reports symptoms resolved currently) - All Other Systems All Other Systems: reports: Reviewed and negative Physical Examination - Vital Signs Temperature: 97.4 C Pulse Rate: 72 Respiratory Rate: 18 Blood Pressure: 112/72 - Physical Exam General Appearance: positive: No acute distress Eyes Bilateral: positive: Other (difficult to focus;tipped back able to track for conversation) ENT: positive: Dry mucous membranes Neck: positive: Trachea midline, Stiff neck (tipped back) Respiratory: positive: Other (diminished in bases; clear) Cardiovascular: positive: Regular rate & rhythm Abdomen: positive: Nml bowel sounds, Other (PEG exit site w/out s/s/ infection) Skin: positive: Pallor, Other (few bruises on lower extremeties from fall noted) Extremities: positive: Other (unable to straighten right arm without pain; noted contracture; left shoulder with ROM but point tenderness-patient attributes to injury from fall) Neurologic/Psychiatric: positive: Disoriented to time, Slurred/abnml speech ( speech improved today) Comments/Other: Denies any further burning or discomfort in vaginal area Palliative Care - POLST Patient has POLST: Yes POLST Status: DNR, Limited Interventions Pain: Pain worsening, Location (left shoulder new pain, right shoulder arm chronic; somewhat stiff from falls) Drowsiness: Mild (1-3) Nausea: Moderate (4-6) (intermittent related to feeding) Anxiety: None Dyspnea: None Insomnia: Sleeps poorly (distressed with snoring roomate; difficulty at night) Constipation: Yes, Opoid induced, Unmanaged (reports soft but not often enought per her perception) Feelings of wellbeing/Perceived Quality of Life: Worsening (Missing support from [facility] staff; reviewed difficult choice but reviewed how much better doing with cough; choking; better hydrated feeling somewhat better physically; but very sad and lonely) Performance Status: Patient dependent on clinical staff, for assistance with transfers to wheelchair , and dressing. She is having increased difficulty tolerating being up for extended periods of time. She does need to have the head of her bed up greater than 45 for management of her reflux, and though it is posted, I have found her positioned at 30 and flat in bed. - Palliative Care Discussion: Surrogate decision maker-Louie Barragan.Patient retains her jose sense of humor , and discussing the stressors that she continuously faces. She does express feelings of grief and loss, of leaving behind relationships she developed at [facility]. She is continuing to meet, with the commanding officer traffic division weekly, currently her caregiver Clementina, is on vacation. Mohinder, her ex-, continues to visit weekly as well. She does understand the seriousness of her illness, she continues to find her current situation acceptable as far as quality of life. She is aware, but she does have confusion at times, but is easily redirected. Impression and Recommendations - Palliative Care Impression: This is a jose 72-year-old woman with PSP, recently initiated on tube feeding secondary to loss of swallow and high risk for aspiration, and to meet her nutritional needs. Continue to adjust feedings to maximize comfort, and time off to allow other activities. Recently with several falls, attributed to patient's getting up to the bathroom without assistance. She does present with minor injury, and concern for patient's safety. She continues to adjust to her new environment, but expresses feelings of ongoing grief and loss. Recommendations/Counseling Done: 1. Dysphasia related to PSP. Orders left to decrease his bolus feedings to 50% of carton, spreadout 4 times through the day. She is on continuous feedings at 80 mL per hour at night. Wi'll continue to work with the dietitian for maximizing her nutritional status balance seen with impacting her quality of life issues. Concern even with PEG tube of aspiration risk, reiterated with staff and patient the need to have her in her wheelchair for bolus feedings, and her head of bed at 45. Followup with speech therapy, for further recommendations and training. 2. Fall risk. Patient able to identify specifically that she's getting up to the bathroom, and not waiting for assistance. In counseling and review with staff, plan for timed toileting was at staff list. Patient aware needs to cooperate and in agreement. 3. Constipation. Patient going more often, but still perceives constipation. Will schedule senna 8.6 mg every other day per tube and evaluate response. 4. Dysphonia secondary to PSP. Patient does have reader board, established by to assist with communication. Patient needs encouragement to use it. Her speech is much better today, she does fluctuate from day to day. 5. Acute on chronic pain secondary to fall and left shoulder. Patient's baseline regimen for her chronic right shoulder pain has been effective, and hesitant to add to any sedation, encouraged patient to ask for medication for breakthrough pain if increased discomfort. Did followup with therapies regarding patient's new complaint 6. Advanced care planning. Counseling provided for normalizing feelings regarding anticipatory grief and feelings of loss related to her transition. She will continue with weekly commanding officer traffic division visits, volunteer to initiate support as well.. Time Spent: 60 minutes with greater than 50% of this done in counseling regarding tube feeding support, pain management, evaluating fall risks. Coordination of care with rehabilitation therapies and clinical staff new orders were provided.
== END 2017-05-23 11:16 | disposition home or self-care (01) ==
LOC: PC 11:15
PROVIDERS: ATTEND Nurse Practitioner Adult Health
DX: Z51.5 Encounter for palliative care (principal); G23.1 Progressive supranuclear ophthalmoplegia [Steele-Richardson-Olszewski]; K59.03 Drug induced constipation; T40.2X5A Adverse effect of other opioids, initial encounter; R49.0 Dysphonia; S49.92XA Unspecified injury of left shoulder and upper arm, initial encounter; W19.XXXA Unspecified fall, initial encounter; Y92.121 Bathroom in nursing home as the place of occurrence of the external cause; Z93.1 Gastrostomy status; Z91.81 History of falling; Z66 Do not resuscitate
CPT/HCPCS: 99310

== ENCOUNTER 2017-06-08 08:00 | Outpatient (CLI) | payer MEDICARE ==
[2017-06-08 18:55] LABS: CALCIUM 9.4 mg/dL (8.5-10.3); CREATININE 0.7 mg/dL (0.4-1.0); POTASSIUM 4.1 mmol/L (3.5-5.0)
== END 2017-06-08 08:01 | disposition home or self-care (01) ==
LOC: LAB.R 08:00
DX: N18.3 Chronic kidney disease, stage 3 (moderate) (principal)
CPT/HCPCS: 80048

== ENCOUNTER 2017-07-09 08:00 | Outpatient (CLI) | payer MEDICARE ==
[2017-07-09 23:24] LABS: BILIRUBIN,URINE NEGATIVE (NEGATIVE)
[2017-07-09 23:25] LABS: UA w/ MICROSCOPIC CHARGE YES
[2017-07-09 23:31] LABS: UR CULTURE IF IND INDICATED
== END 2017-07-09 23:59 | disposition home or self-care (01) ==
LOC: LAB.R 08:00
DX: R82.90 Unspecified abnormal findings in urine (principal)
CPT/HCPCS: 81001; 81003; 87077; 87086

== ENCOUNTER 2017-07-13 15:15 | Outpatient (CLI) | payer MEDICARE ==
--- NOTE | 2017-07-13 19:56 | CONSULTATION NOTE ---
Palliative Care Follow Up - Referral Referring Provider: Dr. Kamran Balderrama Time of Visit: [id number] Referral setting: Snf Facility Referral Reason: PSP - Information Sources Records reviewed: RN notes reviewed History/Review of Systems obtained from: Patient Exam limitations: Clinical condition (Patient's voice is getting more difficult to understand, and she does have some poor short-term memory recall issuesPatient's voice is getting more difficult to understand, and she does have some poor short-term memory recall issues) - History of Present Illness Update Brief HPI Update: This is a jose 72-year-old woman with progressive supranuclear palsy, she [facility]. She does have a PEG tube placed for disease progression that included choking, dysphasia and ongoing weight loss. She has been tolerating her new feeding schedule every 4 hours, remained weight neutral, and has had no further respiratory distress or worse diagnosis is of pneumonia. She most recently had yet another UTI, I did check her bladder with a bladder scan, she does not have any symptoms currently of urinary retention her total volume was 138 mils. She does perceive herself is getting weaker, her vision worsening, and less tolerance for activity. She does still enjoy her current quality of life, has many friends and family that visit her on a regular basis, and does enjoy activities at the [facility]. I do find patient with concerns relating to end of life, some increased bilateral shoulder pain, but doing fairly well overall. Social History - Living Situation Living arrangement: care home (Patient had previously been at [facility], because of her tube feedings and increased level of care is now a resident at the [facility].) Support System: Her sister Louie oversees her care plan, she visits frequently as well as other family members. She does have a paid caregiver Ruben but does still take her out for manicures, rides, and to supplement her interaction. She is seen weekly by the Palliative Care Restaurant Hospit[employer] Manager. Medications/Allergies - Medications Home Medications: Ambulatory Orders Medication Instructions Recorded Confirmed Aspirin [Aspir 81] 81 mg PEG DAILY 06/03/13 07/15/17 Losartan [Cozaar] 25 mg PEG DAILY 06/03/13 07/15/17 Brimonidine 0.2% Ophth Drops 1 drops EACHEYE BID 11/12/16 07/15/17 [Alphagan P 0.2% Ophth Drops] Dorzolamide 2% Ophth Drops 1 drops EACHEYE BID 11/12/16 07/15/17 [Trusopt 2% Ophth Drops] Latanoprost 0.005% Ophth Drops 1 drops EACHEYE DAILY 11/12/16 07/15/17 [Xalatan Ophth Drops] Acetaminophen 500 mg PEG Q6HR PRN 03/28/17 07/15/17 Bisacodyl Supp [Dulcolax Supp] 10 mg [place] DAILY PRN 03/28/17 07/15/17 Escitalopram Oxalate 10 mg PEG DAILY 03/28/17 07/15/17 HYDROcod/ACETAM 5/325 [[place] 5/325] 2.5 mg PEG Q8HR PRN 03/28/17 07/15/17 Loperamide HCl [Loperamide] 10 ml PEG Q6HR PRN 03/28/17 07/15/17 Magnesium Hydroxide [Milk of 30 ml PEG DAILY PRN 03/28/17 07/15/17 Magnesia] Multivitamin W/Minerals [Theragran 10 ml PEG DAILY 03/28/17 07/15/17 M] Omeprazole [PriLOSEC] 20 mg PEG BID 03/28/17 07/15/17 Polyethylene Glycol 3350 [Miralax] 17 gm PEG DAILY 03/28/17 07/15/17 guaiFENesin/DEXTROMETHORPHAN 10 ml PEG Q6HR PRN 03/28/17 07/15/17 [Robitussin Dm] HYDROcod/ACETAM 5/325 [[place] 5/325] 2.5 mg PEG Q8HR PRN 05/23/17 07/15/17 Metformin HCl 500 mg PEG BID 05/23/17 07/15/17 Ondansetron [Zuplenz] 8 mg PEG Q8HR PRN 05/23/17 07/15/17 Cephalexin [Keflex] 250 mg PEG TID 07/15/17 07/15/17 Senna [Senokot] 8.6 mg PEG DAILY 07/15/17 07/15/17 - Allergies Allergies/Adverse Reactions: Allergies Allergy/AdvReac Type Severity Reaction Status Date / Time Iodinated Contrast- Oral and Allergy Severe Respiratory Verified 02/22/17 03:16 IV Dye [Iodinated Contrast Media - IV Dye] bee pollen [Bee Pollen] Allergy Hives Verified 02/22/17 03:16 morphine AdvReac Intermediate Hallucinati Verified 05/01/17 09:59 ons Review of Systems - Constitutional Constitutional: reports: Fatigue, Weakness (per patient report notes overall increasing weakness, not just with infection, feeling somewhat better on antibiotics), Weight stable (156.5) - Eyes Eyes: reports: Vision loss (reports is worsening) - Ears, Nose & Throat Ears, Nose & Throat: reports: Other (neck permenantly flexed per her report; unable to straighten at all) - Cardiovascular Cardiovascular: denies: Chest pain, Lightheadedness - Respiratory Respiratory: denies: Cough - Gastrointestinal Gastrointestinal: reports: Other (occasionally feels hungery; TF currently every four hours is tolerating this well also does not interfer with night time sleeping as infusion was.). denies: Constipation, Reflux/heartburn - Genitourinary Genitourinary: reports: Incontinence (at times). denies: Dysuria, Frequency - Musculoskeletal Musculoskeletal: reports: Limited range of motion (neck), Muscle weakness, Joint pain (reports increased shoulder pain/neck pain), Other (mostly wheelchair bound though can walk a few steps and stand and pivot; her biggest issue is balance with not being able to focus and postiioning of neck/head) - Integumentary Integumentary: reports: Dryness - Neurological Neurological: reports: Memory problems (admits to [facility]), Slurred speech (more difficult to understand) - Psychiatric Psychiatric: denies: Depression, Anxiety, Hallucinations - Endocrine Endocrine: reports: Diabetes type 2 (blood sugars running good in 90's; could consider decreasing or stopping metformin) - Hematologic/Lymphatic Hematologic/Lymphatic: reports: Recurrent infections (UTIs') - All Other Systems All Other Systems: reports: Reviewed and negative Physical Exam - Vital Signs Temperature: 98.0 C Pulse Rate: 74 Respiratory Rate: 18 O2 Saturation: 97 (ra @ rest) Blood Pressure: 102/64 - Physical Exam General Appearance: positive: No acute distress Eyes Bilateral: positive: No lid inflammation, Conjunctivae nml ENT: positive: Dry mucous membranes (still having oral care issues; reports some improved; no s/s candidiasis today though at high risk now with AB) Neck: positive: Stiff neck (hyperextended back; unable to straighten at all) Cardiovascular: positive: Regular rate & rhythm Respiratory: positive: Breath sounds nml, Diminished in bases Abdomen: positive: Non-tender, Soft, Other (bladder scan done to r/o retention 138 mls) Skin: positive: Pallor Extremities: positive: Other (patient in bed; able to move all extremities though shoulder RoM limited and unable to lift independently overhead) Neurologic/Psychiatric: positive: Oriented x3, Mood/affect nml, Slurred/abnml speech Palliative Care - POLST Patient has POLST: Yes POLST Status: DNR, Limited Interventions Pain: Pain worsening, Location (bilaterally in shoulders; on small doses of hydrocodone/apap 2.5 mg TID;) Tiredness/Fatigue: Moderate (4-6) Drowsiness/Sedation: Mild (1-3) Nausea: None Depression: None Anxiety: Moderate (4-6), Comment (see PC discussion) Dyspnea: None Sleep: Sleep improved (with q4 TF falls back to sleep easily; feels less distressed with schedule) Constipation: Yes, Opoid induced, Managed Feelings of wellbeing/Perceived Quality of Life: Fair, Acceptable Performance Status: Patient dependent for all ADLs, facility bathe surgery twice a week. Paid caregiver comes in and assist with some grooming as well as taking her out. She is "portable" in her wheelchair. She does enjoy interaction and being part of activities even if she cannot participate. - Palliative Care Discussion: When asked patient what she worries about most, she did whisper "passing". I asked her why this had come to her mind, she reports is because of the increased weakness. She does still perceives her quality of life is quite well , but she is somewhat fearful of her end. Things that were of concern for her work pain, not been able to breathe, and distress to her sister. I reassured her currently her weakness could be attributed to her UTI, that yes we do expect her disease to continue, but her weight has remained stable, she has had no pneumonias, and her biggest risk continues to be the sequela of her falls. Also discussed and reassured her at end of life, we have the PEG tube that we would use for comfort medications, would be able to keep her comfortable, we give her medications so she was sleeping and not in distress with her breathing , and could stop the tube feedings at that point in time so her dying process was not prolonged. This seemed to address her current concerns. I also used this opportunity to reinforce her need to call for help because if she did have a fall this would certainly hasten her decline. She is able to tell me she still enjoys visiting, her family, and she is not ready to give it up yet. Impression and Recommendations - Palliative Care Impression: This is a 72-year-old woman who is quite delightful, who does have PSP. She has moderate to high symptom burden, continues to enjoy her current quality of life, she does present with some increased weakness and now recurrent UTI. Her goals are to continue to focus on quality of life and quantity of life as long as she is enjoying her quality. Recommendations/Counseling Done: 1. PSP. Patient does continue with some muscle wasting, despite tube feedings support. She is having increased visual loss, her voice is weaker, her breathlessness more noticeable to her. She currently identifies her quality of life is acceptable, her biggest risk of course is the sequela from a fall. Reviewed this with patient. 2. UTI. Patient been started on Keflex per PCP in response to positive urine. NAILHEAD PUNCHER comes back with appropriate antibiotic. Patient does have history of both vaginal and oral candidiasis, currently with no signs or symptoms but will continue to monitor. 3. Bilateral shoulder pain. Discussed with patient regarding titrating pain medication up, she does want to hold off given her concern for sedation and further weakness. Will revisit again at next visit after she has completed antibiotics. 4. Dysphagia. She has had no remembrance of recent choking episodes. She is managing her oral secretions without difficulty currently. She is remaining weight neutral and new tube feeding schedule is working with improved quality sleep. 5. Advanced care planning. Adjust patient's concerns and feelings regarding her pending decline, counseling and anticipatory guidance provided Time Spent: 45 minutes with greater than 50% of this done in counseling with patient regarding concerns around end of life, anticipatory guidance provided and address depressive feelings. Coordination of care with staff regarding medications and care needs.
== END 2017-07-13 15:16 | disposition home or self-care (01) ==
LOC: PC 15:15
PROVIDERS: ATTEND Nurse Practitioner Adult Health
DX: Z51.5 Encounter for palliative care (principal); G23.1 Progressive supranuclear ophthalmoplegia [Steele-Richardson-Olszewski]; N39.0 Urinary tract infection, site not specified; M25.512 Pain in left shoulder; M25.511 Pain in right shoulder; R13.10 Dysphagia, unspecified; E11.9 Type 2 diabetes mellitus without complications; Z93.1 Gastrostomy status; Z87.440 Personal history of urinary (tract) infections; Z99.3 Dependence on wheelchair; Z79.84 Long term (current) use of oral hypoglycemic drugs; Z66 Do not resuscitate; Z79.891 Long term (current) use of opiate analgesic; Z91.81 History of falling
CPT/HCPCS: 99310

== ENCOUNTER 2017-07-19 13:08 | Outpatient (CLI) | payer MEDICARE ==
[2017-07-19 10:13] LABS: BILIRUBIN,URINE NEGATIVE (NEGATIVE)
[2017-07-19 10:48] LABS: UA w/ MICROSCOPIC CHARGE YES
[2017-07-19 10:50] LABS: UR CULTURE IF IND INDICATED
[2017-07-19 10:51] LABS: WBC,URINE >25 /HPF (0-5)
== END 2017-07-19 13:09 | disposition home or self-care (01) ==
LOC: LAB.R 13:08
DX: R31.29 Other microscopic hematuria (principal)
CPT/HCPCS: 81001; 81003; 87086

== ENCOUNTER 2017-07-19 16:15 | Outpatient (CLI) | payer MEDICARE ==
--- NOTE | 2017-07-19 19:47 | CONSULTATION NOTE ---
Palliative Care Follow Up - Referral Referring Provider: Dr. Kamran Balderrama Time of Visit: [id number] Referral setting: [facility] Referral Reason: Recurrent UTI symptoms - Information Sources Records reviewed: RN notes reviewed History/Review of Systems obtained from: Patient Exam limitations: Clinical condition (patient with difficult communication related to ongoing decline; STM issues at times) - History of Present Illness Update Brief HPI Update: This is a jose 72-year-old woman with progressive supranuclear palsy, she is currently supported at a halfway. She does have a PEG tube placed for tube feedings and nutritional support secondary to symptoms of choking, dyspnea aphasia, and to maintain weight. She currently is on tube feedings every 4 hours, with boluses does appear to be tolerating this. She is recently treated with Keflex for UTI, unfortunately 2 days after she is still having urinary symptoms, and obtained another UA for [employer] though Keflex was on the sensitivity. She does have a history of multiple UTIs, it is not unusual we are treating her at least every 1-2 months. Concern from nursing staff because of her pain and burning as well as dark brown bloody urine this a.m. Did have them obtain another UA still had significant bacteria and occult blood. Patient also known to have recurrent candidiasis so I am here for vaginal exam. On exam patient does have bright red inflamed labia, though no lesions or signs or symptoms of bleeding as the etiology of occult blood in urine. Significant thick white vaginal secretions. Patient still complains of feeling somewhat fluids, though she has been afebrile and her vital signs have been stable. Social History - Living Situation Living arrangement: senior care Support System: Has paid CG checks on timmy Miranda; Sister Louie over sees care Medications/Allergies - Medications Home Medications: Ambulatory Orders Medication Instructions Recorded Confirmed Aspirin [Aspir 81] 81 mg PEG DAILY 06/03/13 07/15/17 Losartan [Cozaar] 25 mg PEG DAILY 06/03/13 07/15/17 Brimonidine 0.2% Ophth Drops 1 drops EACHEYE BID 11/12/16 07/15/17 [Alphagan P 0.2% Ophth Drops] Dorzolamide 2% Ophth Drops 1 drops EACHEYE BID 11/12/16 07/15/17 [Trusopt 2% Ophth Drops] Latanoprost 0.005% Ophth Drops 1 drops EACHEYE DAILY 11/12/16 07/15/17 [Xalatan Ophth Drops] Acetaminophen 500 mg PEG Q6HR PRN 03/28/17 07/15/17 Bisacodyl Supp [Dulcolax Supp] 10 mg NE DAILY PRN 03/28/17 07/15/17 Escitalopram Oxalate 10 mg PEG DAILY 03/28/17 07/15/17 HYDROcod/ACETAM 5/325 [[place] 5/325] 2.5 mg PEG Q8HR PRN 03/28/17 07/15/17 Loperamide HCl [Loperamide] 10 ml PEG Q6HR PRN 03/28/17 07/15/17 Magnesium Hydroxide [Milk of 30 ml PEG DAILY PRN 03/28/17 07/15/17 Magnesia] Multivitamin W/Minerals [Theragran 10 ml PEG DAILY 03/28/17 07/15/17 M] Omeprazole [PriLOSEC] 20 mg PEG BID 03/28/17 07/15/17 Polyethylene Glycol 3350 [Miralax] 17 gm PEG DAILY 03/28/17 07/15/17 guaiFENesin/DEXTROMETHORPHAN 10 ml PEG Q6HR PRN 03/28/17 07/15/17 [Robitussin Dm] HYDROcod/ACETAM 5/325 [[place] 5/325] 2.5 mg PEG Q8HR PRN 05/23/17 07/15/17 Metformin HCl 500 mg PEG BID 05/23/17 07/15/17 Ondansetron [Zuplenz] 8 mg PEG Q8HR PRN 05/23/17 07/15/17 Senna [Senokot] 8.6 mg PEG DAILY 07/15/17 07/15/17 Fluconazole [Diflucan] 100 mg PEG DAILY 07/19/17 07/19/17 Saccharomyces Boulardii [Florastor] 1 cap PEG BID 07/19/17 07/19/17 Sulfamethox/Trimeth 800/160 1 tab PEG BID 07/19/17 07/19/17 [Bactrim Ds] - Allergies Allergies/Adverse Reactions: Allergies Allergy/AdvReac Type Severity Reaction Status Date / Time Iodinated Contrast- Oral and Allergy Severe Respiratory Verified 02/22/17 03:16 IV Dye [Iodinated Contrast Media - IV Dye] bee pollen [Bee Pollen] Allergy Hives Verified 02/22/17 03:16 morphine AdvReac Intermediate Hallucinati Verified 05/01/17 09:59 ons Review of Systems - Constitutional Constitutional: reports: Fatigue, Weight stable - Eyes Eyes: reports: Vision loss - Ears, Nose & Throat Ears, Nose & Throat: reports: Dry mouth - Cardiovascular Cardiovascular: reports: Decr. exercise tolerance - Respiratory Respiratory: reports: Cough (during visit; reports still better and not frequently) - Gastrointestinal Gastrointestinal: reports: Reflux/heartburn, Other (TF every 4 hours now) - Genitourinary Genitourinary: reports: Dysuria, Incontinence - Musculoskeletal Musculoskeletal: reports: Limited range of motion (bilateral shoulder) - Integumentary Integumentary: reports: Dryness - Neurological Neurological: reports: General weakness, Memory problems, Slurred speech - Psychiatric Psychiatric: denies: Depression, Anxiety, Behavior disturbances - Endocrine Endocrine: reports: Diabetes type 2 - Hematologic/Lymphatic Hematologic/Lymphatic: reports: Recurrent infections (Just treated and finished Keflex; treated almost consistently with AB) - All Other Systems All Other Systems: reports: Reviewed and negative Physical Exam - Vital Signs Temperature: 98.3 C Pulse Rate: 64 Respiratory Rate: 18 O2 Saturation: 95 Blood Pressure: 112/64 - Physical Exam General Appearance: positive: No acute distress Eyes Bilateral: positive: No lid inflammation, Conjunctivae nml ENT: positive: Dry mucous membranes Neck: positive: Trachea midline, Stiff neck Cardiovascular: positive: Regular rate & rhythm Respiratory: positive: Diminished in bases (right greater than left; cough with poor expiratory force/choking motion during TF at visit; but trying to talk during this time) Abdomen: positive: Non-tender, Soft, Nml bowel sounds, Other (vaginal exam; thick white cheesy discharge; red inflammed labia folds; bladder scan 40 mls) Skin: positive: Pallor Extremities: positive: No pedal edema Neurologic/Psychiatric: positive: Oriented x3, Mood/affect nml, Slurred/abnml speech Palliative Care - POLST Patient has POLST: Yes POLST Status: DNR, Limited Interventions Pain: Pain unchanged, Location (bilateral shoulder pain), Comment (severe dysuria; burning in vaginal area though denies "itching") Tiredness/Fatigue: Moderate (4-6) Drowsiness/Sedation: Mild (1-3) Results - Lab Results Lab results reviewed: Yes Impression and Recommendations - Palliative Care Impression: This is a 72-year-old woman who has progressive supranuclear palsy, currently now with recalcitrant UTI. She is symptomatic from this, as well as a vaginal candidiasis. UA for C&S obtained, will rotate antibiotics and treat her vaginal candidiasis. Her goals continue to be focus on quality of life. Recommendations/Counseling Done: 1. Recurrent UTI. Did order Bactrim DS 1 tab twice daily for 10 days, she did get a good response for this last time in May she was treated. Her last culture and sensitivity did show this sensitive. Did order Florastor 250 mg BID for 14 days as well, she is at high risk for c. diff given multiple courses of AB 2. Vaginal candidiasis. Diflucan 100 mg 3 days ordered, and weekly 3 weeks, with hopes to manage her recurrent symptoms. Time Spent: 30 minutes with greater than 50% of this done in counseling and coordination of care with staff regarding performing vaginal exam, bladder scan, follow-up with her sister voicemail left request call back if any questions.
== END 2017-07-19 16:16 | disposition home or self-care (01) ==
LOC: PC 16:15
PROVIDERS: ATTEND Nurse Practitioner Adult Health
DX: Z51.5 Encounter for palliative care (principal); N39.0 Urinary tract infection, site not specified; R31.0 Gross hematuria; B37.3 Candidiasis of vulva and vagina; G23.1 Progressive supranuclear ophthalmoplegia [Steele-Richardson-Olszewski]; Z93.1 Gastrostomy status; Z87.440 Personal history of urinary (tract) infections; Z66 Do not resuscitate
CPT/HCPCS: 99309

== ENCOUNTER 2017-08-07 10:00 | Outpatient (CLI) | payer MEDICARE ==
--- NOTE | 2017-08-07 18:16 | CONSULTATION NOTE ---
Palliative Care Follow Up - Referral Referring Provider: Dr. Kamran Balderrama Time of Visit: 10:00-10:45 Referral setting: [facility] Facility Referral Reason: Abdominal Mass/PSP - Information Sources Records reviewed: RN notes reviewed, Previous records reviewed History/Review of Systems obtained from: Patient, Family (spoke with Louie Barragan), Caregiver (staff report) Exam limitations: Clinical condition (Patient with very soft voice, more difficulty understanding) - History of Present Illness Update Brief HPI Update: This is a jose 72-year-old woman with progressive supranuclear nuclear palsy, she is currently supported at a long term. I got contacted because of concern of a right lower abdominal mass, it is soft, nontender and does not seem to be causing her any trouble. With staff were concerned as a head showed up in the last couple weeks. On arrival found the patient with choking episode , patient does not have a cough reflex related to her disease process, she has loud squeaky expiratory /expulsive breathing to clear her secretions. Staff have reported increased choking and coughing over the last couple weeks particularly in conjunction with tube feedings,And more so over the last few days. She does admit to having coffee orally over Thanksgiving. Patient's coughing episode lasted about 50% of the visit. She does get somewhat distressed with this. I talked herSister but her observation is been that she has been choking more on her oral secretions, up to this point in time she had been managed on those without difficulty. Patient on bolus feedings related to patient preference and quality of life. As she does like the continuous feeding at night, would often pull out the tube both purposely and on accident, and found it limiting as far as her ability to sleep and to participate in activities. She does have crackles in her left upper lobe her bases are diminished but clear. She is afebrile and not tachycardic. But given her increased choking more difficulty with tube feedings and concern for aspiration in the fact that it has been more acute the last 2-3 days. Also concerned about that tube possibly migrating given when patient coughs she has a lot of abdominal pressure , this does demonstrates a large orange size mass in the stomach wall. When she is relaxed that soft no solid mass palpated underneath, and nontender to palpation. Suspect she is developed abdominal wall hernia. Did check residual , patient has not had any tube feeding of her several hours no residual in the tube. Given patient's goals of care, she still perceives herself as having quality of life, would want aspiration pneumonia treated her identified. Patient is sent to the ED and response for obtaining chest x-ray, and follow-up on concerns regarding PEG tube migration and abdominal hernia. Social History - Living Situation Living arrangement: [facility] Support System: Sister Louie oversees patient's care, and she is willing to come down and advocate for her the ED. Patient is quite difficult to understand. She is seen some decline as far as patient's ability manage secretions, some decline in functional status, and is I am concerned regarding what may be ahead. Medications/Allergies - Medications Home Medications: Ambulatory Orders Medication Instructions Recorded Confirmed Aspirin [Aspir 81] 81 mg PEG DAILY 06/03/13 07/15/17 Losartan [Cozaar] 25 mg PEG DAILY 06/03/13 07/15/17 Brimonidine 0.2% Ophth Drops 1 drops EACHEYE BID 11/12/16 07/15/17 [Alphagan P 0.2% Ophth Drops] Dorzolamide 2% Ophth Drops 1 drops EACHEYE BID 11/12/16 07/15/17 [Trusopt 2% Ophth Drops] Latanoprost 0.005% Ophth Drops 1 drops EACHEYE DAILY 11/12/16 07/15/17 [Xalatan Ophth Drops] Acetaminophen 500 mg PEG Q6HR PRN 03/28/17 07/15/17 Bisacodyl Supp [Dulcolax Supp] 10 mg [place] DAILY PRN 03/28/17 07/15/17 Escitalopram Oxalate 10 mg PEG DAILY 03/28/17 07/15/17 HYDROcod/ACETAM 5/325 [[place] 5/325] 2.5 mg PEG Q8HR PRN 03/28/17 07/15/17 Loperamide HCl [Loperamide] 10 ml PEG Q6HR PRN 03/28/17 07/15/17 Magnesium Hydroxide [Milk of 30 ml PEG DAILY PRN 03/28/17 07/15/17 Magnesia] Multivitamin W/Minerals [Theragran 10 ml PEG DAILY 03/28/17 07/15/17 M] Polyethylene Glycol 3350 [Miralax] 17 gm PEG DAILY 03/28/17 07/15/17 guaiFENesin/DEXTROMETHORPHAN 10 ml PEG Q6HR PRN 03/28/17 07/15/17 [Robitussin Dm] HYDROcod/ACETAM 5/325 [[place] 5/325] 2.5 mg PEG Q8HR PRN 05/23/17 07/15/17 Metformin HCl 500 mg PEG BID 05/23/17 07/15/17 Ondansetron [Zuplenz] 8 mg PEG Q8HR PRN 05/23/17 07/15/17 Senna [Senokot] 8.6 mg PEG DAILY 07/15/17 07/15/17 raNITIdine [Zantac] 150 mg PEG BID 08/08/17 08/08/17 - Allergies Allergies/Adverse Reactions: Allergies Allergy/AdvReac Type Severity Reaction Status Date / Time Iodinated Contrast- Oral and Allergy Severe Respiratory Verified 08/07/17 12:35 IV Dye [Iodinated Contrast Media - IV Dye] bee pollen [Bee Pollen] Allergy Hives Verified 08/07/17 12:35 morphine AdvReac Intermediate Hallucinati Verified 08/07/17 12:35 ons Review of Systems - Constitutional Constitutional: reports: Weight stable (avg aroung 156) - Eyes Eyes: reports: Vision loss, Corrective lenses, Other (requires many drops secondary to glaucoma/eye changes) - Ears, Nose & Throat Ears, Nose & Throat: reports: Dry mouth - Cardiovascular Cardiovascular: denies: Chest pain - Respiratory Respiratory: reports: Cough, SOB with exertion, Other (struggles with coughing spasms; increased over last several weeks; more acutely over last several days; more prominent with TF than prior) - Gastrointestinal Gastrointestinal: reports: Nausea (one episode last week), Other (Has bolus TF) . denies: Constipation - Genitourinary Genitourinary: reports: Incontinence, Other (recurrent UTI's and vaginal candidiasis) - Musculoskeletal Musculoskeletal: reports: Muscle aches (bilateral shoulder discomfort), Stiffness, Muscle weakness, Assistive devices (can walk with contact assist short distances but tips back), Transfer issues (mostly bed/wheelchair bound) - Integumentary Integumentary: reports: Dryness - Neurological Neurological: reports: General weakness, Other (speech more difficult to understand) - Psychiatric Psychiatric: reports: Anxiety (with increased cough episodes). denies: Depression - Endocrine Endocrine: reports: Diabetes type 2 (BS good range) - Hematologic/Lymphatic Hematologic/Lymphatic: reports: Recurrent infections (utis/no pnemonia) - All Other Systems All Other Systems: reports: Reviewed and negative Physical Exam - Vital Signs Temperature: 97.5 C Pulse Rate: 75 Respiratory Rate: 18 O2 Saturation: 95 Blood Pressure: 122/80 - Physical Exam General Appearance: positive: Moderate distress (coughing episodes) Eyes Bilateral: positive: Other (vision worsening but able to make out face) ENT: positive: Dry mucous membranes. negative: Oral lesions Neck: positive: Trachea midline, Stiff neck (tipped back; unable to straighten) Cardiovascular: positive: Regular rate & rhythm Respiratory: positive: Rales (crackles left upper lung;) Abdomen: positive: Nml bowel sounds, Other (PEG exit site without s/s infection) Skin: positive: Pallor Extremities: positive: No pedal edema, Other (limited ROM in arms) Neurologic/Psychiatric: positive: Oriented x3, Unintelligible speech Palliative Care - POLST Patient has POLST: Yes POLST Status: DNR, Limited Interventions Pain: Pain unchanged, Location (bilateral shoulder pain 2.5 mg hydrocodone/325 mg TID) Tiredness/Fatigue: Mild (1-3) Drowsiness/Sedation: None Nausea: None Depression: None Anxiety: Mild (1-3) Dyspnea: Moderate (4-6) Sleep: Sleeps well Constipation: Yes, Opoid induced, Managed Feelings of wellbeing/Perceived Quality of Life: Good, Acceptable, Comment ( sister perceives worsening status; aware still enjoys family) Performance Status: Patient with significant balance and vision issues, falls frequently if not assisted. Thus comes the problem if she has any urgency tries to get up without assistance. She can walk short distances with contact assist she is dependent for all ADLs. She is on tube feedings.She is mostly wheelchair bound and has been quite a bit of time in bed as she does like her space and bed - Palliative Care Discussion: Discussed with patient my concerns, that she most likely is aspirating. Concern about her frequent coughing and risk for aspiration pneumonia. Patient does not appear acutely ill, but also concerned about tube feeding and migration. We did discuss most likely going to return back to continuous feedings. Patient reports she still enjoys current quality of life, would treat reversible conditions and this was communicated to her sister Louie. After much discussion will go ahead and send her into ED for evaluation as this has been an acute change in the last 48-72 hours. Impression and Recommendations - Palliative Care Impression: This is a 72-year-old woman with progressive supranuclear nuclear palsy, presenting with acute changes in the last 4872 hours with increased choking, gradual increased difficulty with oral secretions, and noting increased choking and coughing with tube feedings which are currently bolus every 4 hours. Patient does present with concern for aspiration pneumonia, given patient goals of care will send in to the ED for workup. Recommendations/Counseling Done: 1. Choking. Noted by both staff and family having increased difficulty with oral secretions, increased cough with tube feedings, and weaker cough effort to expels or moves secretions. Will send in for workup for aspiration pneumonia, given the acute changes. Patient does not appear acutely ill, just with crackles in her upper left lobe.Did discuss before patient left most likely need to transition back to continuous feedings, she understands my concern and is in agreement. She is still wanting to do tube feeding support. Patient when transition to [facility], had ordered suction machine. Will follow up though staff have it available. 2. Abdominal "mass". When patient coughs with tightened abdominal muscles does feel quite firm about the size of an orange. On exam with no coughing soft protrusion nontender to palpation bowel sounds are normal bowels are moving without difficulty patient denies any notable sign or symptoms of distress. I did check residual of tube feeding now noted. PEG tube appears intact will have follow-up at ED. 3. Advanced care planning. JAZMYNE ST in place with DNA are and limited interventions. Patient continues to want to have tube feeding support as well as treatment of reversible conditions. In the context of this will send her in for evaluation, unfortunately will need to send her in with 911 as patient unable to transport in car. Report called into ED physician Addendum; patient returned chest x-ray done with no infiltrates noted. No labs done, according to ER doc with chest x-ray no concern regarding feeding tube no further workup done in the context of this. Orders sent to [facility] for continuous feedings at 50 mils an hour, 150 mL bolus water. Report to dietitichrissy Staton who will do an evaluation with patient about preferences and proposed feeding plan. Will follow up on suction machine. The patient remains at high risk for aspiration pneumonia, sequela from a fall, and further decline related to her neurologic disease. We will continue to support her for best quality of life, patient continues to receive her quality of life is acceptable , at this point in time will continue to treat reversible conditions. Long- term plan would be to transition to hospice at appropriate interval. Time Spent: Time spent 45 minutes with greater than 50% of this done in counseling coordination of care transition to ED as well as follow-up with clinical staff and anticipatory guidance with her sister.
== END 2017-08-07 10:01 | disposition home or self-care (01) ==
LOC: PC 10:00
PROVIDERS: ATTEND Nurse Practitioner Adult Health
DX: Z51.5 Encounter for palliative care (principal); R09.89 Other specified symptoms and signs involving the circulatory and respiratory systems; R19.00 Intra-abdominal and pelvic swelling, mass and lump, unspecified site; G23.1 Progressive supranuclear ophthalmoplegia [Steele-Richardson-Olszewski]; E11.9 Type 2 diabetes mellitus without complications; Z93.1 Gastrostomy status; Z74.01 Bed confinement status; Z79.84 Long term (current) use of oral hypoglycemic drugs; Z66 Do not resuscitate; Z91.81 History of falling
CPT/HCPCS: 99310

== ENCOUNTER 2017-08-07 12:18 | Outpatient (CLI) | payer MEDICARE | END 2017-08-07 12:19 | disposition critical access hospital (66) | LOC: EMS 12:18 | PROVIDERS: ATTEND Surgery | DX: R05 Cough (principal); Z74.01 Bed confinement status | CPT/HCPCS: A0425; A0428; A0429 ==

== ENCOUNTER 2017-08-07 12:23 | Emergency (ER) | payer MEDICARE ==
--- NOTE | 2017-08-07 12:52 | ED Physician Documentation ---
PD HPI DYSPNEA - Stated complaint Stated Complaint: COUGH - Chief complaint Chief Complaint: Resp - History obtained from History obtained from: Family (sister) - History of Present Illness Timing - onset: Other (72yo woman with progressive Supranuclear palsy, She has been tube fed for the last few months. She was brought in from the correction today for concern for aspiration. She recently switched from continuous to bolus feedings and had some coffee via the PEG tube on . 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 Cardiovascular: Valve replacement - Present Medications Home Medications: Ambulatory Orders Medication Instructions Recorded Confirmed Aspirin [Aspir 81] 81 mg PEG DAILY 06/03/13 07/15/17 Losartan [Cozaar] 25 mg PEG DAILY 06/03/13 07/15/17 Brimonidine 0.2% Ophth Drops 1 drops EACHEYE BID 11/12/16 07/15/17 [Alphagan P 0.2% Ophth Drops] Dorzolamide 2% Ophth Drops 1 drops EACHEYE BID 11/12/16 07/15/17 [Trusopt 2% Ophth Drops] Latanoprost 0.005% Ophth Drops 1 drops EACHEYE DAILY 11/12/16 07/15/17 [Xalatan Ophth Drops] Acetaminophen 500 mg PEG Q6HR PRN 03/28/17 07/15/17 Bisacodyl Supp [Dulcolax Supp] 10 mg PA DAILY PRN 03/28/17 07/15/17 Escitalopram Oxalate 10 mg PEG DAILY 03/28/17 07/15/17 HYDROcod/ACETAM 5/325 [[place] 5/325] 2.5 mg PEG Q8HR PRN 03/28/17 07/15/17 Loperamide HCl [Loperamide] 10 ml PEG Q6HR PRN 03/28/17 07/15/17 Magnesium Hydroxide [Milk of 30 ml PEG DAILY PRN 03/28/17 07/15/17 Magnesia] Multivitamin W/Minerals [Theragran 10 ml PEG DAILY 03/28/17 07/15/17 M] Omeprazole [PriLOSEC] 20 mg PEG BID 03/28/17 07/15/17 Polyethylene Glycol 3350 [Miralax] 17 gm PEG DAILY 03/28/17 07/15/17 guaiFENesin/DEXTROMETHORPHAN 10 ml PEG Q6HR PRN 03/28/17 07/15/17 [Robitussin Dm] HYDROcod/ACETAM 5/325 [[place] 5/325] 2.5 mg PEG Q8HR PRN 05/23/17 07/15/17 Metformin HCl 500 mg PEG BID 05/23/17 07/15/17 Ondansetron [Zuplenz] 8 mg PEG Q8HR PRN 05/23/17 07/15/17 Senna [Senokot] 8.6 mg PEG DAILY 07/15/17 07/15/17 Fluconazole [Diflucan] 100 mg PEG DAILY 07/19/17 07/19/17 Saccharomyces Boulardii [Florastor] 1 cap PEG BID 07/19/17 07/19/17 Sulfamethox/Trimeth 800/160 1 tab PEG BID 07/19/17 07/19/17 [Bactrim Ds] - Allergies Allergies/Adverse Reactions: Allergies Allergy/AdvReac Type Severity Reaction Status Date / Time Iodinated Contrast- Oral and Allergy Severe Respiratory Verified 08/07/17 12:35 IV Dye [Iodinated Contrast Media - IV Dye] bee pollen [Bee Pollen] Allergy Hives Verified 08/07/17 12:35 morphine AdvReac Intermediate Hallucinati Verified 08/07/17 12:35 ons - Social History Does the pt smoke?: No Smoking Status: Never smoker Does the pt drink ETOH?: No Does the pt have substance abuse?: No - Immunizations Immunizations are current?: Yes - POLST Patient has POLST: Yes PD ED PE NORMAL - Vitals Vital signs reviewed: Yes - General General: Other (She is alert and pleasant, she follows simple commands and answers simple questions, but does seem confused and very slow to answer questions.) - HEENT HEENT: PERRL - Neck Neck: Supple, no meningeal sign, No bony TTP - Cardiac Cardiac: RRR, No murmur - Respiratory Respiratory: No respiratory distress, Other (mild crackles L side) - Abdomen Abdomen: Non tender - Extremities Extremities: No edema, No calf tenderness / cord Results - Vitals Vitals: Vital Signs - 24 hr 08/07/17 08/07/17 12:31 13:26 Temperature 36.5 C 36.6 C Heart Rate 73 66 Respiratory 16 15 Rate Blood Pressure 142/96 H 136/77 H O2 Saturation 98 96 Oxygen O2 Source Room air - Rads (name of study) 1v chest Radiology: EMP read contemporaneously (NAD) PD MEDICAL DECISION MAKING - ED course ED course: 72-year-old woman with progressive supranuclear palsy sent in from correction for concern for aspiration, her chest x-ray is clear and she is breathing comfortably. Case discussed by phone with Debra Fox who will touch base and may adjust her feedings back to a continuous feed from bolus. She also has specific concerns about potentially a lower abdominal hernia, this was examined prior to discharge, she was nontender and I did not appreciate really any mass. Departure - Departure Disposition: 01 Home, Self Care Clinical Impression: Aspiration into airway Qualifiers: Encounter type: initial encounter Qualified Code(s): T17.908A - Unspecified foreign body in respiratory tract, part unspecified causing other injury, initial encounter Clinical Impression: (Ruled Out): Pneumonia Condition: Good Record reviewed to determine appropriate education?: Yes Comments: Debra will touch base with you and may adjust her feeding. Return for shortness of breath or fevers. Your blood pressure was elevated today on check into the emergency department. This does not mean that you have hypertension, it is a common phenomenon to come to the emergency department and have elevated blood pressure. I recommend that you see your primary care physician within the week to have it rechecked when you are feeling better.
--- NOTE | 2017-08-07 13:01 | XRAY Preliminary Report ---
Exam: XR CHEST 1 VIEW IMPRESSION: No plain radiographic evidence of aspiration. [facility] SITE ID: [id number]
--- NOTE | 2017-08-07 13:03 | XRAY Report ---
EXAM: CHEST RADIOGRAPHY EXAM DATE: 08/07/2017 12:45 PM. CLINICAL HISTORY: Aspiration. COMPARISON: None. TECHNIQUE: 1 view. FINDINGS: Lungs/Pleura: No focal consolidation. No thorax or large pleural effusion. Mediastinum: Upper normal size of the cardiac silhouette. Cardiac valve prosthesis noted. Other: Percutaneous feeding tube noted. IMPRESSION: No plain radiographic evidence of aspiration. [facility] Referring Provider Line: [phone] SITE ID: [id number]
[2017-08-07 13:26] VITALS: BP 136/77
== END 2017-08-07 13:49 | disposition home or self-care (01) ==
LOC: EDUNIT# → ED 12:23
DX: T17.908A Unspecified foreign body in respiratory tract, part unspecified causing other injury, initial encounter (principal); X58.XXXA Exposure to other specified factors, initial encounter; G23.1 Progressive supranuclear ophthalmoplegia [Steele-Richardson-Olszewski]; I10 Essential (primary) hypertension; E78.00 Pure hypercholesterolemia, unspecified; E11.8 Type 2 diabetes mellitus with unspecified complications; Z79.84 Long term (current) use of oral hypoglycemic drugs; Z95.2 Presence of prosthetic heart valve; Z79.82 Long term (current) use of aspirin; Z93.1 Gastrostomy status
CPT/HCPCS: 71010; 99283; 99284

== ENCOUNTER 2017-08-07 13:51 | Outpatient (CLI) | payer MEDICARE | END 2017-08-07 13:52 | LOC: EMS 13:51 | PROVIDERS: ATTEND Surgery | DX: Z74.01 Bed confinement status (principal) ==

== ENCOUNTER 2017-08-23 16:15 | Outpatient (CLI) | payer MEDICARE ==
--- NOTE | 2017-08-23 17:47 | CONSULTATION NOTE ---
Palliative Care Follow Up - Referral Referring Provider: Dr. Traylor Time of Visit: [id number] Referral setting: Shelter Facility Referral Reason: PSP/Follow up pneumonia - Information Sources Records reviewed: Previous records reviewed History/Review of Systems obtained from: Patient Exam limitations: Clinical condition (Patient with progressive disease, more difficult to understand. Does appear alert and oriented today answers appropriate.) - History of Present Illness Update Brief HPI Update: This is a jose 72-year-old woman with progressive supranuclear palsy, she is currently being supported at a care home. She was seen by her primary care provider Dr. Balderrama over the weekend, she was having increased lethargy and moist cough. A chest x-ray did show a left lower lobe infiltrate. She had aspirated previously a couple weeks before, but on ED exam at that point in time was not showing symptomatic. Today she reports the mucus is better, she is tolerating her continuous tube feedings at 80 mils an hour, with the addition of the omeprazole and change from the bolus feedings it does appear she is doing better. I changes include though increased difficulty with communication, intermittent confusion though she has reoriented, and now she is mostly incontinent. She also has some upper extremity contractures, she reports her bilateral shoulder pain is intermittent but controlled on her low dose of hydrocodone. She continues to perceive though with all her limitations , that her quality of life is still acceptable. She does not present with any existential concerns or distress today Social History - Living Situation Living arrangement: detention Support System: Sister Louie oversees patient's care, she does have many friends and family that do provide support. She is a paid caregiver Ruben it does take her out of the facility still though I suspect this is getting more difficult. She had gone out today and is feeling quite exhausted. Medications/Allergies - Medications Home Medications: Ambulatory Orders Medication Instructions Recorded Confirmed Aspirin [Aspir 81] 81 mg PEG DAILY 06/03/13 08/23/17 Losartan [Cozaar] 25 mg PEG DAILY 06/03/13 08/23/17 Brimonidine 0.2% Ophth Drops 1 drops EACHEYE BID 11/12/16 08/23/17 [Alphagan P 0.2% Ophth Drops] Dorzolamide 2% Ophth Drops 1 drops EACHEYE BID 11/12/16 08/23/17 [Trusopt 2% Ophth Drops] Latanoprost 0.005% Ophth Drops 1 drops EACHEYE DAILY 11/12/16 08/23/17 [Xalatan Ophth Drops] Acetaminophen 500 mg PEG Q6HR PRN 03/28/17 08/23/17 Bisacodyl Supp [Dulcolax Supp] 10 mg [place] DAILY PRN 03/28/17 08/23/17 Escitalopram Oxalate 10 mg PEG DAILY 03/28/17 08/23/17 HYDROcod/ACETAM 5/325 [[place] 5/325] 2.5 mg PEG Q8HR PRN 03/28/17 08/23/17 Loperamide HCl [Loperamide] 10 ml PEG Q6HR PRN 03/28/17 08/23/17 Multivitamin W/Minerals [Theragran 10 ml PEG DAILY 03/28/17 08/23/17 M] Polyethylene Glycol 3350 [Miralax] 17 gm PEG DAILY 03/28/17 08/23/17 guaiFENesin/DEXTROMETHORPHAN 10 ml PEG Q6HR PRN 03/28/17 08/23/17 [Robitussin Dm] HYDROcod/ACETAM 5/325 [[place] 5/325] 2.5 mg PEG Q8HR PRN 05/23/17 08/23/17 Metformin HCl 500 mg PEG BID 05/23/17 08/23/17 Ondansetron [Zuplenz] 8 mg PEG Q8HR PRN 05/23/17 08/23/17 Senna [Senokot] 8.6 mg PEG DAILY 07/15/17 08/23/17 Levofloxacin [Levaquin] 500 mg PEG DAILY 08/23/17 08/23/17 Omeprazole Magnesium [Prilosec] 20 mg PEG BID 08/23/17 08/23/17 - Allergies Allergies/Adverse Reactions: Allergies Allergy/AdvReac Type Severity Reaction Status Date / Time Iodinated Contrast- Oral and Allergy Severe Respiratory Verified 08/07/17 12:35 IV Dye [Iodinated Contrast Media - IV Dye] bee pollen [Bee Pollen] Allergy Hives Verified 08/07/17 12:35 morphine AdvReac Intermediate Hallucinati Verified 08/07/17 12:35 ons Review of Systems - Constitutional Constitutional: reports: Weight loss (153.2 08/12 ------07/18 154.9) - Eyes Eyes: reports: Vision loss, Corrective lenses - Ears, Nose & Throat Ears, Nose & Throat: reports: Dry mouth - Respiratory Respiratory: reports: Cough (both staff and patient feels improved), Sputum production (reports "mucous" less) - Genitourinary Genitourinary: reports: Incontinence (consistently incontinent now) - Musculoskeletal Musculoskeletal: reports: Stiffness (upper arms noted increase with contractures ), Limited range of motion, Assistive devices (still able to ambulate with contact assist; try to daily) - Integumentary Integumentary: reports: Dryness - Neurological Neurological: reports: General weakness, Memory problems, Slurred speech (voice soft, more difficult to understand) - Psychiatric Psychiatric: denies: Depression, Anxiety, Suicidal - Endocrine Endocrine: reports: Diabetes type 2 (reviewed 3x week BS good range) - Hematologic/Lymphatic Hematologic/Lymphatic: reports: Recurrent infections (first pneumonia; previous had been UTIs) - All Other Systems All Other Systems: reports: Reviewed and negative Physical Exam - Vital Signs Temperature: 98.0 C Pulse Rate: 92 Respiratory Rate: 18 O2 Saturation: 95 (ra @ rest) Blood Pressure: 104/78 - Physical Exam General Appearance: positive: Alert Eyes Bilateral: positive: Conjunctivae nml ENT: positive: Dry mucous membranes Neck: positive: Trachea midline, Stiff neck (tipped back; unable to move head forward) Cardiovascular: positive: Regular rate & rhythm Respiratory: positive: Diminished in bases, Other (no cough during visit). negative: Wheezes, Rales, Rhonchi Abdomen: positive: Non-tender, Soft, Nml bowel sounds, Other (patient reports some tenderness in vaginal area; no s/s of candidiasis observed; patient denies pruritis; now incontinent) Skin: positive: Pallor. negative: Pressure wound Extremities: positive: No pedal edema. negative: Full ROM (limited rom upper extremities; lower okay) Neurologic/Psychiatric: positive: Mood/affect nml, Disoriented to time, Slurred/ abnml speech Palliative Care - POLST Patient has POLST: Yes POLST Status: DNR, Limited Interventions Pain: Pain unchanged, Location (bilataral shoulder pain; right greater than left ; on scheduled meds) Tiredness/Fatigue: Moderate (4-6) Drowsiness/Sedation: None Nausea: None Depression: None Anxiety: None Dyspnea: Mild (1-3) Sleep: Variable sleep pattern Constipation: No, Opoid induced, Managed Feelings of wellbeing/Perceived Quality of Life: Fair, Acceptable, No change Performance Status: Patient is dependent on staff for all ADLs, she is able to still walk a few steps, and transfer to the wheelchair. She does enjoy outings though they are more fatiguing. - Palliative Care Discussion: Patient looking forward to [place], increase activity and visiting with people. She does express loss at the ability to communicate with Mohinder, he is hard of hearing and her voice is getting weaker. She still perceives her quality of life is acceptable, she denies any worries or distress today. She reports her depression is well controlled. She still has a very sweet sense of humor, and still finds reece in the day-to-day happenings. Impression and Recommendations - Palliative Care Impression: This is a 72-year-old woman with progressive supranuclear palsy, recovering from left lower lobe pneumonia. Secretions are improved, she still has some residual fatigue, but feels better overall. Her care plan has been mitigated to decrease her aspiration risk, she is tolerating the tube feedings at 80 mils an hour, her heartburn is better, and still continues to enjoy her current quality of life. Her goals are to continue with supportive care, treat infections, as long as this is acceptable to her, her sister Louie who oversees her care supports her in this goal as well Recommendations/Counseling Done: 1. Pneumonia. Patient responded to her current dose of Levaquin last day of antibiotics is tomorrow. No further follow-up or change required at this point in time. 2. Dysphagia.Patient on PEG tube feedings, change in care plan to mitigate aspiration risk. Patient is tolerating 80 mils an hour along with water flushes. She has had a couple pound weight loss, I am not concerned at this point in time. We will continue current care plan 3. GERD. She is doing better on the omeprazole, her family has decided to pay as it is not on formulary. She is tolerating this without any difficulty. 4. Incontinence. This is most likely as a result of progressive disease. This is somewhat distressing to her, she is at high risk for vaginal candidiasis given her recent antibiotics. Vaginal exam does not show any signs of redness or irritation though she does report discomfort. Will have them start applying barrier cream, to protect and increase her comfort. 5. Depression. Patient denies any symptoms of depressive mood, she is looking forward to [place], she does not present with any symptoms of existential distress. She is being supported by the palliative care corporate real estate specialist. She remains quite clear and her goals as far as what is acceptable quality of life. Time Spent: Minutes with greater than 50% of this done in counseling regarding depression, follow-up on response to antibiotics, and anticipatory guidance. Did leave a message and report for her sister Louie.
== END 2017-08-23 16:16 | disposition home or self-care (01) ==
LOC: PC 16:15
PROVIDERS: ATTEND Nurse Practitioner Adult Health
DX: Z51.5 Encounter for palliative care (principal); J18.9 Pneumonia, unspecified organism; G23.1 Progressive supranuclear ophthalmoplegia [Steele-Richardson-Olszewski]; K21.9 Gastro-esophageal reflux disease without esophagitis; R32 Unspecified urinary incontinence; F32.9 Major depressive disorder, single episode, unspecified; E11.9 Type 2 diabetes mellitus without complications; Z79.891 Long term (current) use of opiate analgesic; Z79.84 Long term (current) use of oral hypoglycemic drugs; Z66 Do not resuscitate; Z93.1 Gastrostomy status
CPT/HCPCS: 99309

== ENCOUNTER 2017-09-24 20:53 | Outpatient (CLI) | payer MEDICARE ==
--- NOTE | 2017-09-25 08:38 | CONSULTATION NOTE ---
Palliative Care Follow Up - Referral Referring Provider: Dr. Ceci Balderrama Time of Visit: September 24, 2017 [id number] Referral setting: [facility] Facility Referral Reason: PSP - Information Sources Records reviewed: RN notes reviewed, Previous records reviewed History/Review of Systems obtained from: Patient, Family (sister Louie), Caregiver (clinical staff) Exam limitations: Clinical condition (patient with some STM issues; confused at times on date/time/events) - History of Present Illness Update Brief HPI Update: Is a jose 72-year-old woman with progressive supranuclear palsy, she is [facility] a [facility] secondary to the need for tube feedings. She most recently was treated for pneumonia in August, she has since recovered from this. We have been modifying her tube feeding to better provide support for her quality of life. Dietitian is working with me at this point in time she is off from 10 to 4 PM. She has had some weight loss, I suspect this is related to her increase activity during the day as well as the transition time. Her primary care provider has continued to decrease pill burden as well. Patient does present today with ongoing lower blood pressures. Will go ahead and decrease her blood pressure medication. She does have bilateral shoulder plan pain as well as increasing contractures of her upper extremities. She is having more hyperextension of her neck, PT /OT have been ordered as far as a wheelchair adjustment and sitting. Patient continues to accept her current quality of life, finds it acceptable, and continues to find things to enjoy on a daily basis. Social History - Living Situation Living arrangement: [facility] (Patient sister Louie oversees care, she does visit at least 2 or 3 times a week. She does have a paid caregiver continues to take her out to get her nails, she is still able to tolerate this so this is getting more difficult and more tiring. She did enjoy her [place] holiday, she does seem quite content and settled in to her current situation.) Medications/Allergies - Medications Home Medications: Ambulatory Orders Medication Instructions Recorded Confirmed Losartan [Cozaar] 12.5 mg PEG DAILY 06/03/13 09/25/17 Brimonidine 0.2% Ophth Drops 1 drops EACHEYE BID 11/12/16 09/25/17 [Alphagan P 0.2% Ophth Drops] Dorzolamide 2% Ophth Drops 1 drops EACHEYE BID 11/12/16 09/25/17 [Trusopt 2% Ophth Drops] Latanoprost 0.005% Ophth Drops 1 drops EACHEYE DAILY 11/12/16 09/25/17 [Xalatan Ophth Drops] Acetaminophen 500 mg PEG Q6HR PRN 03/28/17 09/25/17 Bisacodyl Supp [Dulcolax Supp] 10 mg [place] DAILY PRN 03/28/17 09/25/17 Escitalopram Oxalate 10 mg PEG DAILY 03/28/17 09/25/17 HYDROcod/ACETAM 5/325 [[place] 5/325] 2.5 mg PEG Q8HR PRN 03/28/17 09/25/17 Loperamide HCl [Loperamide] 10 ml PEG Q6HR PRN 03/28/17 09/25/17 Multivitamin W/Minerals [Theragran 10 ml PEG DAILY 03/28/17 09/25/17 M] Polyethylene Glycol 3350 [Miralax] 17 gm PEG DAILY 03/28/17 09/25/17 guaiFENesin/DEXTROMETHORPHAN 10 ml PEG Q6HR PRN 03/28/17 09/25/17 [Robitussin Dm] HYDROcod/ACETAM 5/325 [[place] 5/325] 2.5 mg PEG Q8HR PRN 05/23/17 09/25/17 Ondansetron [Zuplenz] 8 mg PEG Q8HR PRN 05/23/17 09/25/17 Senna [Senokot] 8.6 mg PEG .EVERY OTHER DAY 07/15/17 09/25/17 Omeprazole Magnesium [Prilosec] 20 mg PEG BID 08/23/17 09/25/17 - Allergies Allergies/Adverse Reactions: Allergies Allergy/AdvReac Type Severity Reaction Status Date / Time Iodinated Contrast- Oral and Allergy Severe Respiratory Verified 08/07/17 12:35 IV Dye [Iodinated Contrast Media - IV Dye] bee pollen [Bee Pollen] Allergy Hives Verified 08/07/17 12:35 morphine AdvReac Intermediate Hallucinati Verified 08/07/17 12:35 ons Review of Systems - Constitutional Constitutional: reports: Weight loss (147.4 about 7 pounds over last few weeks;) - Eyes Eyes: reports: Vision loss (reports worsening;) - Ears, Nose & Throat Ears, Nose & Throat: reports: Dry mouth - Respiratory Respiratory: reports: Cough (less; able to manage secretions), SOB with exertion. denies: SOB at rest - Gastrointestinal Gastrointestinal: denies: Constipation, Nausea, Reflux/heartburn - Genitourinary Genitourinary: reports: Dysuria (occasionally), Incontinence - Musculoskeletal Musculoskeletal: reports: Stiffness, Limited range of motion, Joint pain ( bilateral shoulder pain. left worsening, reports mostly with transfers only; no pain at time of exam), Other (still able to ambulate wtih assistance/guidance short distances) - Integumentary Integumentary: reports: Dryness - Neurological Neurological: reports: General weakness, Memory problems - Psychiatric Psychiatric: reports: Hallucinations (confirmed by sister as well; has been a few months; denies being frightened; is aware she has them; unable to recall content; sister reports usually dogs/people) - Endocrine Endocrine: reports: Diabetes type 2 (in good range; discontinued metformin by PCP) - Hematologic/Lymphatic Hematologic/Lymphatic: reports: Recurrent infections (recently treated for pneumonia; no further symptoms) - All Other Systems All Other Systems: reports: Reviewed and negative Physical Exam - Vital Signs Temperature: 97.7 C Pulse Rate: 63 Respiratory Rate: 18 O2 Saturation: 98 (ra @ rest) Blood Pressure: 92/62 - Physical Exam General Appearance: positive: No acute distress Eyes Bilateral: positive: Other (watery but clear) ENT: positive: No signs of dehydration (strong odor with breath) Neck: positive: Stiff neck (hyperextended back; unable to move forward;) Cardiovascular: positive: Regular rate & rhythm Respiratory: positive: Diminished in bases. negative: Wheezes, Rales, Rhonchi Abdomen: positive: Non-tender, Soft, Nml bowel sounds Skin: positive: Pallor, Dryness Extremities: positive: No pedal edema Neurologic/Psychiatric: positive: Mood/affect nml, Disoriented to time, Slurred/ abnml speech (voice remains very quiet; able to discern about 70%) Palliative Care - POLST Patient has POLST: Yes POLST Status: DNR, Selective Treatment Pain: Pain worsening, Location (bilateral shoulder pain; only receving 2.5 mg hydrocodone/apap TID; does not want it increased) Tiredness/Fatigue: Moderate (4-6) Drowsiness/Sedation: Mild (1-3) Nausea: None Depression: None Anxiety: None Dyspnea: Mild (1-3) Constipation: No, Opoid induced, Managed Feelings of wellbeing/Perceived Quality of Life: Fair, Acceptable, No change Performance Status: Patient remains mostly wheelchair bound, she is dependent for all ADLs. We have arranged her tube feedings to be able to be more participatory in the day with it off 3:50 PM. She does like the facilities activities. - Palliative Care Discussion: Patient reports she does not have any worries or concerns, she does report that she is having daily hallucinations though she does not often remember what they are about. She reports it has been for several weeks now. She has a jose new posterior with her great granddaughters, she really enjoyed the holidays. Sclerae still comes to visit weekly, as well as other family members and friends. She continues to participate fully in life, but finds it still worth living and acceptable even at her diminished level. She still finds humor, and has a very infectious laugh. Did check in with him sister, reports changes that she has seen has been the increase in hallucinations and more difficult understanding her. Only been a few frightening ones where she is seeing someone outside. She does appear to understand that she is confused at times. She often will describe her rooms not ready, or her other room. Louie has just learned to go along with that, and has encouraged others as well. She continues to support patient and oversee all her care needs, she does visit on a regular basis to monitor care receiving Impression and Recommendations - Palliative Care Impression: This is a jose 72-year-old woman with progressive supranuclear nuclear palsy, is currently living at a [facility]. She has had a recent infection of pneumonia, this is since resolved. Her secretions continue to be improved, she is having no further GERD symptoms, and is feeling better overall. She does present today with ongoing hypotension, have continued to decrease her pill burden along with the PCP. Her goals are continued with supportive care, treat infections as long as this is acceptable quality of life for her, and her sister Louie who oversees her care supports his goals as well. Recommendations/Counseling Done: 1. Weight loss. Patient is more active during this transition time I suspect has received less calories. She does not have a stable tube feeding Which accommodates her schedule to be able to participate in facility activities. Goal at this point in time is just no further weight loss. 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 She is no longer having any further GERD symptoms and is tolerating her feeding quite well. 2. Bilateral shoulder pain. She is on a very low dose of hydrocodone, she is not interested in increasing the dosing at this point in time. I will see if therapy who is going to be evaluating for wheelchair has any further suggestions or modifications that might increase her comfort, it does appear this is most painful with transfers and staff handling. 3. Dysphagia. Patient has not had any further reflux or choking with continuous and fusion of her feeding. Her GERD is currently controlled. She is getting water flushes and remaining hydrated. 4. Depression. Patient denies any signs or symptoms of depressive mood, she is being supported by the palliative care solar energy system installer and presents with no concerns at this point in time by myself, sister, or staff. 5. Hypertension. Will go ahead and decrease her losartan to 12.5 mg daily continue to evaluate over the next few weeks and discontinue if not needed. 6. Advanced care planning. JAZMYNE ST in place, patient has somewhat plateaued though with some soft or signs of decline including weight loss, increased hallucinations, some increased contractures, and increased weakness particularly in her upper extremities. Patient remains quite hopeful that with focus on quality of life issues she will continue to find something to look forward to enjoy an every day Time Spent: Time spent 45 minutes with greater than 50% of this done in counseling coordination of care follow-up with staff as well as sister and anticipatory guidance provided
== END 2017-09-24 20:54 | disposition home or self-care (01) ==
LOC: PC 20:53
PROVIDERS: ATTEND Nurse Practitioner Adult Health
DX: Z51.5 Encounter for palliative care (principal); R63.4 Abnormal weight loss; R44.1 Visual hallucinations; I95.9 Hypotension, unspecified; F32.9 Major depressive disorder, single episode, unspecified; G23.1 Progressive supranuclear ophthalmoplegia [Steele-Richardson-Olszewski]; E11.9 Type 2 diabetes mellitus without complications; K21.9 Gastro-esophageal reflux disease without esophagitis; I10 Essential (primary) hypertension; M25.512 Pain in left shoulder; M25.511 Pain in right shoulder; Z79.891 Long term (current) use of opiate analgesic; Z66 Do not resuscitate; Z99.3 Dependence on wheelchair; Z87.01 Personal history of pneumonia (recurrent)
CPT/HCPCS: 99310

== ENCOUNTER 2017-10-02 08:00 | Outpatient (CLI) | payer MEDICARE ==
[2017-10-02 02:51] LABS: BILIRUBIN,URINE NEGATIVE (NEGATIVE); CLARITY,URINE CLEAR (CLEAR); GLUCOSE, URINE (UA) NEGATIVE (NEGATIVE); KETONES,URINE (UA) NEGATIVE (NEGATIVE); LEUKOCYTE ESTERASE, URINE LARGE (NEGATIVE); NITRITE,URINE POSITIVE (NEGATIVE); OCCULT BLOOD,URINE NEGATIVE (NEGATIVE); PH,URINE >=9.0 PH (5.0-7.5); PROTEIN,URINE NEGATIVE (NEGATIVE); RBC,URINE 0-5 /HPF (0-5); SQUAMOUS EPITHELIAL CELL,UR RARE Squamous (<= Few); UROBILINOGEN,URINE 0.2 (NORMAL) E.U./dL (NORMAL)
[2017-10-02 02:52] LABS: AMORPHOUS SEDIMENT,UR Few /LPF; BACTERIA,URINE Moderate /HPF (None Seen)
== END 2017-10-02 08:01 | disposition home or self-care (01) ==
LOC: LAB.R 08:00
DX: R30.0 Dysuria (principal)
CPT/HCPCS: 81001; 81003; 87086

== ENCOUNTER 2017-10-14 08:00 | Outpatient (CLI) | payer MEDICARE ==
[2017-10-14 01:57] LABS: BASOPHILS % (AUTO) 0.5 %; EOSINOPHILS # (AUTO) 0.1 10^3/uL (0.0-0.7); EOSINOPHILS % (AUTO) 1.8 %; HGB - HEMOGLOBIN 13.3 g/dL (12.0-16.0); LYMPHOCYTES % (AUTO) 17.1 %; MEAN CORPUSCULAR HEMOGLOBIN 30.5 pg (27.0-31.0); MEAN CORPUSCULAR HGB CONC 34.2 g/dL (32.0-36.0); MEAN CORPUSCULAR VOLUME 89.3 fL (81.0-99.0); MEAN PLATELET VOLUME 9.5 fL (7.9-10.8); MONOCYTES # (AUTO) 0.5 10^3/uL (0.0-1.0); MONOCYTES % (AUTO) 8.9 %; NEUTROPHILS # (AUTO) 4.1 10^3/uL (1.5-6.6); NEUTROPHILS % (AUTO) 71.7 %; PLT - PLATELET COUNT 244 10^3/uL (130-450); RED BLOOD COUNT 4.34 10^6/uL (4.20-5.40); RED CELL DISTRIBUTION WIDTH 12.8 % (12.0-15.0); WHITE BLOOD COUNT 5.7 x10^3/uL (4.8-10.8)
[2017-10-14 02:03] LABS: CALCIUM 9.3 mg/dL (8.5-10.3); CREATININE 0.7 mg/dL (0.4-1.0)
== END 2017-10-14 08:01 ==
LOC: LAB.R 08:00
DX: E88.9 Metabolic disorder, unspecified (principal); Q66.7 Congenital pes cavus
CPT/HCPCS: 80048; 85025

== ENCOUNTER 2017-10-19 11:15 | Outpatient (CLI) | payer MEDICARE ==
--- NOTE | 2017-10-19 13:30 | CONSULTATION NOTE ---
Palliative Care Follow Up - Referral Referring Provider: Dr. Kamran Balderrama Time of Visit: 8428-4410 Referral [facility] Facility Referral Reason: PSP - Information Sources Records reviewed: RN notes reviewed, Previous records reviewed History/Review of Systems obtained from: Patient, Family (Spoke with sister Louie), Caregiver (Follow up with caregiver Clementina) Exam limitations: Clinical condition (Patient with decreased ability to speak, also appears to have more difficulty following conversation and delayed in answering.) - History of Present Illness Update Brief HPI Update: This is a jose 72-year-old woman with progressive supranuclear palsy, currently is at a senior living secondary to the need for support for tube feedings. She is continuing to decline, though not acutely, she has had increased vision changes, reports less energy, more balance problems, as well as increasing weakness. She also presents presents today with somewhat of a locked jaw, and chewing and picking at her lips. She is on continuous tube feedings, her weight has remained stable with her last weight on 26 146.7 she did have some GERD symptoms, but they had run into trouble with the pharmacy and she had not received her omeprazole for several days. She reports she continues to have pain bilaterally in her shoulders, 0 at rest, more so when she is up, she also has pain in her right arm she does tend to lean on this, and does have increased contractures. She reports she is managing her saliva okay, check with caregiver, sister, and staff no increasing cough, so regular caregiver Ruben reports less strength and cough effort. Her transfers have worsened, she has less trunk stability, and vomiting is a longer to able to take her out in her car. They have signed up for paratransit and will continue their weekly nail appointments. Social History - Living Situation Living arrangement: [facility] (Patient sister Louie oversees her care, she does visit her 2-3 times a week. Ruben her paid caregiver comes regularly and helps her with her hygiene as well as socialization. Continue have some frustrations as far as isolation and loneliness, patient does like to be in her bed more, she reports this is more comforting for her as well as her increased weakness.) Medications/Allergies - Medications Home Medications: Ambulatory Orders Medication Instructions Recorded Confirmed Losartan [Cozaar] 12.5 mg PEG DAILY 06/03/13 10/19/17 Brimonidine 0.2% Ophth Drops 1 drops EACHEYE BID 11/12/16 10/19/17 [Alphagan P 0.2% Ophth Drops] Dorzolamide 2% Ophth Drops 1 drops EACHEYE BID 11/12/16 10/19/17 [Trusopt 2% Ophth Drops] Latanoprost 0.005% Ophth Drops 1 drops EACHEYE DAILY 11/12/16 10/19/17 [Xalatan Ophth Drops] Acetaminophen 500 mg PEG Q6HR PRN 03/28/17 10/19/17 Bisacodyl Supp [Dulcolax Supp] 10 mg [place] DAILY PRN 03/28/17 10/19/17 Escitalopram Oxalate 10 mg PEG DAILY 03/28/17 10/19/17 HYDROcod/ACETAM 5/325 [[place] 5/325] 2.5 mg PEG Q8HR PRN 03/28/17 10/19/17 Loperamide HCl [Loperamide] 10 ml PEG Q6HR PRN 03/28/17 10/19/17 Multivitamin W/Minerals [Theragran 10 ml PEG DAILY 03/28/17 10/19/17 M] Polyethylene Glycol 3350 [Miralax] 17 gm PEG DAILY 03/28/17 10/19/17 guaiFENesin/DEXTROMETHORPHAN 10 ml PEG Q6HR PRN 03/28/17 10/19/17 [Robitussin Dm] HYDROcod/ACETAM 5/325 [[place] 5/325] 2.5 mg PEG Q8HR PRN 05/23/17 10/19/17 Ondansetron [Zuplenz] 8 mg PEG Q8HR PRN 05/23/17 10/19/17 Senna [Senokot] 8.6 mg PEG .EVERY OTHER DAY 07/15/17 10/19/17 Omeprazole Magnesium [Prilosec] 20 mg PEG BID 08/23/17 10/19/17 - Allergies Allergies/Adverse Reactions: Allergies Allergy/AdvReac Type Severity Reaction Status Date / Time Iodinated Contrast- Oral and Allergy Severe Respiratory Verified 08/07/17 12:35 IV Dye [Iodinated Contrast Media - IV Dye] bee pollen [Bee Pollen] Allergy Hives Verified 08/07/17 12:35 morphine AdvReac Intermediate Hallucinati Verified 08/07/17 12:35 ons Review of Systems - Constitutional Constitutional: reports: Fatigue, Weight loss (146.7) - Eyes Eyes: reports: Vision loss (worsening vision) - Ears, Nose & Throat Ears, Nose & Throat: reports: Other (picking at lips/) - Cardiovascular Cardiovascular: denies: Chest pain - Respiratory Respiratory: reports: Cough (no increase or perception is problem; CG reports weaker effort when does cough) - Gastrointestinal Gastrointestinal: reports: Reflux/heartburn (was out of omeprazole for few days) . denies: Constipation, Diarrhea, Nausea - Genitourinary Genitourinary: reports: Incontinence (reports would be more continent if toileted more often) - Musculoskeletal Musculoskeletal: reports: Stiffness, Limited range of motion (right arm; bilateral shoulders), Transfer issues (uses wheelchair when up) - Integumentary Integumentary: reports: Dryness - Neurological Neurological: reports: General weakness, Memory problems (patient feels worsening as well as staff/family observations), Slurred speech (more difficult to understand) - Psychiatric Psychiatric: reports: Hallucinations. denies: Depression, Anxiety - Endocrine Endocrine: reports: Diabetes type 2 (blood sugars doing fine) - Hematologic/Lymphatic Hematologic/Lymphatic: reports: Recurrent infections (UTIS; just finished treatment; tx for pneumonia in August). denies: Anemia - All Other Systems All Other Systems: reports: Reviewed and negative Physical Exam - Vital Signs Temperature: 98.3 C Pulse Rate: 60 Respiratory Rate: 18 O2 Saturation: 95 (ra @ rest) Blood Pressure: 108/62 - Physical Exam General Appearance: positive: No acute distress Eyes Bilateral: positive: Other (eyes appear more fixed; more difficulty focusing) ENT: positive: Other (has halitosis; mouth clean; unable to open jaw greater than about 1 cm; biting on lip; reports has been worsening over last few months ; no painful but making oral care more difficult) Cardiovascular: positive: Regular rate & rhythm Respiratory: positive: Diminished throughout. negative: Wheezes, Rales, Rhonchi Abdomen: positive: Non-tender, Soft, Nml bowel sounds Skin: positive: Pallor, Dryness. negative: Pressure wound Extremities: positive: Other (limited ROM right arm) Neurologic/Psychiatric: positive: Mood/affect nml, Disoriented to time, Weakness , Other (more difficulty with speech and tracking conversation; word finding; memory) Palliative Care - POLST Patient has POLST: Yes POLST Status: DNR, Selective Treatment Pain: Pain worsening, Location (right arm; bilateral shoulder pain; no pain at rest worse with transfers) Tiredness/Fatigue: Moderate (4-6) Drowsiness/Sedation: Mild (1-3) Nausea: Mild (1-3) Depression: None Anxiety: None Dyspnea: None Sleep: Sleeps well Constipation: Yes, Opoid induced, Managed Feelings of wellbeing/Perceived Quality of Life: Fair, Acceptable, Worsening Performance Status: Patient dependent for all ADLs, is spending more time in bed. She does get bathing twice a week, Ruben comes and provide support such as oral care and pericare. She is less able now to get out, they are working with paratransit. She is less able to participate in assisting in her own care. - Palliative Care Discussion: Patient more difficult to understand, and having more trouble with conversation than in the past. We did revisit her current quality of life. She still finds reece in things to appreciate, she does have a fairly significant kalani-based approach to all of this as well as quite pragmatic. She does say "I am getting worse". She denies fearfulness or distress related to this. She is getting visits from the palliative care director of dementia operations. She does like to be in her middle decorated space, and in her bed, this is what brings her comfort. Spoke with sister Louie on the phone, she continues to have frustrations with regarding her care plan, but for the most part again sees Katheryn is quite resilient. She has seen more confusion, more difficulty tracking as well as well as Ruben her caregiver. They have not seen any signs or symptoms of depression or concern at this point in time everybody recognizing her slow decline, no significant care decisions have needed to be made recently. Results - Lab Results Lab results reviewed: Yes Lab and Imaging Results: no elevated WBC nor anemia Impression and Recommendations - Palliative Care Impression: This is a jose 72-year-old woman with progressive supranuclear palsy, continuing to have functional decline, with more symptoms of cognitive decline this visit. He just finished treatment for UTI, she was treated for pneumonia in August, she has had just a few pound weight loss over the last few months. She is maintained with tube feedings. She still perceives her quality of life is acceptable, and her goals are to focus on comfort and quality of life issues. Recommendations/Counseling Done: 1.Progressive supranuclear palsy. Patient is showing symptoms of decline, increased vision changes, increased fixed gaze, more upper extremity weakness, trunk instability, and difficulty with transfers. She does have right arm contracture worsening. Did follow up to add range of motion to her functional maintenance program, may need to reorder OT support. Both patient and family recognize slow decline, continue to support weighing benefits and burdens as decisions come up to palliative care. 2.Dysphagia,Patient has a more weak cough effort, but no increase in choking. She is doing better on her continuous infusion for her tube feeding. She is getting water flushes and remaining adequately hydrated. She is remained fairly weight neutral. 3. Bilateral shoulder pain. She is on a very low dose of hydrocodone, we did discuss increasing her dosing, she reports no pain at rest only with transfers. Declined when offered to titrate up. 4. Jaw contracture. Patient unable to open jaw her mouth more than 1 cm, this is causing increased difficulty with oral care as well as she tends to bite her lip. She does have some trauma to her lower lip, she is also "picking it". Will order a and D ointment 3 times a day to keep moist and discourage further picking. Also will order speech therapy for evaluation and treat to see if she can address any of this lockjaw and function. 5. Advanced care planning. [address]AZMY[address] is in place, patient has decline since last seen with few changes. With increased weakness, increased difficulty with transfers, weaker cough, and cognitive changes. Patient's goals are to focus on quality of life issues, she does continue me amazingly resilient and positive in light of what she is facing. Time Spent: Time spent 45 minutes with greater than 50% of this done in counseling and coronation of care with clinical staff family and support for grief and loss and anticipatory guidance with patient
== END 2017-10-19 11:16 | disposition home or self-care (01) ==
LOC: PC 11:15
PROVIDERS: ATTEND Nurse Practitioner Adult Health
DX: Z51.5 Encounter for palliative care (principal); G23.1 Progressive supranuclear ophthalmoplegia [Steele-Richardson-Olszewski]; R13.10 Dysphagia, unspecified; M25.512 Pain in left shoulder; M25.511 Pain in right shoulder; M24.50 Contracture, unspecified joint; K59.03 Drug induced constipation; Z79.891 Long term (current) use of opiate analgesic; Z93.1 Gastrostomy status; Z66 Do not resuscitate
CPT/HCPCS: 99310

== ENCOUNTER 2017-10-31 13:00 | Outpatient (CLI) | payer MEDICARE ==
--- NOTE | 2017-10-31 17:11 | CONSULTATION NOTE ---
Palliative Care Follow Up - Referral Referring Provider: Dr. Ceci Traylor Time of Visit: [phone] Referral setting: [facility] Referral Reason: Dysuria/Ear Pain - Information Sources Records reviewed: RN notes reviewed, Previous records reviewed History/Review of Systems obtained from: Patient, Caregiver (clinical staff) Exam limitations: Clinical condition (patient with more difficulty communicating ; some STM issues) - History of Present Illness Update Brief HPI Update: This is a jose 72-year-old woman with progressive supranuclear palsy, currently at the [facility] secondary to the need for support for tube feedings. She has continued to have decline, with increased vision changes, fatigue, more contractures and less control over her movements, more balance problems, and increasing weakness. She does present with somewhat of a locked jaw, and today acutely with left ear pain. She also is complaining of increased pain and burning with urination though she has just recently completed antibiotics on 10/11. She had refused a cath urine yesterday, as this is uncomfortable for her, she did agree for Kylie the nurse and I to do it today. On exam patient does have a significant amount of cerumen, in both ears. Left ear the tympanic membrane though difficult to visualize, is with erythema and very painful on exam. Patient reports increasing pain over the last 2-3 days, and tenderness even to touch on the external pressure of her earlobe. She reports she feels fluish and has an "ear infection". Very tearful relating to discomfort. Patient also reports dysuria, both at beginning and end of stream. Reports this started in the last 2448 hrs. as well, does not feel it is candidiasis. Did attempt 2 to get a cathed specimen, patient does not have signs or symptoms of candidiasis, but is with swelling and tenderness in the vaginal folds and around the urethra. Did clean with Betadine, and collect a clean- catch specimen. Patient just finished antibiotic on 10/11. Patient has not shown symptoms of urinary retention, but does report she often holds her urine for long periods of time, and is intermittently incontinent when unable to get up to the bathroom Also communication from her sister Louie regarding patient's increased limitation of opening her jaw, did speak with speech therapy has not evaluated her yet. She was wondering about having her seen by the dentist, though patient with limited ability for teeth cleaning with be good for her gum health , as well as follow-up on her glaucoma. At this point in time patient has been able use paratransit, so this will still facilitate outside visits in weighing benefits and burdens of moving forward with patient attending outside appointments. Social History - Living Situation Living arrangement: half-way Support System: Patient has Ruben, paid caregiver who comes regularly to help her with hygiene needs and socialization. Louie oversees her care and visits 2-3 times a week as well as well as advocates for her medical needs Medications/Allergies - Medications Home Medications: Ambulatory Orders Medication Instructions Recorded Confirmed Losartan [Cozaar] 12.5 mg PEG DAILY 06/03/13 10/31/17 Brimonidine 0.2% Ophth Drops 1 drops EACHEYE BID 11/12/16 10/31/17 [Alphagan P 0.2% Ophth Drops] Dorzolamide 2% Ophth Drops 1 drops EACHEYE BID 11/12/16 10/31/17 [Trusopt 2% Ophth Drops] Latanoprost 0.005% Ophth Drops 1 drops EACHEYE DAILY 11/12/16 10/31/17 [Xalatan Ophth Drops] Acetaminophen 500 mg PEG Q6HR PRN 03/28/17 10/31/17 Bisacodyl Supp [Dulcolax Supp] 10 mg [place] DAILY PRN 03/28/17 10/31/17 Escitalopram Oxalate 10 mg PEG DAILY 03/28/17 10/31/17 HYDROcod/ACETAM 5/325 [[place] 5/325] 2.5 mg PEG Q8HR PRN 03/28/17 10/31/17 Loperamide HCl [Loperamide] 10 ml PEG Q6HR PRN 03/28/17 10/31/17 Multivitamin W/Minerals [Theragran 10 ml PEG DAILY 03/28/17 10/31/17 M] Polyethylene Glycol 3350 [Miralax] 17 gm PEG DAILY 03/28/17 10/31/17 guaiFENesin/DEXTROMETHORPHAN 10 ml PEG Q6HR PRN 03/28/17 10/31/17 [Robitussin Dm] HYDROcod/ACETAM 5/325 [[place] 5/325] 2.5 mg PEG Q8HR PRN 05/23/17 10/31/17 Ondansetron [Zuplenz] 8 mg PEG Q8HR PRN 05/23/17 10/31/17 Senna [Senokot] 8.6 mg PEG .EVERY OTHER DAY 07/15/17 10/31/17 Omeprazole Magnesium [Prilosec] 20 mg PEG BID 08/23/17 10/31/17 Amoxicillin 1,000 mg PEG Q8HR MDD for 5 days 10/31/17 10/31/17 Carbamide Peroxide Otic Drop 2 drops EACHEAR .BID FOR 4 DAYS 10/31/17 10/31/17 [Debrox Otic Drops] MDD to start after AB - Allergies Allergies/Adverse Reactions: Allergies Allergy/AdvReac Type Severity Reaction Status Date / Time Iodinated Contrast- Oral and Allergy Severe Respiratory Verified 08/07/17 12:35 IV Dye [Iodinated Contrast Media - IV Dye] bee pollen [Bee Pollen] Allergy Hives Verified 08/07/17 12:35 morphine AdvReac Intermediate Hallucinati Verified 08/07/17 12:35 ons Review of Systems - Constitutional Constitutional: reports: Fatigue, Weight loss (10/16 146.7) - Eyes Eyes: reports: Vision loss, Other (feels worsening; discussed with sister f/up with eye doctor) - Ears, Nose & Throat Ears, Nose & Throat: reports: Ear pain (severe left about 3 days), Other (tight jaw; limited ability to open mouth) - Cardiovascular Cardiovascular: denies: Chest pain - Respiratory Respiratory: reports: Cough (at times with secretions; no increase or noted recent episodes) - Gastrointestinal Gastrointestinal: denies: Nausea, Reflux/heartburn - Genitourinary Genitourinary: reports: Dysuria, Incontinence (if unable to get assist to BR) - Musculoskeletal Musculoskeletal: reports: Muscle pain, Muscle aches, Stiffness, Limited range of motion (right shoulder; contractures noted elbows), Muscle weakness, Transfer issues (patient with more extension; difficulty bending when transfered ) - Integumentary Integumentary: reports: Dryness - Neurological Neurological: reports: General weakness, Memory problems, Other (speech much slower) - Psychiatric Psychiatric: reports: Anxiety (related to ear pain), Delusions. denies: Depression - Endocrine Endocrine: reports: Diabetes type 2 (blood sugars 3 X a week good) - Hematologic/Lymphatic Hematologic/Lymphatic: reports: Recurrent infections (just finished AB 10/11 for UTI) - All Other Systems All Other Systems: reports: Reviewed and negative Physical Exam - Vital Signs Temperature: 97.2 C Pulse Rate: 72 Respiratory Rate: 18 - Physical Exam General Appearance: positive: Mild distress (related to ear pain; and concern with catheter specimen) Eyes Bilateral: positive: Other (conjuntivae with some redness right greater than left) ENT: positive: Other (continues with limited ROM; increase difficulty with oral care) Neck: positive: Trachea midline, Stiff neck (hyperextension of neck worsening) Cardiovascular: positive: Regular rate & rhythm Respiratory: positive: Breath sounds nml Abdomen: positive: Non-tender, Soft, Nml bowel sounds Skin: positive: Other (peg exit site good) Extremities: positive: No pedal edema Neurologic/Psychiatric: positive: Mood/affect nml, Disoriented to time, Weakness Palliative Care - POLST Patient has POLST: Yes POLST Status: DNR, Selective Treatment Pain: Comment (New acute pain of left ear, patient reports shoulder pain no better no worse. Does not want to adjust her current pain medications.) Tiredness/Fatigue: Moderate (4-6) Drowsiness/Sedation: Moderate (4-6) Nausea: None Depression: None Anxiety: Moderate (4-6) (related to ear pain) Dyspnea: None Anorexia: None Sleep: Sleeps well Constipation: Yes, Opoid induced, Managed Feelings of wellbeing/Perceived Quality of Life: Fair, Acceptable Performance Status: Patient with increasing difficulty with pivot transfers, some of this is her hyperextension, fear of falling, and increased weakness. She is dependent for all ADLs, does like to sit in the hallway in her wheelchair to decrease her social isolation. - Palliative Care Discussion: Patient continues to be more difficult to understand, her speech is also slowed. Patient continues to approach her quality of life In the sequela of her disease in the pragmatic way. She does perceive herself as deteriorating, but is not distressed or depressed regarding this. She very much enjoys the attention staff provide her, and feels supported both by her family and friends. Results - Lab Results Lab and Imaging Results: Lab Results x24hrs 10/31/17 Range/Units 13:30 Urine Color YELLOW Urine Clarity CLOUDY (CLEAR) Urine pH 8.5 H (5.0-7.5) PH Ur Specific [place] 1.015 (1.002-1.030) Urine Protein NEGATIVE (NEGATIVE) mg/dL Urine Glucose (UA) NEGATIVE (NEGATIVE) mg/dL Urine Ketones NEGATIVE (NEGATIVE) mg/dL Urine Occult Blood NEGATIVE (NEGATIVE) Urine Nitrite POSITIVE H (NEGATIVE) Urine Bilirubin NEGATIVE (NEGATIVE) Urine Urobilinogen 0.2 (NORMAL) (NORMAL) E.U./dL Ur Leukocyte Esterase LARGE H (NEGATIVE) Urine RBC 0-5 (0-5) /HPF Urine WBC 11-25 H (0-5) /HPF Ur Squamous Epith Cells RARE Squamous (<= Few) Urine Crystals 11-25 Triple Phos /LPF Urine Bacteria Few (None Seen) /HPF Ur Microscopic Review INDICATED Urine Culture Comments INDICATED Impression and Recommendations - Palliative Care Impression: This is a jose 72-year-old woman with progressive supranuclear palsy, continuing to have slow functional and cognitive decline. She presents today though with acute otitis media in her left ear, as well as recurrent symptoms of UTI. She continues to perceive her quality of life is acceptable, and her goals are to focus on comfort and quality of life issues. Palliative care to continue to provide support in meeting these goals. Will transition to hospice when appropriate. Recommendations/Counseling Done: 1. Acute otitis media of left ear. Patient is quite symptomatic, also has packed cerumen in both ears. Will treat with Amoxicillin 1 gm every 8 hours for 5 days. After treatment will have nurses use debrox for 4 days and then warm water flushing. 2. Dysuria. Attempted to get cath specimen, unable to without excessive trauma. Did obtain clean-catch urine specimen, which already is positive. Will wait for C&S Results, is currently on amoxicillin, without systemic symptoms. May consider adding D-mannose if organism E. Coli. 3. PSP. Revisited with speech therapy regarding evaluation if any interventions available. Sister will follow-up with eye doctor regarding update on glaucoma, it has been greater than a year. Patient has had no increase in choking, is tolerating continuous infusion with break during the day , she reports this is acceptable. 5. Advanced care planning. JAZMYNE ST in place, patient continues with slow decline, unfortunately continues also with recurrent infections. Patient's goals remain to focus on quality of life issues, continue to provide support at [facility]. Time Spent: 45 minutes with greater than 50% of this done in counseling coordination of care with clinical staff follow-up with sister.
== END 2017-10-31 13:01 | disposition home or self-care (01) ==
LOC: PC 13:00
PROVIDERS: ATTEND Nurse Practitioner Adult Health
DX: Z51.5 Encounter for palliative care (principal); H66.92 Otitis media, unspecified, left ear; R30.0 Dysuria; G23.1 Progressive supranuclear ophthalmoplegia [Steele-Richardson-Olszewski]; Z93.1 Gastrostomy status; H40.9 Unspecified glaucoma; R53.83 Other fatigue; M27.8 Other specified diseases of jaws; M62.81 Muscle weakness (generalized); E11.9 Type 2 diabetes mellitus without complications; K59.03 Drug induced constipation; T40.2X5D Adverse effect of other opioids, subsequent encounter; Z79.891 Long term (current) use of opiate analgesic; N39.0 Urinary tract infection, site not specified; Z66 Do not resuscitate
CPT/HCPCS: 99310

== ENCOUNTER 2017-10-31 15:52 | Outpatient (CLI) | payer MEDICARE ==
[2017-10-31 15:08] LABS: BILIRUBIN,URINE NEGATIVE (NEGATIVE); GLUCOSE, URINE (UA) NEGATIVE (NEGATIVE); KETONES,URINE (UA) NEGATIVE (NEGATIVE); LEUKOCYTE ESTERASE, URINE LARGE (NEGATIVE); NITRITE,URINE POSITIVE (NEGATIVE); OCCULT BLOOD,URINE NEGATIVE (NEGATIVE); PH,URINE 8.5 PH (5.0-7.5); PROTEIN,URINE NEGATIVE (NEGATIVE); UROBILINOGEN,URINE 0.2 (NORMAL) E.U./dL (NORMAL)
[2017-10-31 15:09] LABS: CLARITY,URINE CLOUDY (CLEAR)
[2017-10-31 15:26] LABS: BACTERIA,URINE Few /HPF (None Seen); RBC,URINE 0-5 /HPF (0-5); SQUAMOUS EPITHELIAL CELL,UR RARE Squamous (<= Few)
[2017-10-31 15:27] LABS: CRYSTALS,URINE 11-25 Triple Phos /LPF
--- NOTE | 2017-10-31 17:11 | CONSULTATION NOTE ---
Palliative Care Follow Up - Referral Referring Provider: Dr. Ceci Traylor Time of Visit: 9866-2523 Referral setting: [facility] Referral Reason: Dysuria/Ear Pain - Information Sources Records reviewed: RN notes reviewed, Previous records reviewed History/Review of Systems obtained from: Patient, Caregiver (clinical staff) Exam limitations: Clinical condition (patient with more difficulty communicating ; some STM issues) - History of Present Illness Update Brief HPI Update: This is a jose 72-year-old woman with progressive supranuclear palsy, currently at the [facility] secondary to the need for support for tube feedings. She has continued to have decline, with increased vision changes, fatigue, more contractures and less control over her movements, more balance problems, and increasing weakness. She does present with somewhat of a locked jaw, and today acutely with left ear pain. She also is complaining of increased pain and burning with urination though she has just recently completed antibiotics on 10/11. She had refused a cath urine yesterday, as this is uncomfortable for her, she did agree for Kylie the nurse and I to do it today. On exam patient does have a significant amount of cerumen, in both ears. Left ear the tympanic membrane though difficult to visualize, is with erythema and very painful on exam. Patient reports increasing pain over the last 2-3 days, and tenderness even to touch on the external pressure of her earlobe. She reports she feels fluish and has an "ear infection". Very tearful relating to discomfort. Patient also reports dysuria, both at beginning and end of stream. Reports this started in the last 2448 hrs. as well, does not feel it is candidiasis. Did attempt 2 to get a cathed specimen, patient does not have signs or symptoms of candidiasis, but is with swelling and tenderness in the vaginal folds and around the urethra. Did clean with Betadine, and collect a clean- catch specimen. Patient just finished antibiotic on 10/11. Patient has not shown symptoms of urinary retention, but does report she often holds her urine for long periods of time, and is intermittently incontinent when unable to get up to the bathroom Also communication from her sister Louie regarding patient's increased limitation of opening her jaw, did speak with speech therapy has not evaluated her yet. She was wondering about having her seen by the dentist, though patient with limited ability for teeth cleaning with be good for her gum health , as well as follow-up on her glaucoma. At this point in time patient has been able use paratransit, so this will still facilitate outside visits in weighing benefits and burdens of moving forward with patient attending outside appointments. Social History - Living Situation Living arrangement: long-term Support System: Patient has Ruben, paid caregiver who comes regularly to help her with hygiene needs and socialization. Louie oversees her care and visits 2-3 times a week as well as well as advocates for her medical needs Medications/Allergies - Medications Home Medications: Ambulatory Orders Medication Instructions Recorded Confirmed Losartan [Cozaar] 12.5 mg PEG DAILY 06/03/13 10/31/17 Brimonidine 0.2% Ophth Drops 1 drops EACHEYE BID 11/12/16 10/31/17 [Alphagan P 0.2% Ophth Drops] Dorzolamide 2% Ophth Drops 1 drops EACHEYE BID 11/12/16 10/31/17 [Trusopt 2% Ophth Drops] Latanoprost 0.005% Ophth Drops 1 drops EACHEYE DAILY 11/12/16 10/31/17 [Xalatan Ophth Drops] Acetaminophen 500 mg PEG Q6HR PRN 03/28/17 10/31/17 Bisacodyl Supp [Dulcolax Supp] 10 mg [place] DAILY PRN 03/28/17 10/31/17 Escitalopram Oxalate 10 mg PEG DAILY 03/28/17 10/31/17 HYDROcod/ACETAM 5/325 [[place] 5/325] 2.5 mg PEG Q8HR PRN 03/28/17 10/31/17 Loperamide HCl [Loperamide] 10 ml PEG Q6HR PRN 03/28/17 10/31/17 Multivitamin W/Minerals [Theragran 10 ml PEG DAILY 03/28/17 10/31/17 M] Polyethylene Glycol 3350 [Miralax] 17 gm PEG DAILY 03/28/17 10/31/17 guaiFENesin/DEXTROMETHORPHAN 10 ml PEG Q6HR PRN 03/28/17 10/31/17 [Robitussin Dm] HYDROcod/ACETAM 5/325 [[place] 5/325] 2.5 mg PEG Q8HR PRN 05/23/17 10/31/17 Ondansetron [Zuplenz] 8 mg PEG Q8HR PRN 05/23/17 10/31/17 Senna [Senokot] 8.6 mg PEG .EVERY OTHER DAY 07/15/17 10/31/17 Omeprazole Magnesium [Prilosec] 20 mg PEG BID 08/23/17 10/31/17 Amoxicillin 1,000 mg PEG Q8HR MDD for 5 days 10/31/17 10/31/17 Carbamide Peroxide Otic Drop 2 drops EACHEAR .BID FOR 4 DAYS 10/31/17 10/31/17 [Debrox Otic Drops] MDD to start after AB - Allergies Allergies/Adverse Reactions: Allergies Allergy/AdvReac Type Severity Reaction Status Date / Time Iodinated Contrast- Oral and Allergy Severe Respiratory Verified 08/07/17 12:35 IV Dye [Iodinated Contrast Media - IV Dye] bee pollen [Bee Pollen] Allergy Hives Verified 08/07/17 12:35 morphine AdvReac Intermediate Hallucinati Verified 08/07/17 12:35 ons Review of Systems - Constitutional Constitutional: reports: Fatigue, Weight loss (10/16 146.7) - Eyes Eyes: reports: Vision loss, Other (feels worsening; discussed with sister f/up with eye doctor) - Ears, Nose & Throat Ears, Nose & Throat: reports: Ear pain (severe left about 3 days), Other (tight jaw; limited ability to open mouth) - Cardiovascular Cardiovascular: denies: Chest pain - Respiratory Respiratory: reports: Cough (at times with secretions; no increase or noted recent episodes) - Gastrointestinal Gastrointestinal: denies: Nausea, Reflux/heartburn - Genitourinary Genitourinary: reports: Dysuria, Incontinence (if unable to get assist to BR) - Musculoskeletal Musculoskeletal: reports: Muscle pain, Muscle aches, Stiffness, Limited range of motion (right shoulder; contractures noted elbows), Muscle weakness, Transfer issues (patient with more extension; difficulty bending when transfered ) - Integumentary Integumentary: reports: Dryness - Neurological Neurological: reports: General weakness, Memory problems, Other (speech much slower) - Psychiatric Psychiatric: reports: Anxiety (related to ear pain), Delusions. denies: Depression - Endocrine Endocrine: reports: Diabetes type 2 (blood sugars 3 X a week good) - Hematologic/Lymphatic Hematologic/Lymphatic: reports: Recurrent infections (just finished AB 10/11 for UTI) - All Other Systems All Other Systems: reports: Reviewed and negative Physical Exam - Vital Signs Temperature: 97.2 C Pulse Rate: 72 Respiratory Rate: 18 - Physical Exam General Appearance: positive: Mild distress (related to ear pain; and concern with catheter specimen) Eyes Bilateral: positive: Other (conjuntivae with some redness right greater than left) ENT: positive: Other (continues with limited ROM; increase difficulty with oral care) Neck: positive: Trachea midline, Stiff neck (hyperextension of neck worsening) Cardiovascular: positive: Regular rate & rhythm Respiratory: positive: Breath sounds nml Abdomen: positive: Non-tender, Soft, Nml bowel sounds Skin: positive: Other (peg exit site good) Extremities: positive: No pedal edema Neurologic/Psychiatric: positive: Mood/affect nml, Disoriented to time, Weakness Palliative Care - POLST Patient has POLST: Yes POLST Status: DNR, Selective Treatment Pain: Comment (New acute pain of left ear, patient reports shoulder pain no better no worse. Does not want to adjust her current pain medications.) Tiredness/Fatigue: Moderate (4-6) Drowsiness/Sedation: Moderate (4-6) Nausea: None Depression: None Anxiety: Moderate (4-6) (related to ear pain) Dyspnea: None Anorexia: None Sleep: Sleeps well Constipation: Yes, Opoid induced, Managed Feelings of wellbeing/Perceived Quality of Life: Fair, Acceptable Performance Status: Patient with increasing difficulty with pivot transfers, some of this is her hyperextension, fear of falling, and increased weakness. She is dependent for all ADLs, does like to sit in the hallway in her wheelchair to decrease her social isolation. - Palliative Care Discussion: Patient continues to be more difficult to understand, her speech is also slowed. Patient continues to approach her quality of life In the sequela of her disease in the pragmatic way. She does perceive herself as deteriorating, but is not distressed or depressed regarding this. She very much enjoys the attention staff provide her, and feels supported both by her family and friends. Results - Lab Results Lab and Imaging Results: Lab Results x24hrs 10/31/17 Range/Units 13:30 Urine Color YELLOW Urine Clarity CLOUDY (CLEAR) Urine pH 8.5 H (5.0-7.5) PH Ur Specific [place] 1.015 (1.002-1.030) Urine Protein NEGATIVE (NEGATIVE) mg/dL Urine Glucose (UA) NEGATIVE (NEGATIVE) mg/dL Urine Ketones NEGATIVE (NEGATIVE) mg/dL Urine Occult Blood NEGATIVE (NEGATIVE) Urine Nitrite POSITIVE H (NEGATIVE) Urine Bilirubin NEGATIVE (NEGATIVE) Urine Urobilinogen 0.2 (NORMAL) (NORMAL) E.U./dL Ur Leukocyte Esterase LARGE H (NEGATIVE) Urine RBC 0-5 (0-5) /HPF Urine WBC 11-25 H (0-5) /HPF Ur Squamous Epith Cells RARE Squamous (<= Few) Urine Crystals 11-25 Triple Phos /LPF Urine Bacteria Few (None Seen) /HPF Ur Microscopic Review INDICATED Urine Culture Comments INDICATED Impression and Recommendations - Palliative Care Impression: This is a jose 72-year-old woman with progressive supranuclear palsy, continuing to have slow functional and cognitive decline. She presents today though with acute otitis media in her left ear, as well as recurrent symptoms of UTI. She continues to perceive her quality of life is acceptable, and her goals are to focus on comfort and quality of life issues. Palliative care to continue to provide support in meeting these goals. Will transition to hospice when appropriate. Recommendations/Counseling Done: 1. Acute otitis media of left ear. Patient is quite symptomatic, also has packed cerumen in both ears. Will treat with Amoxicillin 1 gm every 8 hours for 5 days. After treatment will have nurses use debrox for 4 days and then warm water flushing. 2. Dysuria. Attempted to get cath specimen, unable to without excessive trauma. Did obtain clean-catch urine specimen, which already is positive. Will wait for C&S Results, is currently on amoxicillin, without systemic symptoms. May consider adding D-mannose if organism E. Coli. 3. PSP. Revisited with speech therapy regarding evaluation if any interventions available. Sister will follow-up with eye doctor regarding update on glaucoma, it has been greater than a year. Patient has had no increase in choking, is tolerating continuous infusion with break during the day , she reports this is acceptable. 5. Advanced care planning. JAZMYNE ST in place, patient continues with slow decline, unfortunately continues also with recurrent infections. Patient's goals remain to focus on quality of life issues, continue to provide support at [facility]. Time Spent: 45 minutes with greater than 50% of this done in counseling coordination of care with clinical staff follow-up with sister.
== END 2017-10-31 15:53 | disposition home or self-care (01) ==
LOC: LAB.R 15:52
DX: R30.0 Dysuria (principal)
CPT/HCPCS: 81001; 81003; 87086

== ENCOUNTER 2017-11-26 15:15 | Outpatient (CLI) | payer MEDICARE ==
--- NOTE | 2017-11-26 19:47 | CONSULTATION NOTE ---
Palliative Care Follow Up - Referral Referring Provider: Dr. Ceci Balderrama Time of Visit: [id number] Referral setting: [facility] Facility Referral Reason: PSP - Information Sources Records reviewed: RN notes reviewed, Previous records reviewed History/Review of Systems obtained from: Patient, Caregiver (Custodial Staff) Exam limitations: Clinical condition (Patient with increased difficulty understanding her speech, does have short-term memory issues.) - History of Present Illness Update Brief HPI Update: This is a jose 72-year-old woman with progressive supranuclear palsy, currently at the long term, secondary to increased care needs and support for her tube feedings. She continues to have decline with increased vision changes, spending more time in bed with fatigue, contractures, less control over her movements, and increasing weakness. She does present with somewhat of contracted locked jaw, and more difficulty with communicating today. This was confirmed by her sister, is having increased difficulty over the last couple weeks as well. She has remained weight neutral at 147.2, was treated for her recurrent UTIs at the end of October, also had an acute left ear infection. She does complain still of some mild tenderness, and review of nursing records, patient did receive antibiotics and Debrox, but does not appear to have had the flushing done. On examination she still has significant amount of cerumen in left ear, right eardrum visualized with to small amount. No erythema. Social History - Living Situation Living arrangement: halfway Support System: Sister Louie oversees her care and visit several times a week, patient has a paid caregiver Ruben who comes regularly to help her with hygiene and socialization as well. Medications/Allergies - Medications Home Medications: Ambulatory Orders Medication Instructions Recorded Confirmed Losartan [Cozaar] 12.5 mg PEG DAILY 06/03/13 11/26/17 Brimonidine 0.2% Ophth Drops 1 drops EACHEYE BID 11/12/16 11/26/17 [Alphagan P 0.2% Ophth Drops] Dorzolamide 2% Ophth Drops 1 drops EACHEYE BID 11/12/16 11/26/17 [Trusopt 2% Ophth Drops] Latanoprost 0.005% Ophth Drops 1 drops EACHEYE DAILY 11/12/16 11/26/17 [Xalatan Ophth Drops] Acetaminophen 500 mg PEG Q6HR PRN 03/28/17 11/26/17 Bisacodyl Supp [Dulcolax Supp] 10 mg [place] DAILY PRN 03/28/17 11/26/17 Escitalopram Oxalate 10 mg PEG DAILY 03/28/17 11/26/17 HYDROcod/ACETAM 5/325 [[place] 5/325] 2.5 mg PEG Q8HR PRN 03/28/17 11/26/17 Loperamide HCl [Loperamide] 10 ml PEG Q6HR PRN 03/28/17 11/26/17 Multivitamin W/Minerals [Theragran 10 ml PEG DAILY 03/28/17 11/26/17 M] Polyethylene Glycol 3350 [Miralax] 17 gm PEG DAILY 03/28/17 11/26/17 guaiFENesin/DEXTROMETHORPHAN 10 ml PEG Q6HR PRN 03/28/17 11/26/17 [Robitussin Dm] HYDROcod/ACETAM 5/325 [[place] 5/325] 2.5 mg PEG Q8HR PRN 05/23/17 11/26/17 Ondansetron [Zuplenz] 8 mg PEG Q8HR PRN 05/23/17 11/26/17 Senna [Senokot] 8.6 mg PEG .EVERY OTHER DAY 07/15/17 11/26/17 Omeprazole Magnesium [Prilosec] 20 mg PEG BID 08/23/17 11/26/17 Carbamide Peroxide Otic Drop 2 drops EACHEAR .BID FOR 4 DAYS 10/31/17 11/26/17 [Debrox Otic Drops] - Allergies Allergies/Adverse Reactions: Allergies Allergy/AdvReac Type Severity Reaction Status Date / Time Iodinated Contrast- Oral and Allergy Severe Respiratory Verified 08/07/17 12:35 IV Dye [Iodinated Contrast Media - IV Dye] bee pollen [Bee Pollen] Allergy Hives Verified 08/07/17 12:35 morphine AdvReac Intermediate Hallucinati Verified 08/07/17 12:35 ons Review of Systems - Constitutional Constitutional: reports: Fatigue, Weight stable (147.2) - Ears, Nose & Throat Ears, Nose & Throat: reports: Ear pain (slight tenderness on exam but much improved), Dry mouth - Cardiovascular Cardiovascular: denies: Chest pain - Respiratory Respiratory: reports: Cough (intermittent but denies choking episodes worsening) - Gastrointestinal Gastrointestinal: denies: Constipation, Diarrhea, Nausea, Reflux/heartburn - Genitourinary Genitourinary: reports: Incontinence. denies: Dysuria - Musculoskeletal Musculoskeletal: reports: Stiffness, Limited range of motion (upper extremities with contractures; right greater than left), Transfer issues (uses wheelchair; can walk few steps but poor balance and tips back) - Integumentary Integumentary: reports: Dryness - Neurological Neurological: reports: General weakness, Memory problems, Slurred speech (more difficult to understand and she reports more difficulty in speaking) - Psychiatric Psychiatric: denies: Depression, Hallucinations - Endocrine Endocrine: reports: Diabetes type 2 (blood sugars in good range) - Hematologic/Lymphatic Hematologic/Lymphatic: reports: Recurrent infections (UTIs) - All Other Systems All Other Systems: reports: Reviewed and negative Physical Exam - Vital Signs Temperature: 97.9 C Pulse Rate: 83 Respiratory Rate: 18 O2 Saturation: 92 (ra @ rest) Blood Pressure: 132/68 - Physical Exam General Appearance: positive: No acute distress, Alert Eyes Bilateral: positive: Other (difficulty fixing gaze; watery on exam; no redness) ENT: positive: Other (jaw able to open less than 1 cm space fron teeth; difficult for oral exam;) Neck: positive: Other (hyperextension of neck; more contracted) Cardiovascular: positive: Regular rate & rhythm Respiratory: positive: Diminished throughout, Other (difficulty taking deep breath) Abdomen: positive: Non-tender, Soft, Nml bowel sounds, Other (PEG exit site without signs/symptoms of infections) Skin: positive: Pallor, Dryness. negative: Pressure wound Extremities: positive: No pedal edema, Other (contractures upper extremities right greater than left; limited ROM shoulders) Neurologic/Psychiatric: positive: Disoriented to place, Disoriented to time, Slurred/abnml speech (much less air forced movement to be able to speak). negative: Depressed mood/affect Palliative Care - POLST Patient has POLST: Yes POLST Status: DNR, Selective Treatment Pain: Pain unchanged, Location (bilateral shoulder pain; declines need for adjustment;) Tiredness/Fatigue: Moderate (4-6) Feelings of wellbeing/Perceived Quality of Life: Fair, Acceptable, No change Performance Status: Patient dependent for all ADLs, transfers, and toileting. She does receive bathing twice a week, has been spending more time in bed, she reports this is related to fatigue as well as more comfortable laying down then being up. - Palliative Care Discussion: Reviewed patient's current perception of quality life, she does still find reece and satisfaction with visiting with family, friends, and staff. She is stable to get up in her wheelchair, does interact with those around her as best she can. She denies any fears or worries, concerns about the future, discussed given she was losing some of her communication if okay to talk about when quality of life would not be acceptable. This was difficult given her decline in voice quality, and ability enunciate words. Did reconfirm, it would be when she is unable to enjoy her company, if she were in any increased distress or pain, or no longer to be able to get up. She does enjoy her kalani, visits from her friend Mohinder, and time with her sister. She denies any symptoms of increased depression or distress. She is still having increased difficulty making her needs known Impression and Recommendations - Palliative Care Impression: This is a jose 72-year-old woman with progressive supranuclear palsy, continued to have slow functional and cognitive decline. She presents today with increased difficulty with communication, increased fatigue and time spent in bed, but remains satisfied with her current quality of life. Palliative care to continue provide support, will transition to hospice when appropriate Recommendations/Counseling Done: 1. Cerumen impaction.Acute otitis media of left ear appears resolved, no has not had ears flushed and cerumen still present. We ordered Debrox and water flushing. 2. PSP. Patient presents with ongoing decline, both functional and cognitive. Now with increased difficulty with communication. Follow-up with speech therapy, is working on clemicheleh jaw, will revisit and continue to focus on communication enhancements. Patient with progressive disease and expected ongoing decline 4. Advanced care planning. Revisited goals with patient, current quality of life still acceptable. JAZMYNE ST in place. Patient at high risk regarding sequela of frequent UTIs. Patient goal remains to focus on quality of life issues, palliative care to continue provide support and long term environment until transition to hospice. Time Spent: 45 minutes with greater than 50% of this done in counseling for depression, goals of care, as well as coordination of care with clinical staff.
== END 2017-11-26 15:16 | disposition home or self-care (01) ==
LOC: PC 15:15
PROVIDERS: ATTEND Nurse Practitioner Adult Health
DX: Z51.5 Encounter for palliative care (principal); H61.22 Impacted cerumen, left ear; G23.1 Progressive supranuclear ophthalmoplegia [Steele-Richardson-Olszewski]; E11.9 Type 2 diabetes mellitus without complications; F32.9 Major depressive disorder, single episode, unspecified; F41.9 Anxiety disorder, unspecified; Z87.440 Personal history of urinary (tract) infections; Z93.1 Gastrostomy status; Z66 Do not resuscitate
CPT/HCPCS: 99310

== ENCOUNTER 2017-12-31 10:45 | Outpatient (CLI) | payer MEDICARE ==
--- NOTE | 2017-12-31 14:48 | CONSULTATION NOTE ---
Palliative Care Follow Up - Referral Referring Provider: Dr. Kamran Balderrama Time of Visit: [phone] Referral setting: [facility] Referral Reason: Progressive Nuclear Palsy - Information Sources Records reviewed: RN notes reviewed, Previous records reviewed History/Review of Systems obtained from: Patient, Family (spoke with sister Louie Barragan), Caregiver (Spoke with caregiver Ruben) Exam limitations: Clinical condition (some STM issues; speech getting more difficult to follow) - History of Present Illness Update Brief HPI Update: This is a jose 72-year-old woman with progressive supranuclear palsy, [facility] the [facility], this is related to increased care needs and support for her tube feedings. She does continue to have slow decline, increased vision changes, increased time in bed secondary to fatigue, progressive contractures, and more difficulty with communicating. She continues to remain weight neutral no recent infections, reports her pain is well controlled on her current regimen with hydrocodone, this is mostly bilateral shoulder pain and some wrist pain. She denies any further difficulty with her ears, denies depression, no identified concerns from her caregiver are sister. Social History - Living Situation Living arrangement: long term Support System: Her sisters Louie continues to visit her on a regular basis, she does have paid caregiving to supplement her current situation by Ruben, she provides some personal care as well as socialization. Her ex- continues to visit her on a regular basis, Mohinder. He does take her out from time to time. Medications/Allergies - Medications Home Medications: Ambulatory Orders Medication Instructions Recorded Confirmed Losartan [Cozaar] 12.5 mg PEG DAILY 06/03/13 12/31/17 Brimonidine 0.2% Ophth Drops 1 drops EACHEYE BID 11/12/16 12/31/17 [Alphagan P 0.2% Ophth Drops] Latanoprost 0.005% Ophth Drops 1 drops EACHEYE DAILY 11/12/16 12/31/17 [Xalatan Ophth Drops] Acetaminophen 500 mg PEG Q6HR PRN 03/28/17 12/31/17 Bisacodyl Supp [Dulcolax Supp] 10 mg [place] DAILY PRN 03/28/17 12/31/17 Escitalopram Oxalate 10 mg PEG DAILY 03/28/17 12/31/17 HYDROcod/ACETAM 5/325 [[place] 5/325] 2.5 mg PEG Q8HR PRN 03/28/17 12/31/17 Loperamide HCl [Loperamide] 10 ml PEG Q6HR PRN 03/28/17 12/31/17 Multivitamin W/Minerals [Theragran 10 ml PEG DAILY 03/28/17 12/31/17 M] Polyethylene Glycol 3350 [Miralax] 17 gm PEG DAILY 03/28/17 12/31/17 HYDROcod/ACETAM 5/325 [[place] 5/325] 2.5 mg PEG Q8HR PRN 05/23/17 12/31/17 Ondansetron [Zuplenz] 8 mg PEG Q8HR PRN 05/23/17 12/31/17 Senna [Senokot] 8.6 mg PEG .EVERY OTHER DAY 07/15/17 12/31/17 Omeprazole Magnesium [Prilosec] 20 mg PEG BID 08/23/17 12/31/17 - Allergies Allergies/Adverse Reactions: Allergies Allergy/AdvReac Type Severity Reaction Status Date / Time Iodinated Contrast- Oral and Allergy Severe Respiratory Verified 08/07/17 12:35 IV Dye [Iodinated Contrast Media - IV Dye] bee pollen [Bee Pollen] Allergy Hives Verified 08/07/17 12:35 morphine AdvReac Intermediate Hallucinati Verified 08/07/17 12:35 ons Review of Systems - Constitutional Constitutional: reports: Fatigue (patient reports more comfortable in bed; needing more rest periods), Weight stable (146.3 (10 pounds in 6 months, but no change since September)) - Eyes Eyes: reports: Vision loss, Dipolpia, Corrective lenses - Ears, Nose & Throat Ears, Nose & Throat: reports: Dry mouth. denies: Ear pain - Cardiovascular Cardiovascular: reports: Decr. exercise tolerance. denies: Chest pain - Respiratory Respiratory: reports: Cough (intermittent but reports no difficulties managing oral secretions), SOB with exertion - Gastrointestinal Gastrointestinal: denies: Reflux/heartburn - Genitourinary Genitourinary: reports: Incontinence. denies: Dysuria - Musculoskeletal Musculoskeletal: reports: Stiffness, Limited range of motion (wrist/shoulder), Transfer issues (up in wheelchair;pivot transfer with much cueing) - Integumentary Integumentary: reports: Dryness. denies: Rash, Pruritis - Neurological Neurological: reports: Memory problems, Slurred speech (speech getting more difficult) - Psychiatric Psychiatric: reports: Hallucinations (occasional). denies: Depression, Anxiety - Endocrine Endocrine: reports: Diabetes type 2 (blood sugars normal range) - Hematologic/Lymphatic Hematologic/Lymphatic: reports: Recurrent infections (hx of UTIs) - All Other Systems All Other Systems: reports: Reviewed and negative Physical Exam - Vital Signs Temperature: 96.9 C Pulse Rate: 59 Respiratory Rate: 18 O2 Saturation: 92 (ra @ rest) Blood Pressure: 98/64 - Physical Exam General Appearance: positive: No acute distress Eyes Bilateral: positive: Normal inspection ENT: positive: No signs of dehydration, Other (limited ability to open mouth). negative: Pharyngeal erythema, Oral lesions Neck: positive: Stiff neck (hyperextended; unable to straighten) Cardiovascular: positive: Regular rate & rhythm Respiratory: positive: Diminished in bases. negative: Wheezes, Rales, Rhonchi Abdomen: positive: Non-tender, Soft, Nml bowel sounds, Other (PEG tube) Skin: positive: Pallor Extremities: positive: No pedal edema Neurologic/Psychiatric: positive: Mood/affect nml, Disoriented to time Palliative Care - POLST Patient has POLST: Yes POLST Status: DNR, Selective Treatment Pain: Pain unchanged, Location (bilateral shoulder pain controlled with low dose hydrocodone TID) Tiredness/Fatigue: Moderate (4-6) Drowsiness/Sedation: Mild (1-3) Nausea: None Depression: None Anxiety: None Dyspnea: None Sleep: Sleeps well Constipation: Yes, Opoid induced, Managed Feelings of wellbeing/Perceived Quality of Life: Fair, Acceptable, No change Performance Status: Patient dependent on tube feedings, for all ADLs and personal care as well as toileting. Patient is spending more time in bed, some increased contractures, and decreased activity tolerance. Does attribute some of this to increased fatigue and more comfortable laying down particularly on her neck. - Palliative Care Discussion: Patient reports she has no worries, she is denying any kind of depression. She is more difficult to engage in conversation and more difficult for her to initiate questions. She is more than willing to answer questions unclear if this is energy or having increased trouble with her short-term memory. She still has a jose sense of humor, is getting visits from the palliative marine underwriter, denies any existential or current distress. Impression and Recommendations - Palliative Care Impression: This is a jose 72-year-old woman with progressive supranuclear palsy, continued to have very slow functional and cognitive decline. She does present today with increased difficulty with communication, increased fatigue, but remains satisfied with her current quality of life and no significant concerns. Palliative care to continue ongoing support to care team, until transition to hospice appropriate. Recommendations/Counseling Done: 1. PSP. Patient does have ongoing decline but this is slow both functional and cognitive. Patient remains dependent on tube feedings, weight neutral, no recent infections, skin breakdown, or falls. 2. Acute on chronic pain bilateral shoulders. Does report some increased discomfort in wrists. Given patient's history of severe GERD, I am hesitant to add any kind of anti-inflammatory. Patient reports currently satisfied with current regimen, declines need for titration upward. 3. Advanced care planning. Patient currently satisfied with support from palliative care team, caregiving situation with sister and caregiver Ruben, still continues to find quality of life, has a strong kalani. JAZMYNE ST in place. Will continue to follow with palliative care every 6-8 weeks, unless problems arise. Time Spent: 30 minutes with greater than 50% of this done in counseling with patient regarding current symptom burden, quality of life issues, and coordination of care with staff and anticipatory guidance with sister.
== END 2017-12-31 10:46 | disposition home or self-care (01) ==
LOC: PC 10:45
PROVIDERS: ATTEND Nurse Practitioner Adult Health
DX: Z51.5 Encounter for palliative care (principal); G23.1 Progressive supranuclear ophthalmoplegia [Steele-Richardson-Olszewski]; M25.511 Pain in right shoulder; M25.512 Pain in left shoulder; G89.29 Other chronic pain; K59.03 Drug induced constipation; T40.2X5A Adverse effect of other opioids, initial encounter; Z93.1 Gastrostomy status; Z79.891 Long term (current) use of opiate analgesic; Z66 Do not resuscitate
CPT/HCPCS: 99309

== ENCOUNTER 2018-02-07 11:38 | Outpatient (CLI) | payer MEDICARE ==
--- NOTE | 2018-02-07 13:42 | CT Report ---
CT ABDOMEN AND PELVIS WITHOUT CONTRAST: 02/07/2018 CLINICAL INDICATION: Abdominal mass. TECHNIQUE: Axial CT images of the abdomen and pelvis were obtained without intravenous contrast, due to the patient's contrast allergy. Oral contrast was administered via the indwelling feeding tube. COMPARISON: No previous CT is available for comparison. FINDINGS: Limited evaluation of the lung bases is unremarkable. ABDOMEN: Feeding tube terminates in the stomach. Allowing for the lack of intravenous contrast enhancement, the liver, spleen, pancreas and adrenal glands appear unremarkable. The kidneys demonstrate cortical cysts. The gallbladder is not dilated. No bowel dilatation, free gas, or free fluid is present. No abdominal adenopathy is appreciated. PELVIS: There is a right spigelian hernia, containing nonobstructed loops of bowel. Postoperative changes are seen in the right lower quadrant. No pelvic adenopathy or free fluid is present. Osseous structures demonstrate degenerative changes. IMPRESSION: RIGHT SPIGELIAN HERNIA, CONTAINING NONOBSTRUCTED LOOPS OF BOWEL. NO OTHER EVIDENT ABDOMINAL MASS IS APPRECIATED. CT DOSE REDUCTION STATEMENT In accordance with CT protocol optimization, one or more of the following dose reduction techniques were utilized for this exam: automated exposure control, adjustment of mA and/or KV based on patient size, or use of iterative reconstructive technique. TD: 02/07/2018 13:35
== END 2018-02-07 11:39 | disposition home or self-care (01) ==
LOC: DI 11:38
PROVIDERS: ATTEND Family Medicine
DX: R19.00 Intra-abdominal and pelvic swelling, mass and lump, unspecified site (principal); K43.9 Ventral hernia without obstruction or gangrene
CPT/HCPCS: 74176

== ENCOUNTER 2018-02-12 14:10 | Outpatient (CLI) | payer MEDICARE ==
--- NOTE | 2018-02-12 17:25 | CONSULTATION NOTE ---
Palliative Care Follow Up - Referral Referring Provider: Dr. 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 She most recently was identified to have a "abdominal mass", she does have a known hernia, but there was some concern for tenderness and discomfort. Though when followed up on patient was having no pain, nausea vomiting, or distress. Her primary care provider did order her a CT of the abdomen and pelvis, and it did confirm she has her right Spigelian hernia, containing nonobstructed loops of bowel. On exam. It is easily reducible, it is uncomfortable with deep palpation, patient does not have any pain at rest. She does continue to have regular bowel movements, reports it rarely bothers her. Her abdomen is soft, she is normal bowel tones, Arturo to be in a good mood today. She continues to receive tube feedings with remaining weight neutral at around 148. Patient does continue to have some slow decline, she does identify increased vision changes, some fatigue, she does like to be in her bed, this is where she is most comfortable and also feels most safe. She is up in the wheelchair today though, she continues with development of contractures and spit particularly in her shoulders and elbows wrists. She has had 3 recent falls, without any acute injury. Patient does wonder what is going to happen next, but denies any distress, depression, or significant fears. Her voice is getting quite soft, she is speaking just in few words not full sentences, most of her interaction is with yes nose and short answers. She denies any increase choking of difficulty with secretions, and her lungs are clear, this will be her highest risk factor as far as future decline Social History - Living Situation Living arrangement: [facility] Support System: Has paid jennifer Miranda several hours a week for personal care/socialization; sister visits regularly and oversees care; ex- Mohinder visits weekly Medications/Allergies - Medications Home Medications: Ambulatory Orders Medication Instructions Recorded Confirmed Losartan [Cozaar] 12.5 mg PEG DAILY 06/03/13 12/31/17 Brimonidine 0.2% Ophth Drops 1 drops EACHEYE BID 11/12/16 12/31/17 [Alphagan P 0.2% Ophth Drops] Latanoprost 0.005% Ophth Drops 1 drops EACHEYE DAILY 11/12/16 12/31/17 [Xalatan Ophth Drops] Acetaminophen 500 mg PEG Q6HR PRN 03/28/17 12/31/17 Bisacodyl Supp [Dulcolax Supp] 10 mg [place] DAILY PRN 03/28/17 12/31/17 Escitalopram Oxalate 10 mg PEG DAILY 03/28/17 12/31/17 HYDROcod/ACETAM 5/325 [Dover 5/325] 2.5 mg PEG Q8HR PRN 03/28/17 12/31/17 Loperamide HCl [Loperamide] 10 ml PEG Q6HR PRN 03/28/17 12/31/17 Multivitamin W/Minerals [Theragran 10 ml PEG DAILY 03/28/17 12/31/17 M] Polyethylene Glycol 3350 [Miralax] 17 gm PEG DAILY 03/28/17 12/31/17 HYDROcod/ACETAM 5/325 [Dover 5/325] 2.5 mg PEG Q8HR PRN 05/23/17 12/31/17 Ondansetron [Zuplenz] 8 mg PEG Q8HR PRN 05/23/17 12/31/17 Senna [Senokot] 8.6 mg PEG .EVERY OTHER DAY 07/15/17 12/31/17 Omeprazole Magnesium [Prilosec] 20 mg PEG BID 08/23/17 12/31/17 - Allergies Allergies/Adverse Reactions: Allergies Allergy/AdvReac Type Severity Reaction Status Date / Time Iodinated Contrast- Oral and Allergy Severe Respiratory Verified 08/07/17 12:35 IV Dye [Iodinated Contrast Media - IV Dye] bee pollen [Bee Pollen] Allergy Hives Verified 08/07/17 12:35 morphine AdvReac Intermediate Hallucinati Verified 08/07/17 12:35 ons Review of Systems - Constitutional Constitutional: reports: Fatigue, Weight stable (remaining weight neutral around 148) - Eyes Eyes: reports: Vision loss (feels is worsening) - Ears, Nose & Throat Ears, Nose & Throat: reports: Hearing loss, Dry mouth, Other (difficult to do oral care with loss of ability to open mouth more than 1-2 cm) - Cardiovascular Cardiovascular: denies: Chest pain - Respiratory Respiratory: denies: Cough - Gastrointestinal Gastrointestinal: denies: Abdominal pain, Constipation, Reflux/heartburn - Genitourinary Genitourinary: reports: Incontinence - Musculoskeletal Musculoskeletal: reports: Stiffness, Limited range of motion, Muscle weakness, Joint pain (denies increase in pain; feels currrent medication working declines need for increase), Transfer issues (patient can be impulsive and stand independently; led to one of her falls) - Integumentary Integumentary: reports: Dryness - Neurological Neurological: reports: General weakness, Memory problems - Psychiatric Psychiatric: reports: Hallucinations. denies: Depression - Endocrine Endocrine: reports: Diabetes type 2 (blood sugars in good range) - Hematologic/Lymphatic Hematologic/Lymphatic: reports: Recurrent infections (hx of UTI's non recently) - All Other Systems All Other Systems: reports: Reviewed and negative Physical Exam - Vital Signs Temperature: 96.5 C Pulse Rate: 63 Respiratory Rate: 18 O2 Saturation: 95 (ra @ rest) Blood Pressure: 122/72 - Physical Exam General Appearance: positive: No acute distress, Alert Eyes Bilateral: positive: Conjunctivae nml, Other (needing to have me closer to talk/see face) ENT: negative: Pharyngeal erythema Neck: positive: Stiff neck (more acute angle of back head tilt) Cardiovascular: positive: Regular rate & rhythm Respiratory: positive: Breath sounds nml, Diminished in bases, Other (difficult for her to take deep breath; no cough during visit) Abdomen: positive: Soft, Nml bowel sounds, Tenderness (with deep palpation over hernia area; easily reduced; soft bulge) Skin: positive: Pallor Extremities: positive: No pedal edema Neurologic/Psychiatric: positive: Mood/affect nml, Disoriented to time, Weakness , Slurred/abnml speech Palliative Care - POLST Patient has POLST: Yes POLST Status: DNR, Selective Treatment Pain: Pain unchanged, Location (bilateral shoulders/some wrist) Sleep: Sleeps well Constipation: Yes, Opoid induced, Managed Feelings of wellbeing/Perceived Quality of Life: Fair, Acceptable Performance Status: Patient is dependent for all ADLs, does need assistance with toileting, she has a pivot transfer though this is becoming more difficult with her balance and eyesight. She does participate in the activity group exercise when she is able to get up and ready. - Palliative Care Discussion: Discussion with patient is becoming more difficult as her communication is more compromised. We did review the findings of her scan reassured hernia, we will watch it and do not expect any complications. When asked what she worries about most, It is her ex- Mohinder. When followed up with sister Louie, does report he is having some increased health problems. We both suspect that communication is quite limited given his difficulty hearing. Recently had a birthday, does perceive herself as worsening, denies she is fearful. Patient does have a great kalani, he does have some intermittent confusion and hallucinations so unable to discern her current understanding of the severity of her illness and what she anticipates. She continues to find her quality of life acceptable at this point in time, we will continue to monitor for decline and revisit goals as indicated. Results - Lab Results Lab and Imaging Results: Reviewed imaging; no current concern; Impression and Recommendations - Palliative Care Impression: This is a jose 73-year-old woman with progressive super nuclear palsy, continues to have a very slow functional and cognitive decline. She does present today with increased difficulty with communication, and more limitations in the context of her vision, but remains without acute signs or symptoms of depression or anxiety and satisfied with her current quality of life. Palliative care to continue provide ongoing support to care team, until transition to hospice is appropriate Recommendations/Counseling Done: 1. Spiglean Hernia. Of note in [employer] 20% of these hernias go on to become incarcerated. Patient without any acute signs or symptoms, tenderness, or residual pain. Given patient's frailty, and high risk surgical candidate, will continue to watch and monitor and patient not doing any activity of concern to worsen status or pressure. Reviewed findings with patient and sister. 2.PSP. Patient continues to have very slow decline, both functional and cognitive. She does remain dependent on tube feedings, weight neutral, no recent infections, skin breakdown, she has had a several falls over the last few weeks. She certainly could have severe sequela given her fragile status from fall, the patient tends to be impulsive, plus is having increased balance and lower extremity weakness. 3. Chronic bilateral shoulder pain. Patient currently satisfied with regimen, declines any need for titration upward, she does have increased contractures noted. 4. Advanced care planning. Patient currently satisfied with support from palliative care team, continues to find quality of life, has a strong kalani. JAZMYNE ST in place. Sister does recognize her fragility, will continue with palliative care every 6-8 weeks unless problems arise. Time Spent: 50 minutes with greater than 50% of this done in counseling coordination of care with clinical staff and follow-up with sister regarding anticipatory guidance
== END 2018-02-12 14:11 | disposition home or self-care (01) ==
LOC: PC 14:10
PROVIDERS: ATTEND Nurse Practitioner Adult Health
DX: Z51.5 Encounter for palliative care (principal); K43.9 Ventral hernia without obstruction or gangrene; G23.1 Progressive supranuclear ophthalmoplegia [Steele-Richardson-Olszewski]; M25.512 Pain in left shoulder; M25.511 Pain in right shoulder; G89.29 Other chronic pain; M24.512 Contracture, left shoulder; M24.511 Contracture, right shoulder; M24.522 Contracture, left elbow; M24.521 Contracture, right elbow; M24.532 Contracture, left wrist; M24.531 Contracture, right wrist; E11.9 Type 2 diabetes mellitus without complications; Z96.89 Presence of other specified functional implants; Z91.81 History of falling; Z66 Do not resuscitate
CPT/HCPCS: 99310

== ENCOUNTER 2018-02-18 09:00 | Outpatient (CLI) | payer MEDICARE ==
[2018-02-18 16:22] LABS: BASOPHILS % (AUTO) 0.6 %; EOSINOPHILS # (AUTO) 0.2 10^3/uL (0.0-0.7); EOSINOPHILS % (AUTO) 4.8 %; HGB - HEMOGLOBIN 13.7 g/dL (12.0-16.0); LYMPHOCYTES # (AUTO) 0.9 10^3/uL (1.5-3.5); LYMPHOCYTES % (AUTO) 23.2 %; MEAN CORPUSCULAR VOLUME 91.3 fL (81.0-99.0); MEAN PLATELET VOLUME 7.8 fL (7.9-10.8); MONOCYTES # (AUTO) 0.6 10^3/uL (0.0-1.0); MONOCYTES % (AUTO) 14.2 %; NEUTROPHILS # (AUTO) 2.3 10^3/uL (1.5-6.6); NEUTROPHILS % (AUTO) 57.2 %; PLT - PLATELET COUNT 228 10^3/uL (130-450); RED BLOOD COUNT 4.41 10^6/uL (4.20-5.40); RED CELL DISTRIBUTION WIDTH 12.6 % (12.0-15.0)
[2018-02-18 16:31] LABS: CALCIUM 9.2 mg/dL (8.5-10.3); CREATININE 0.7 mg/dL (0.4-1.0)
== END 2018-02-18 09:01 | disposition home or self-care (01) ==
LOC: LAB.R 09:00
DX: Z79.899 Other long term (current) drug therapy (principal)
CPT/HCPCS: 80048; 85025

== ENCOUNTER 2018-02-18 11:15 | Outpatient (CLI) | payer MEDICARE ==
--- NOTE | 2018-02-18 19:44 | CONSULTATION NOTE ---
Palliative Care Follow Up - Referral Referring Provider: Dr. Kamran Traylor Time of Visit: 115-1200 Referral setting: Care Home Facility Referral Reason: Cough/Wheezing - Information Sources Records reviewed: Previous records reviewed History/Review of Systems obtained from: Patient, Caregiver (clinical staff) Exam limitations: Clinical condition (patient with increased difficulty with communication; poor STM recall) - History of Present Illness Update Brief HPI Update: This is a jose 73-year-old woman with progressive supranuclear palsy, she is currently living in a fdc, this is related needed to her increased care needs and support for her tube feedings. I was asked to see her as she has developed a cough and wheezing in the last 24-48 hrs. They have used some Tussin DM with some decrease in her distress, unfortunately with patient's disease process she is unable to produce an effective cough, and the process is more or expelling of air to clear her airways. She does complain of cough when asked, denies shortness of breath or respiratory distress, but is finding the cough uncomfortable. She does have expiratory wheezing on the left. And she is diminished in the bases. She is afebrile at this point in time, nor tachycardic, But given her high risk of pneumonia it is of concern. Staff are unable to identify any specific episode of choking, The patient has tube feeding , patient still needs to manage her oral secretions. In consult with her primary care provider, Dr. Balderrama, will go ahead and draw labs, get chest x-ray , and start her on antibiotics. Social History - Living Situation Living arrangement: half-way Medications/Allergies - Medications Home Medications: Ambulatory Orders Medication Instructions Recorded Confirmed Losartan [Cozaar] 12.5 mg PEG DAILY 06/03/13 02/18/18 Brimonidine 0.2% Ophth Drops 1 drops EACHEYE BID 11/12/16 02/18/18 [Alphagan P 0.2% Ophth Drops] Latanoprost 0.005% Ophth Drops 1 drops EACHEYE DAILY 11/12/16 02/18/18 [Xalatan Ophth Drops] Acetaminophen 500 mg PEG Q6HR PRN 03/28/17 02/18/18 Bisacodyl Supp [Dulcolax Supp] 10 mg [place] DAILY PRN 03/28/17 02/18/18 Escitalopram Oxalate 10 mg PEG DAILY 03/28/17 02/18/18 HYDROcod/ACETAM 5/325 [Vulcan 5/325] 2.5 mg PEG Q8HR PRN 03/28/17 02/18/18 Loperamide HCl [Loperamide] 10 ml PEG Q6HR PRN 03/28/17 02/18/18 Multivitamin W/Minerals [Theragran 10 ml PEG DAILY 03/28/17 02/18/18 M] Polyethylene Glycol 3350 [Miralax] 17 gm PEG DAILY 03/28/17 02/18/18 HYDROcod/ACETAM 5/325 [Vulcan 5/325] 2.5 mg PEG Q8HR PRN 05/23/17 02/18/18 Ondansetron [Zuplenz] 8 mg PEG Q8HR PRN 05/23/17 02/18/18 Senna [Senokot] 8.6 mg PEG .EVERY OTHER DAY 07/15/17 02/18/18 Omeprazole Magnesium [Prilosec] 20 mg PEG BID 08/23/17 02/18/18 Amox/Clav 875/125 [Augmentin 1 tab PEG BID MDD for 7 days 02/18/18 02/18/18 875/125] Guaifenesin/Dextromethorphan 5 ml PEG TID MDD 7 days 02/18/18 02/18/18 [Tussin Dm Cough Syrup] Saccharomyces Boulardii [Florastor] 250 mg PO BID MDD for 14 days 02/18/1802/18 - Allergies Allergies/Adverse Reactions: Allergies Allergy/AdvReac Type Severity Reaction Status Date / Time Iodinated Contrast- Oral and Allergy Severe Respiratory Verified 08/07/17 12:35 IV Dye [Iodinated Contrast Media - IV Dye] bee pollen [Bee Pollen] Allergy Hives Verified 08/07/17 12:35 morphine AdvReac Intermediate Hallucinati Verified 08/07/17 12:35 ons Review of Systems - Constitutional Constitutional: reports: Weight stable - Eyes Eyes: reports: Vision loss - Respiratory Respiratory: reports: Cough (noted by staff for about 24 hours; sister noted some cough Vince night when seen), Wheezing - Gastrointestinal Gastrointestinal: reports: Other (TF). denies: Abdominal pain - Genitourinary Genitourinary: reports: Incontinence. denies: Dysuria - Musculoskeletal Musculoskeletal: reports: Stiffness, Muscle weakness, Transfer issues (max assist transfers to wheelchair; up a couple of times a day; prefers laying in bed more comfortable) - Integumentary Integumentary: reports: Dryness - Neurological Neurological: reports: Slurred speech (increasing difficulty with communication) - Endocrine Endocrine: reports: Diabetes type 2 (blood sugars fine) - Hematologic/Lymphatic Hematologic/Lymphatic: reports: Recurrent infections (one hx tx in last few months aspiration; historically UTIs has been a while) - All Other Systems All Other Systems: reports: Other (limited ROS related to patient's ability to participate) Physical Exam - Vital Signs Temperature: 97.2 C Pulse Rate: 67 Respiratory Rate: 18 O2 Saturation: 95 (ra @ rest) Blood Pressure: 92/62 - Physical Exam General Appearance: positive: Mild distress, Anxious Eyes Bilateral: positive: Other (tipped back to view me; more trouble seeing/ identifying people) ENT: positive: Other (limited ability to open mouth; contracture) Neck: positive: Trachea midline, Stiff neck (head/neck tipped back; unable to soften or tilt forward) Cardiovascular: positive: Regular rate & rhythm Respiratory: positive: Diminished in bases, Wheezes (expiratory wheezing on left side), Other (patient can't "cough" air explulsion with attempt to cough high pitched; denies distress but is bothersome;) Abdomen: positive: Non-tender, Soft, Other (no bulge in laying down; hernia reduced at time of visit) Skin: positive: Pallor, Dryness Extremities: positive: No pedal edema Neurologic/Psychiatric: positive: Weakness, Slurred/abnml speech, Other (unable to discern orientation; recognize myself; appears aware in [facility] but not clear if knows facility) Palliative Care - POLST Patient has POLST: Yes POLST Status: DNR, Selective Treatment Pain: Pain unchanged Tiredness/Fatigue: Moderate (4-6) Anxiety: Moderate (4-6) (cough somewhat distressing; does cause worry) Dyspnea: Mild (1-3) (denies respiratory distress; cough hard to manage) Constipation: Yes, Opoid induced, Managed - Palliative Care Discussion: Telephone call to Louie, patient's sister. Discussed current findings and Decision to treat in the context of comfort measure. Sister is aware of patient 's fragile status, she has had continued slow functional and cognitive decline. Very cognizant of patient's most likely end-of-life event will be infection. They do have family coming in a couple weekends, was hoping to be able to bring her home for family event, discussed will continue to weigh benefits and burdens closer to the time given that this is something that Katheryn usually enjoys. Impression and Recommendations - Palliative Care Impression: This is a 73-year-old woman with progressive supranuclear palsy who remains quite frail, and high risk for the sequela of events related to aspiration. She does present with cough and wheezing today, will go ahead and treat as well as obtained appropriate labs and chest x-ray. Palliative care to continue provide ongoing support to care team. Recommendations/Counseling Done: 1. Cough. Patient is started on Augmentin 875 mg/125 mg 1 twice daily 7 days , labs ordered CMP and BMP, as well as chest x-ray. Consult done with primary care provider regarding plan of care, she will follow-up with visit on Sunday. Called his sister regarding current findings and treatment plan, she is in agreement. Probiotics ordered Florastor 250 mg twice daily 14 days 2. Spigelian hernia. Patient without any tenderness, swelling, or distressed noted today. Will continue to monitor. 3. PSP. Patient continues to have very slow decline, both functional and cognitive. Concern remains with disease progression management of her oral secretions and aspiration risk, as noted today. 4. Advanced care planning. Patient does have a JAZMYNE ST in place, continues to remain quite fragile, decisions are made in the context of benefits and burdens with running her sister that primary decision maker Time Spent: Time spent 45 minutes with greater than 50% of this done and coordination of care with provider, clinical staff, sister, and anticipatory guidance
== END 2018-02-18 11:16 | disposition home or self-care (01) ==
LOC: PC 11:15
PROVIDERS: ATTEND Nurse Practitioner Adult Health
DX: Z51.5 Encounter for palliative care (principal); G23.1 Progressive supranuclear ophthalmoplegia [Steele-Richardson-Olszewski]; Z87.440 Personal history of urinary (tract) infections; K21.9 Gastro-esophageal reflux disease without esophagitis; R05 Cough; K43.9 Ventral hernia without obstruction or gangrene; R32 Unspecified urinary incontinence; E11.9 Type 2 diabetes mellitus without complications; Z66 Do not resuscitate; Z79.891 Long term (current) use of opiate analgesic; Z79.2 Long term (current) use of antibiotics
CPT/HCPCS: 99310

== ENCOUNTER 2018-02-27 10:30 | Outpatient (CLI) | payer MEDICARE ==
--- NOTE | 2018-02-27 15:26 | CONSULTATION NOTE ---
Palliative Care Follow Up - Referral Referring Provider: Dr. 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 She had developed a cough and a wheeze, she did have her chest x-ray, that showed azeem-hilar bronchitis. She had been started on Augmentin 875 mg/125 mg 1 tab twice a day 7 days and has just finished this. Did not make a significant difference in her cough but breath sounds improved, she has not progressed with fever, and her vital signs have remained stable.. Her breath sounds are clear in bases but does have upper airway rhonchi that appear more to do with unable to manage her oral secretions/ saliva. Staff reported continued cough, her cough is quite distressing in that she uses her vocal cords and tries to expel the air, at this point in time it is not efficient. She denies any distress, is just frequent and she is getting some upper chest discomfort with this. Her O2 sats are fine, but most likely is continuing to silently aspirate. Patient does do better in positioning with her head of bed up, unfortunately found her slithered down again, requested she be put up in the wheelchair to assist with her secretions. Social History - Living Situation Living arrangement: retirement Support System: Her sister Louie is her advocate, she does visit Quite often. She does have a paid caregiver Ruben who spends time with her as far as personal care and companionship as well. Louie is hoping to be able to take her out this weekend with her granddaughters, it is more difficult for patient to be transported out of facility. Medications/Allergies - Medications Home Medications: Ambulatory Orders Medication Instructions Recorded Confirmed Losartan [Cozaar] 12.5 mg PEG DAILY 06/03/13 02/27/18 Brimonidine 0.2% Ophth Drops 1 drops EACHEYE BID 11/12/16 02/27/18 [Alphagan P 0.2% Ophth Drops] Latanoprost 0.005% Ophth Drops 1 drops EACHEYE DAILY 11/12/16 02/27/18 [Xalatan Ophth Drops] Acetaminophen 500 mg PEG Q6HR PRN 03/28/17 02/27/18 Bisacodyl Supp [Dulcolax Supp] 10 mg ID DAILY PRN 03/28/17 02/27/18 Escitalopram Oxalate 10 mg PEG DAILY 03/28/17 02/27/18 HYDROcod/ACETAM 5/325 [Porter 5/325] 2.5 mg PEG Q8HR PRN 03/28/17 02/27/18 Loperamide HCl [Loperamide] 10 ml PEG Q6HR PRN 03/28/17 02/27/18 Multivitamin W/Minerals [Theragran 10 ml PEG DAILY 03/28/17 02/27/18 M] Polyethylene Glycol 3350 [Miralax] 17 gm PEG DAILY 03/28/17 02/27/18 HYDROcod/ACETAM 5/325 [Porter 5/325] 2.5 mg PEG Q8HR PRN 05/23/17 02/27/18 Ondansetron [Zuplenz] 8 mg PEG Q8HR PRN 05/23/17 02/27/18 Senna [Senokot] 8.6 mg PEG .EVERY OTHER DAY 07/15/17 02/27/18 Omeprazole Magnesium [Prilosec] 20 mg PEG BID 08/23/17 02/27/18 Guaifenesin/Dextromethorphan 5 ml PEG Q6HR PRN 02/18/18 02/27/18 [Tussin Dm Cough Syrup] Saccharomyces Boulardii [Florastor] 250 mg PO BID MDD for 14 days 02/18/1802/27 Hyoscyamine [Levsin] 0.125 mg SL Q4HR PRN MDD secretions 02/27/18 02/27/18 - Allergies Allergies/Adverse Reactions: Allergies Allergy/AdvReac Type Severity Reaction Status Date / Time Iodinated Contrast- Oral and Allergy Severe Respiratory Verified 08/07/17 12:35 IV Dye [Iodinated Contrast Media - IV Dye] bee pollen [Bee Pollen] Allergy Hives Verified 08/07/17 12:35 morphine AdvReac Intermediate Hallucinati Verified 08/07/17 12:35 ons Review of Systems - Constitutional Constitutional: reports: Fatigue. denies: Fever, Chills - Eyes Eyes: reports: Vision loss (continue to worsen) - Ears, Nose & Throat Ears, Nose & Throat: reports: Dry mouth - Cardiovascular Cardiovascular: reports: Chest pain (related to coughing per patient; worsens with cough effort) - Respiratory Respiratory: reports: Cough (continued frequent coughing; patient denies distress but more annoyance) - Gastrointestinal Gastrointestinal: reports: Other (on tube feedings). denies: Constipation, Bloody stools, Reflux/heartburn - Genitourinary Genitourinary: reports: Incontinence. denies: Dysuria - Musculoskeletal Musculoskeletal: reports: Transfer issues (max transfer assist; balance issues and anxiety; difficult following cuing; can shuffle few steps and bear weight) - Integumentary Integumentary: reports: Dryness, Other (PEG site) - Neurological Neurological: reports: General weakness, Memory problems, Slurred speech - Psychiatric Psychiatric: reports: Hallucinations (unclear if hallucinations or difficulty with interpreting environment). denies: Depression - Endocrine Endocrine: reports: Diabetes type 2 (bs wnl) - Hematologic/Lymphatic Hematologic/Lymphatic: reports: Recurrent infections (second respiriatory infection in several months) - All Other Systems All Other Systems: reports: Reviewed and negative Physical Exam - Vital Signs Temperature: 97.0 C Pulse Rate: 65 Respiratory Rate: 18 O2 Saturation: 95 (ra@ rest) Blood Pressure: 122/72 - Physical Exam General Appearance: positive: Mild distress (with cough). negative: Anxious, Lethargic Eyes Bilateral: positive: Normal inspection ENT: positive: Dry mucous membranes Neck: positive: Stiff neck (contracted extended;) Cardiovascular: positive: Regular rate & rhythm Respiratory: positive: Rhonchi (anteriorly upper airway;), Other (decreased throughout but clear lower lobes). negative: Wheezes Abdomen: positive: Soft, Nml bowel sounds, Other (soft right abd hernia- nontender) Skin: positive: Pallor Extremities: positive: No pedal edema, Other (right arm with severe contracture ; left mod) Neurologic/Psychiatric: positive: Slurred/abnml speech (voice weak more difficult to understand), Other (unable to confirm orientation; but recognized RN OUTPATIENT SURGERY and answered short questions regarding in the moment symptoms appropriately, no [facility] recall noted) Palliative Care - POLST Patient has POLST: Yes POLST Status: DNR, Selective Treatment Pain: Pain unchanged, Location (shoulders/arms) Constipation: Yes, Opoid induced, Managed Feelings of wellbeing/Perceived Quality of Life: Comment - Palliative Care Discussion: Patient denies being fearful regarding her coughing and choking, despite the quite annoying. She also complains of some discomfort with it. We discussed in the contacts as far as sharing information, most likely still has more to do with her disease, but continue to focus on trying to keep her comfortable. She continues to be quite jose in her responses, makes good eye contact, and does not seem in any acute distress or depressed. I did call her sister Louie, she confirms the same, that she still seems to enjoy despite her limited quality of life interacting with family, caregivers, and her environment. Louie is concerned though as far as patient taking another decline, she is acutely aware the seriousness of her illness, and that often respiratory issues are the cause for end-of-life. He patient does have her granddaughter is coming this weekend, we discussed at length patient does cough at times, but does appear to recover, would not make any difference if she were at home her home setting are here at the facility, it just takes time for her to clear her secretions and settle down. We did discuss will be trying some medication to see if can improve this , but does have side effects and concern will monitor best not to add to her confusion or her discomfort Impression and Recommendations - Palliative Care Impression: This is a 73-year-old woman with progressive supranuclear palsy remains quite fragile, and high risk for the sequela of events related to aspiration secondary to disease. She has been treated for acute bronchitis, but still has residual cough and choking. Unclear if patient is going to continue to improve , or if this is part of her decline. Focus continues to be on maximizing quality of life. Palliative care to provide support regarding symptom management and anticipatory guidance until transition to hospice Recommendations/Counseling Done: Cough. Patient has completed Augmentin, with little improvement. But no worsening of her condition. Her vital signs are stable she is afebrile. Her wheezing has resolved, but continues to have upper anterior rhonchi secondary to difficulty clearing secretions. Consult with pharmacist regarding anticholinergic with the side effects, settled on hyoscyamine 0.125 mg odt eveery 4 hours. Instruction given to staff to monitor for signs or symptoms of confusion her urinary retention. Goal is to decrease oral secretions to manage her cough more effectively. Cough syrup at this point in time most likely to not be of benefit.Did request patient does have oral suction machine that it be set up in her room in case of acute distress. 2. PSP. Patient continues to have slow decline, both functional and cognitive. Concern relating difficulty managing oral secretions and aspiration risk are related to disease progression and not acute illness, will monitor and evaluate response. 3. Advanced care planning. Patient does have JAZMYNE ST in place, Sister aware of the fragility of situation. She perceives her sister still enjoying her current quality of life, though it is certainly limited and there is concern about her pending decline. Did follow-up with Dr. Kamran Balderrama her PCP given current situation and agreement with current care plan. Time Spent: 45 minutes with good than 50% of this done in Counseling and coordination of care with clinical staff PCP sister and anticipatory guidance provided
== END 2018-02-27 10:31 | disposition home or self-care (01) ==
LOC: PC 10:30
PROVIDERS: ATTEND Nurse Practitioner Adult Health
DX: Z51.5 Encounter for palliative care (principal); R05 Cough; G23.1 Progressive supranuclear ophthalmoplegia [Steele-Richardson-Olszewski]; E11.9 Type 2 diabetes mellitus without complications; Z93.1 Gastrostomy status; Z66 Do not resuscitate
CPT/HCPCS: 99310

== ENCOUNTER 2018-03-11 11:45 | Outpatient (CLI) | payer MEDICARE ==
--- NOTE | 2018-03-11 14:53 | CONSULTATION NOTE ---
Palliative Care Follow Up - Referral Referring Provider: Dr. Ceci Balderrama/transitioning to Dr. Andrew Alberts Time of Visit: [phone] Referral setting: [facility] Facility Referral Reason: PSP/Goals of Care - Information Sources Records reviewed: RN notes reviewed, Previous records reviewed History/Review of Systems obtained from: Patient, Family (spoke with sister Louie Barragan before and during visit) Exam limitations: Clinical condition (Patient with increasing difficulty communicating, difficult to understand if able to understand all of conversation. Patient does make eye contact and engages with 911 OPERATOR) - History of Present Illness Update Brief HPI Update: This is a jose 73-year-old woman with progressive supranuclear palsy, whom I have been seen since September 2016. She has had progressive decline, including increased difficulty with dysphagia, necessitating a placement of a feeding tube when swallowing was too difficult and resulted in choking on a regular basis. This occurred on 05/01/2017, she had previously been at [facility], but needed to be in a higher level of care, that [facility]. Over the last 18 months she has become progressively more wheelchair bound, and over the last few weeks has been spending more time in bed. She is a pivot transfer into her tilt in space wheelchair, she does have significant difficulty with her vision, so her neck is permanently tilted back. She does have increased upper extremity contractures particularly on the right, limited range of motion in her shoulders. She is able to move her legs spontaneously, and follow commands. She is incontinent of urine, occasionally incontinent of stool. This is more to do with her ability to communicate with staff. The greatest concern at this point in time, is her inability to manage her oral secretions. She did present with most likely aspiration, her chest x-ray showed perihilar bronchitis. She did get an course of Augmentin, with some improvement. Unfortunately when she coughs, she is not using a cough effort but asked avulsion of air through her vocal cords, this can be be quite distressing to staff and surrounding residents. She has had very little response to cough medicine, I did start her on Hyoscyamine 0.125 mg ODT every 4 hours, they have used it with some success, though it is quite drying. The medication administration sheet shows only once a day the last few days. She does report she feels "lousy", she denies being distressed by the coughing, though appears quite fatigued. She denies any increase in pain or chest discomfort, she denies shortness of breath. Social History - Living Situation Living arrangement: intermediate Support System: Her sister Louie Lopez is her DPOAE, she does come visit several times a week, she does have a paid caregiver Ruben who also provide socialization and some personal care. She has been at the [facility] since April 2017, her increasing difficulty with communication makes it more difficult for staff to care for her. Medications/Allergies - Medications Home Medications: Ambulatory Orders Medication Instructions Recorded Confirmed Losartan [Cozaar] 12.5 mg PEG DAILY 06/03/13 03/11/18 Brimonidine 0.2% Ophth Drops 1 drops EACHEYE BID 11/12/16 03/11/18 [Alphagan P 0.2% Ophth Drops] Latanoprost 0.005% Ophth Drops 1 drops EACHEYE DAILY 11/12/16 03/11/18 [Xalatan Ophth Drops] Acetaminophen 500 mg PEG Q6HR PRN 03/28/17 03/11/18 Bisacodyl Supp [Dulcolax Supp] 10 mg MD DAILY PRN 03/28/17 03/11/18 Escitalopram Oxalate 10 mg PEG DAILY 03/28/17 03/11/18 HYDROcod/ACETAM 5/325 [Wake 5/325] 2.5 mg PEG Q8HR PRN 03/28/17 03/11/18 Loperamide HCl [Loperamide] 10 ml PEG Q6HR PRN 03/28/17 03/11/18 Multivitamin W/Minerals [Theragran 10 ml PEG DAILY 03/28/17 03/11/18 M] Polyethylene Glycol 3350 [Miralax] 17 gm PEG DAILY 03/28/17 03/11/18 HYDROcod/ACETAM 5/325 [Wake 5/325] 2.5 mg PEG Q8HR PRN 05/23/17 03/11/18 Ondansetron [Zuplenz] 8 mg PEG Q8HR PRN 05/23/17 03/11/18 Senna [Senokot] 8.6 mg PEG .EVERY OTHER DAY 07/15/17 03/11/18 Omeprazole Magnesium [Prilosec] 20 mg PEG BID 08/23/17 03/11/18 Guaifenesin/Dextromethorphan 5 ml PEG Q6HR PRN 02/18/18 03/11/18 [Tussin Dm Cough Syrup] Hyoscyamine [Levsin] 0.125 - 0.25 mg SL Q4HR PRN MDD 02/27/18 03/11/18 secretions - Allergies Allergies/Adverse Reactions: Allergies Allergy/AdvReac Type Severity Reaction Status Date / Time Iodinated Contrast- Oral and Allergy Severe Respiratory Verified 08/07/17 12:35 IV Dye [Iodinated Contrast Media - IV Dye] bee pollen [Bee Pollen] Allergy Hives Verified 08/07/17 12:35 morphine AdvReac Intermediate Hallucinati Verified 08/07/17 12:35 ons Review of Systems - Constitutional Constitutional: reports: Fatigue, Weight stable (148.5). denies: Fever, Chills - Eyes Eyes: reports: Vision loss (worsening;) - Ears, Nose & Throat Ears, Nose & Throat: reports: Dry mouth, Other (difficulty opening mouth; jaw tight). denies: Ear pain - Cardiovascular Cardiovascular: denies: Chest pain, Edema - Respiratory Respiratory: reports: Cough. denies: Sputum production, SOB at rest - Gastrointestinal Gastrointestinal: reports: Other (on Jevity 1.2 ml/hr). denies: Constipation, Diarrhea, Nausea, Reflux/heartburn - Genitourinary Genitourinary: reports: Incontinence. denies: Dysuria - Musculoskeletal Musculoskeletal: reports: Stiffness, Limited range of motion, Muscle weakness, Transfer issues (pivot transfers into tilt n space wheelchair) - Integumentary Integumentary: reports: Dryness - Neurological Neurological: reports: General weakness, Memory problems (fluctuating cognitive status; diff. to evaluate with worsening communication) - Psychiatric Psychiatric: reports: Hallucinations. denies: Depression, Anxiety - Endocrine Endocrine: reports: Diabetes type 2 (BS controlled) - Hematologic/Lymphatic Hematologic/Lymphatic: reports: Recurrent infections (last UTI Sep/recent tx for bronchitis with Augmentin) - All Other Systems All Other Systems: reports: Reviewed and negative Physical Exam - Vital Signs Temperature: 97.2 C Pulse Rate: 66 Respiratory Rate: 18 O2 Saturation: 95 (ra @ rest) Blood Pressure: 122/72 - Physical Exam General Appearance: positive: No acute distress, Other (appears fatigue; less "luster" and brightness from baseline) Eyes Bilateral: positive: Other (gaze downard) ENT: positive: Dry mucous membranes Neck: positive: Stiff neck (head contracted back and shoulders pulled up) Cardiovascular: positive: Regular rate & rhythm Respiratory: positive: Diminished in bases, Other (unable to take deep breaths in). negative: Wheezes, Rales, Rhonchi Abdomen: positive: Non-tender, Soft, Nml bowel sounds, Other (soft hernia without tenderness) Skin: positive: Pallor. negative: Pressure wound Extremities: positive: No pedal edema Neurologic/Psychiatric: positive: Disoriented to place, Disoriented to time, Weakness Palliative Care - POLST Patient has POLST: Yes POLST Status: DNR, Selective Treatment Pain: Pain unchanged, Location (bilateral shoulder pain/stiffness reports controlled on current regimen) Tiredness/Fatigue: Moderate (4-6) Drowsiness/Sedation: Mild (1-3) Nausea: None Depression: Mild (1-3) Anxiety: Moderate (4-6) Dyspnea: None Constipation: Yes, Opoid induced, Managed Feelings of wellbeing/Perceived Quality of Life: Worsening Performance Status: Patient spending more time in bed, this is where she is most comfortable. Staff do get her up several times a day in the chair, this does manage her secretions better. She does like to sit down the hallway. His total assistance with incontinence and toileting, bathing, and assistance with dressing and oral care. - Palliative Care Discussion: Patient with increased difficulty with communication, when asked how she felt she reported "lousy". We did discuss that her disease is getting worse, in somewhat of back and forth manner discussed that we are at a place of heart decisions, that things will continue to worsen, and concerned about her secretions. Introduced if patient were to need further intervention, most likely would need hospitalization and to be put on a machine for breathing, she would not be unable to communicate, and unlikely to [facility]. This would mean she would not be able to enjoy friends and family, and her current quality of life. We did discuss this in a variety of different ways , and we do have the ability to focus on comfort only, supporting her in her current environment, and when her time came allowing natural . As best I could tell in our conversation, this is what she was most interested in, she does have "great kalani", she found this quite comforting and reports she is not afraid. In follow-up with her sister, she does feel like enough of her is in there, and she can participate in the conversation. She has been very much participatory and choosing further interventions up to this point, but I shared she seemed more reticent as far as doing anything to change her current situation, including going to the hospital for further aggressive interventions that would not really results with improvement of her quality of life and take her away from her family. Did spend some time supporting Louie, she reports "I can see that and", up to this point in time she was quite aware of the seriousness of her illness, but is feeling much more vulnerable as Katheryn is declining. She reports she is quite self aware, I did offer the support of the forensic social worker or litigation specialist, she did decline at this point in time. I did share with her I felt that she would be better served by transitioning to hospice, if we can all be in agreement for her goals, she is open to this and willing for me to follow- up with the medical director of entertainment. Impression and Recommendations - Palliative Care Impression: This is a jose 73-year-old woman with progressive super nuclear palsy, who continues to demonstrate decline. She is continuing to have difficulty managing her oral secretions, continues with fluctuating cognition, and has had functional decline as well. Palliative care is been providing support for pain and symptom management, currently actively looking at transitioning to hospice. Recommendations/Counseling Done: 1. Cough. Patient with weak cough effort, has had some mild response to the hyoscyamine, will increase to 1-2 tabs every four hours. Encouraged to have patient up in wheelchair if having trouble managing secretions. Discussed both with patient and sister most likely not to improve much with our limited interventions, and most likely to worsen. Yakur suction at bedside as requested. Patient currently has had limited coughing spells though are fatiguing are not "scary" for patient. 2. Advanced Care planning. Lengthy attempt to have conversation, trying to weigh decision making capacity, appears to understand some of the conversation though often echos back phrases. Counseling regarding observed deterioration, concerns about managing secretions/cough/choking, and goals to focus on comfort vs aggresive interventions / hospitalization. Given the consequences if chose aggressive interventions and patient wanting to be here with family, agreed trusted decisions for focusing on comfort. This was communicated with her sister , given permission to pursue hospice referral if accepted by medical biller/coder. ADDENDUM: Case reviewed with Dr. Hay Villanueva, is willing to accept on hospice as long as goals are defined. This was communicated to Louie, agreed I would follow up with Katheryn at our visit next Sunday specifically for hospice support. Time Spent: 60 minutes with greater than 50% of this done in counseling with patient/follow up with SACHI/Louie, coordination of care with clinical staff/hospice.
== END 2018-03-11 11:46 | disposition home or self-care (01) ==
LOC: PC 11:45
PROVIDERS: ATTEND Nurse Practitioner Adult Health
DX: Z51.5 Encounter for palliative care (principal); R05 Cough; G23.1 Progressive supranuclear ophthalmoplegia [Steele-Richardson-Olszewski]; E11.9 Type 2 diabetes mellitus without complications; Z93.1 Gastrostomy status; Z99.3 Dependence on wheelchair; Z66 Do not resuscitate
CPT/HCPCS: 99310

== ENCOUNTER 2018-03-18 17:11 | Outpatient (CLI) | payer MEDICARE ==
--- NOTE | 2018-03-18 19:05 | CONSULTATION NOTE ---
Palliative Care Follow Up - Referral Referring Provider: Dr. Andrew Alberts recently from Dr. Balderrama Time of Visit: [id number] Referral setting: [facility] Facility Referral Reason: PSP/Goals of Care - Information Sources Records reviewed: RN notes reviewed, Previous records reviewed History/Review of Systems obtained from: Patient, Family (sister Louie; caregiver Clementina Briones) Exam limitations: Clinical condition (increase difficulty with communication;) - History of Present Illness Update Brief HPI Update: This is a jose 73-year-old woman with progressive supranuclear palsy, whom I have been seen since September 2016. She has had progressive decline, including increased difficulty with dysphagia, necessitating a placement of a feeding tube when swallowing was too difficult and resulted in choking on a regular basis. This occurred on 05/01/2017, she had previously been at [facility], but needed to be in a higher level of care, that she has been a resident at the intermediate since then. Over the last 18 months she has become progressively more wheelchair bound, and over the last few weeks has been spending more time in bed. She is a pivot transfer into her tilt in space wheelchair, she does have significant difficulty with her vision, so her neck is permanently tilted back. She does have increased upper extremity contractures particularly on the right, limited range of motion in her shoulders. She is able to move her legs spontaneously, and follow commands. She is incontinent of urine, occasionally incontinent of stool. The greatest concern at this point in time, is her increasing inability to manage her oral secretions. She did present with most likely aspiration a few weeks ago, her chest x-ray showed perihilar bronchitis. She did get an course of Augmentin, with some improvement. Unfortunately when she coughs, she is not using a cough effort but with propulsion of air through her vocal cords, this can be be quite distressing to staff and surrounding residents. She has had very little response to cough medicine, I did start her on Hyoscyamine 0.125 mg ODT every 4 hours, they have used it with some success, though it is quite drying. She has had some improvement with less secretions over the last few days , but in discussion with patient and sister, goals are to focus on comfort, and initiate hospice with patient's continued expected decline and limited life expectancy of less than six months given her decline over the last few months with decreased ability to manage secretions, more difficulty with communication , worsening vision, more fatigue, and agreement she wants to stay in current setting. Medications/Allergies - Medications Home Medications: Ambulatory Orders Medication Instructions Recorded Confirmed Losartan [Cozaar] 12.5 mg PEG DAILY 06/03/13 03/11/18 Brimonidine 0.2% Ophth Drops 1 drops EACHEYE BID 11/12/16 03/11/18 [Alphagan P 0.2% Ophth Drops] Latanoprost 0.005% Ophth Drops 1 drops EACHEYE DAILY 11/12/16 03/11/18 [Xalatan Ophth Drops] Acetaminophen 500 mg PEG Q6HR PRN 03/28/17 03/11/18 Bisacodyl Supp [Dulcolax Supp] 10 mg SC DAILY PRN 03/28/17 03/11/18 Escitalopram Oxalate 10 mg PEG DAILY 03/28/17 03/11/18 HYDROcod/ACETAM 5/325 [[place] 5/325] 2.5 mg PEG Q8HR PRN 03/28/17 03/11/18 Loperamide HCl [Loperamide] 10 ml PEG Q6HR PRN 03/28/17 03/11/18 Multivitamin W/Minerals [Theragran 10 ml PEG DAILY 03/28/17 03/11/18 M] Polyethylene Glycol 3350 [Miralax] 17 gm PEG DAILY 03/28/17 03/11/18 HYDROcod/ACETAM 5/325 [[place] 5/325] 2.5 mg PEG Q8HR PRN 05/23/17 03/11/18 Ondansetron [Zuplenz] 8 mg PEG Q8HR PRN 05/23/17 03/11/18 Senna [Senokot] 8.6 mg PEG .EVERY OTHER DAY 07/15/17 03/11/18 Omeprazole Magnesium [Prilosec] 20 mg PEG BID 08/23/17 03/11/18 Guaifenesin/Dextromethorphan 5 ml PEG Q6HR PRN 02/18/18 03/11/18 [Tussin Dm Cough Syrup] Hyoscyamine [Levsin] 0.125 - 0.25 mg SL Q4HR PRN MDD 02/27/18 03/11/18 secretions - Allergies Allergies/Adverse Reactions: Allergies Allergy/AdvReac Type Severity Reaction Status Date / Time Iodinated Contrast- Oral and Allergy Severe Respiratory Verified 08/07/17 12:35 IV Dye [Iodinated Contrast Media - IV Dye] bee pollen [Bee Pollen] Allergy Hives Verified 08/07/17 12:35 morphine AdvReac Intermediate Hallucinati Verified 08/07/17 12:35 ons Review of Systems - Constitutional Constitutional: reports: Fatigue, Weight stable. denies: Fever, Chills - Eyes Eyes: reports: Vision loss (worsening) - Ears, Nose & Throat Ears, Nose & Throat: reports: Dry mouth, Other (jaw becoming more tight; difficulty opening mouth for oral care; suction at bedside yakur tip) - Cardiovascular Cardiovascular: denies: Chest pain - Respiratory Respiratory: reports: Cough (improved over last few days; still difficult to manage secretions; fatiguing to patient with cough effort), Other (unable to take deep breath). denies: SOB at rest - Gastrointestinal Gastrointestinal: reports: Other (TF jevity;). denies: Constipation (regular inc. BM today), Reflux/heartburn - Genitourinary Genitourinary: reports: Incontinence. denies: Dysuria - Musculoskeletal Musculoskeletal: reports: Stiffness, Limited range of motion (contractures RUE greater than left), Muscle weakness, Transfer issues (pivot transfers with 1-2 people to tilt in space wheelchair; likes OWN bed; does not want hospital bed; sister and patient aware of risk) - Integumentary Integumentary: reports: Dryness - Neurological Neurological: reports: General weakness, Slurred speech (speech soft; more difficult to understand;) - Psychiatric Psychiatric: reports: Hallucinations (at times; are not problematic for patient) . denies: Depression, Anxiety - Endocrine Endocrine: reports: Diabetes type 2 (well controlled no med needed) - Hematologic/Lymphatic Hematologic/Lymphatic: reports: Recurrent infections (second tx for resp infection last few months; hx of UTIs/ear infection) - All Other Systems All Other Systems: reports: Reviewed and negative Physical Exam - Vital Signs Temperature: 96.8 C Pulse Rate: 64 Respiratory Rate: 20 O2 Saturation: 95 (ra @ rest) Blood Pressure: 112/64 - Physical Exam General Appearance: positive: Alert. negative: Anxious Eyes Bilateral: positive: Other (difficulty focusing on me;) ENT: positive: Dry mucous membranes. negative: Other (no s/s candidiasis) Neck: positive: Stiff neck (tipped back; shoulders tense; has started massage weekly) Cardiovascular: positive: Regular rate & rhythm Respiratory: positive: Diminished throughout (difficulty taking deep breath). negative: Wheezes, Rales, Rhonchi Abdomen: positive: Soft, Nml bowel sounds, Other (right soft hernia mid abd/not painful) Skin: positive: Dryness. negative: Pressure wound Extremities: positive: No pedal edema. negative: Full ROM (RUE with contractures mod/LUE mild) Neurologic/Psychiatric: positive: Slurred/abnml speech, Other (patient with increase difficulty communicating; needs yes/no; few sentences; still made jokes ; some echoing) Palliative Care - POLST Patient has POLST: Yes POLST Status: DNR, Comfort Measures (new DNAR filled out with current goals in transition to hospice; sister aware to sign;) Pain: Pain unchanged, Location (bilateral shoulder discomfort; current low dose hydrocodone has been effective;) Performance Status: Patient dependent for dressing, 1-2 person pivot transfers depending on impulsivity and staff, has been showered twice a week by SNF. Does have private caregiver Ruben, she does provide companionship, and some personal care support. She comes about 4 times a week. - Palliative Care Discussion: Discussed with patient in follow-up of our conversation last week, she does remember some of it. We did review the seriousness of her illness, and her continued decline did redefine and reiterate her wishes to stay close to her family, and focus on comfort and quality of life. I had discussed with the hospice medical photographer, they are willing to take her, I do suspect she will have continued decline regarding to her disease process, this patient had been shared with her sister as well who gave me permission to proceed with a conversation regarding hospice. Conversation with Katheryn, regarding hospice, discussed support as far as regular visiting nurses, increased bathing support and "spa treatments", patient does really enjoy touch and massage. She always dresses up, enjoys her "nano" and jewelry, but likes to have her makeup on. Shared with her my worries, that as things change, she and Louie her will need more support, and would like to expand that team to hospice. Defined role of hospice is focusing on living, but I did not know how much longer she had, but we could both agree things are getting worse. Revisited getting permission to move forward with hospice and the focus is on her comfort several ways, and she said yes to this service and goal. Reviewed this with Louie, she will expect call from hospice, aware she is the one to sign paperwork, though patient can participate still in shared decision making, patient's ability to present with medical decision making capacity is limited. Support provided for Clementina Briones her caregiver as well, has been constant over the last 2 years, expressing her feelings of anticipatory loss and grief, she confirms she has seen the fairly significant changes over the last couple of months as well. Patient has a strong kalani, and is not scared or distressed by our conversation , is already supported by the radiology transporter through palliative care. Impression and Recommendations - Palliative Care Impression: This is a jose 73-year-old woman with progressive supranuclear palsy, she continues on a slow but steady decline. Goals were reviewed with both patient and sister, will transition to hospice support. Recommendations/Counseling Done: 1. PSP. Patient with short reprieve given her difficulty with secretions, has improved over the last couple days. She still has difficulty taking a deep breath, is unable to clear adequately, does get adequate hyoscyamine. Patient with decline evidenced by continued deterioration of her vision, for her respiratory effort, increased difficulty managing his secretions, and functional decline. Given concern for acute respiratory demise, will transition to hospice for more intense support, and monitoring of symptoms. Patient's goals are reflective of wanting to stay in her current situation, will transition to comfort focused treatment. 2. Advanced care planning. Follow-up with patient and sister regarding transitioning to hospice, counseling done regarding the continuum of care, sister wanting palliative care WEIGHER AND GRADER to stay involved given long-term relationship and ability to communicate with her regarding "hard subjects". This is been discussed with the medical director dental services, will continue to see patient either as the attending or support. Dr. Alberts aware of pending transition to hospice, in agreement, has only had his team visit with her for initial contact, Dr. Balderrama recently transitioned patient, she had been her intermediate teacher PCP. Time Spent: 45 minutes with greater than 50% of this done in counseling regarding transitioning to hospice, goals of care, and anticipatory guidance.
== END 2018-03-18 17:12 | disposition home or self-care (01) ==
LOC: PC 17:11
PROVIDERS: ATTEND Nurse Practitioner Adult Health
DX: Z51.5 Encounter for palliative care (principal); G23.1 Progressive supranuclear ophthalmoplegia [Steele-Richardson-Olszewski]; R13.10 Dysphagia, unspecified; R32 Unspecified urinary incontinence; H54.7 Unspecified visual loss; Z66 Do not resuscitate; Z79.891 Long term (current) use of opiate analgesic; Z87.440 Personal history of urinary (tract) infections; Z86.19 Personal history of other infectious and parasitic diseases; Z99.3 Dependence on wheelchair
CPT/HCPCS: 99310